=== PATIENT | male | born 1955 | race African-American/Black ===

== ENCOUNTER 2019-12-10 13:55 | Outpatient (REF) | payer OTHER, SELFPAY ==
[2019-12-10 15:33] LABS: Prostate Specific Antigen 0.05 ng/mL (<0.05-4.0)
== END 2019-12-10 13:56 | disposition home or self-care (01) ==
LOC: HO.LAB 13:55
PROVIDERS: PCP Internal Medicine; Visit Provider Urology
DX: C61 Malignant neoplasm of prostate (principal)
CPT/HCPCS: 84153

== ENCOUNTER 2020-01-28 09:55 | Outpatient (REF) | payer OTHER, SELFPAY ==
[2020-01-28 11:29] LABS: Prostate Specific Antigen 0.06 ng/mL (<0.05-4.0)
== END 2020-01-28 09:56 | disposition home or self-care (01) ==
LOC: HO.LAB 09:55
PROVIDERS: PCP Internal Medicine; Visit Provider Urology
DX: C61 Malignant neoplasm of prostate (principal)
CPT/HCPCS: 84153

== ENCOUNTER → 2020-03-04 14:15 | Outpatient (BNVA) | payer BC, SELFPAY | PROVIDERS: Visit Provider Urology | DX: C61 Malignant neoplasm of prostate (principal) | CPT/HCPCS: 96402; J9217 ==

== ENCOUNTER → 2020-04-09 14:01 | Outpatient (REF) | payer BC, SELFPAY ==
--- NOTE | 2020-04-09 14:00 | CA_ITS ---
Transthoracic Echocardiogram Patient (Last, First, Middle): Chico Gustafson H Gender: Male Date of : 1955 Age: 64 Procedure Date: 04/09/2020 Procedure Type: Transthoracic Echocardiogram Location: OP Height: 190.5 cm Weight: 72.58 kg BSA: 2.00 m2 Heart Rate: bpm BP: 120 / 80 mmHg Leather Colorer: NIKOLAS Referring MD: Duncan Noonan MD Symptoms: I34.0 NON RHEUMATIC MITRAL REGURG I34.1 MITRAL VALVE PROLAPS Study Quality: Good ECG Rhythm: Sinus Conclusions: - The left ventricular systolic function is hyperdynamic. The visually estimated ejection fraction is >70%. - The left atrium is severely dilated. - There is moderate posterior mitral leaflet prolapse. There is moderate to severe mitral valve regurgitation. Findings Left Ventricle Normal left ventricular cavity size. There is normal left ventricular wall thickness. The left ventricular systolic function is hyperdynamic. The visually estimated ejection fraction is >70%. There is no evidence of regional wall motion abnormalities. Diastolic function is normal for age. Right Ventricle Normal right ventricular cavity size and systolic function. Atria The left atrium is severely dilated. The right atrium is normal in size. Aortic Valve There is a normal trileaflet aortic valve. There is no aortic valve stenosis. There is trace (trivial) aortic valve regurgitation. Mitral Valve The mitral valve appears myxomatous. There is moderate posterior mitral leaflet prolapse. There is moderate to severe mitral valve regurgitation. There is no mitral valve stenosis. Pulmonic Valve The pulmonic valve is likely normal. There is mild pulmonic valve regurgitation. Tricuspid Valve Normal tricuspid valve structure. There is mild to moderate tricuspid valve regurgitation. The right ventricular systolic pressure is 35 mmHg. Top normal RVSP. Great Vessels The aortic annulus, sinuses of valsalva, and asc aorta are normal in size. Venous The inferior vena cava is normal in size and collapses greater than 50% with inspiration. Pericardium/Pleural There is no evidence of pericardial effusion. Prior Study Comparison No significant change compared to prior study dated: 10/22/2019. Measurements 2D Linear Measurements IVSd: 1.01 0.6-0.9/0.6-1.0 cm LVIDd: 4.96 3.9-5.3/4.2-5.9 cm LVIDd Index: 2.48 2.4-3.2/2.2-3.1 cm/m2 LVIDs: 2.73 2.0-3.6 cm LVPWd: 1.01 0.7-1.1 cm Ao Root: 3.70 2.1-3.5 cm LA Diam: 3.80 2.7-3.8/3.0-4.0 cm LAIDs Index: 1.90 1.5-2.3 cm/m2 LV Mass: 226.77 67-162/88-224 g LV Mass Index: 113.38 43-95/49-115 g/m2 LVOT Diam: 2.10 3.0+(-)1.3 cm 2D Systolic Function EF 4C: 73.90 >55% EF 2C: 72.70 >55% EF BiP: 73.30 >55% Mitral Valve MV Pk E: 1.03 MV PK A: 0.50 MV Decel Time: 190.00 E/A: 2.10 E'Lateral: 16.40 E'Medial: 8.61 E/E' Med: 12.00 E/E' Lat: 6.30 PHT: 56.00 MVA PHT: 3.93 Decel [place]: 5.43 Aortic Valve AoV Pk Alexis: 1.57 AoV Mn Alexis: 1.09 AoV VTI: 0.30 AoV Pk Grad: 10.00 Aov Mn Grad: 5.00 LUIS Cont.VTI: 2.60 LVOT LVOT Pk Alexis: 1.30 LVOT Mn Alexis: 0.76 LVOT VTI: 0.23 LVOT Pk Grad: 7.00 LVOT Mn Grad: 3.00 LVOT Diam: 2.10 LVOT Area: 3.46 Diastolic Function MV Pk E: 1.03 MV Pk A: 0.50 E/A: 2.10 E'Medial: 8.61 E/E' Med: 12.00 E' Laterial: 16.40 E/E' Lat: 6.30 Tricuspid Valve TR Pk Alexis: 2.84 TR Pk Grad: 32.00 RA Press: 3.00 RVSP: 35.00 Great Vessels Aorta Ao Root-2D: 3.70 2.0-3.7 cm Ao Asc: 3.30 2.1-3.4 cm Ao Arch: 3.50 Updated in Other Vendor System with Status of Final Duncan Noonan MD electronically signed on 04/12/2020 12:44:50 PM with status of Final
== END ==
LOC: HO.CARD 14:01
PROVIDERS: Visit Provider Internal Medicine
DX: I34.0 Nonrheumatic mitral (valve) insufficiency (principal); I34.1 Nonrheumatic mitral (valve) prolapse
CPT/HCPCS: 93306

== ENCOUNTER → 2020-04-30 14:14 | Outpatient (BNVA) | payer BC, SELFPAY | PROVIDERS: PCP Internal Medicine; Visit Provider Internal Medicine ==

== ENCOUNTER 2020-06-13 08:36 | Day surgery (SDC) | payer BC, SELFPAY ==
[2020-06-06 14:40] VITALS: BMI 19.3
--- NOTE | 2020-06-11 12:40 | P.CONAN_ITS ---
Documented by User: Coco Valdez 06/11/20 12:40 HPI - Anesthesia Eval Consult details Narrative: 64yo M for Transesophageal Echocardiogram [facility] Active Problems Active Problems: All Active Problems (Updated 06/06/20 @ 14:45 by Roro Middleton) Essential hypertension (Acute) Non-rheumatic mitral regurgitation (Acute) Past Medical History Medical History BPH (benign prostatic hyperplasia) Elevated PSA Essential hypertension Non-rheumatic mitral regurgitation Prostate cancer UTI (urinary tract infection) Family History Family History Other AA (alcohol abuse) HTN (hypertension) Surgical History Surgical History H/O colonoscopy History of esophagogastroduodenoscopy (EGD) Social History Social History Advance Directives Information Provided: No Meds Allergies Allergy/AdvReac Type Severity Reaction Status Date / Time No Known Allergies Allergy Verified 06/06/20 14:12 [No Known Allergies*] Home Medications Medication Instructions Recorded Confirmed Last Taken Type amlodipine 5 mg tablet 5 mg PO DAILY 01/25/20 06/06/20 06/13/20 History tamsulosin 0.4 mg capsule 0.4 mg PO DAILY 01/25/20 06/06/20 Unknown History Exam Exam Date and Time: June 11, 2020 1240 Height,Weight and Vital Signs: Height 6 ft 3 in Weight 70.4 kg Narrative Narrative: ECHO 04/2020 Conclusions: - The left ventricular systolic function is hyperdynamic. The visually estimated ejection fraction is >70%. - The left atrium is severely dilated. - There is moderate posterior mitral leaflet prolapse. There is moderate to severe mitral valve regurgitation. Assessment and Plan Assessment Anesthesia Assessment: Chart Reviewed Documented by User: Pao Luo 06/13/20 11:07 [facility] Past Medical History Medical History BPH (benign prostatic hyperplasia) Elevated PSA Essential hypertension Non-rheumatic mitral regurgitation Prostate cancer UTI (urinary tract infection) Family History Family History Other AA (alcohol abuse) HTN (hypertension) Family history of problems with anesthesia: No Surgical History Surgical History H/O colonoscopy History of esophagogastroduodenoscopy (EGD) History of Problems with Anesthesia: No Social History Social History Advance Directives Information Provided: No Meds Allergies Allergy/AdvReac Type Severity Reaction Status Date / Time No Known Allergies Allergy Verified 06/06/20 14:12 [No Known Allergies*] Home Medications Medication Instructions Recorded Confirmed Last Taken Type amlodipine 5 mg tablet 5 mg PO DAILY 01/25/20 06/06/20 06/13/20 History tamsulosin 0.4 mg capsule 0.4 mg PO DAILY 01/25/20 06/06/20 Unknown History Exam Height,Weight and Vital Signs: Vital Signs Temp Pulse Resp BP Pulse Ox 96.5 F L 67 18 152/93 H 99 06/13/20 09:01 06/13/20 09:01 06/13/20 09:01 06/13/20 09:01 06/13/20 09:01 Pertinent Lab Results Pertinent Lab Results: EK06/13/2020- [id number].?LAE. RBBB. LAFB. Bifascicular block. LVH Airway Mallampati Class: II TM Dist: >3cm Neck ROM: Full Heart: RRR + murmur Lungs: CTAB Assessment and Plan Assessment Anesthesia Assessment: Anesthesia Plan Discussed and Chart Reviewed Final Anesthetic Review NPO: Yes ASA Class: II Final Preanesthetic Review: No Changes in Pt Med Stat, Meds/Allgs Chart Reviewed, Consent Obtained/Reviewed and Anes Risks/Benef Reviewed Patient Risk: Intermediate Procedure Risk: Low Assessment/Block/Sedation in SS: Assess/Block/Sedation-SS Anesthetic Plan Anesthetic Plan: MAC: Disposition: Standard PACU
--- NOTE | 2020-06-13 | ECG_ITS ---
Test Reason : CARDIAC TEST Blood Pressure : / mmHG Vent. Rate : 061 BPM Atrial Rate : 061 BPM P-R Int : 172 ms QRS Dur : 140 ms QT Int : 458 ms P-R-T Axes : 070 -63 009 degrees QTc Int : 461 ms Normal sinus rhythm Possible Left atrial enlargement Right bundle branch block Left anterior fascicular block Bifascicular block Abnormal ECG When compared with ECG of 21-FEB-2017 14:40, Vent. rate has decreased BY 32 BPM Referred By: Pao Luo Electronically Signed By:ELSIE DAY
--- NOTE | 2020-06-13 06:53 | CA_ITS ---
Transesophageal Echocardiogram Patient (Last, First, Middle): Ch[place] Gustafson H Gender: Male Date of : 1955 Age: 64 Procedure Date: 06/13/2020 Procedure Type: Transesophageal Echocardiogram Location: [facility] Height: 190.5 cm Weight: kg BP: 135 / 70 mmHg Striker Off: MARYSE Cordero MD: Duncan Noonan MD Robotic Maintenance Technician: Dnucan Noonan MD Symptoms: I34.0 - Nonrheumatic mitral (valve) insufficiency Conclusion: ??? The left ventricular systolic function is normal. The visually estimated ejection fraction is between 60-65%. ??? The mitral valve appears myxomatous. There is severe posterior mitral leaflet prolapse. There is severe mitral valve regurgitation. ??? P2 leaflet seems most involved and part of P3. ??? Effective regurgitant orifice area calculated to be 0.39sqcm; 0.32sqcm; 0.3sqcm; 0.45sqcm in different views (average 0.36sqcm); regurgitant volumes 80ml, 65ml; 64ml; 96ml in different views (average 76ml). ??? Myxomatous tricuspid valve is noted. There is mild to moderate tricuspid valve regurgitation. Findings Procedure Information The quality of the study was good. Consent was obtained prior to the procedure. Pre ROSITA oral cavity was checked and revealed no overcrowding. The adult 3D probe was passed with no difficulty. This was a technically good study. Normal sinus rhythm noted at rest. Left Ventricle Normal left ventricular cavity size. The left ventricular systolic function is normal. The visually estimated ejection fraction is between 60-65%. There is no evidence of regional wall motion abnormalities. Right Ventricle Normal right ventricular cavity size and systolic function. Atria There is no evidence of a thrombus in the left atrial appendage. There is no evidence of interatrial shunt. Aortic Valve There is a normal trileaflet aortic valve. There is no aortic valve stenosis. There is trace (trivial) aortic valve regurgitation. Mitral Valve The mitral valve appears myxomatous. There is severe posterior mitral leaflet prolapse. There is severe mitral valve regurgitation. The mitral regurgitation jet is directed centrally. There is no mitral valve stenosis. P2 leaflet seems most involved and part of P3. Effective regurgitant orifice area calculated to be 0.39sqcm; 0.32sqcm; 0.3sqcm;.45sqcm in different views (average 0.36sqcm); regurgitant volumes 80ml, 65ml; 64ml; 96ml in different views (average 76ml). Pulmonic Valve The pulmonic valve was not well visualized. There is trace pulmonic valve regurgitation. Tricuspid Valve Myxomatous tricuspid valve is noted. There is mild to moderate tricuspid valve regurgitation. Great Vessels All visible segments of the aorta are normal in size. Pericardium/Pleural There is no evidence of pericardial effusion. Prior Study Comparison No significant change compared to prior study dated: 04/09/2020. Measurements Mitral Valve MR Vol - PW Dopp: 79.42 MR VTI: 2.09 MR ERO: 38.00 MR Alias Alexis: 0.39 MR RAD: 1.00 Updated by Duncan Noonan on 04:53 PM with Status of Final Duncan Noonan MD electronically signed on 06/13/2020 4:53:56 PM with status of Final
[2020-06-13 09:01] VITALS: BP 152/93; PULSE 67; RESP 18; TEMP 35.8; O2SAT 99
[2020-06-13] MEDS: Lactated Ringers 1,000 ML 100 ML IVCONT (09:22)
--- NOTE | 2020-06-13 10:07 | MHC.SHP ---
Pre-Procedural Eval Section B Chief Complaint: Mitral Valve Insufficiency Allergies: Allergies Allergy/AdvReac Type Severity Reaction Status Date / Time No Known Allergies Allergy Verified 06/06/20 14:12 [No Known Allergies*] Plan I have reviewed the history and physical and performed a pertinent physical examination on my patient. No changes have occurred unless specified.
[2020-06-13 10:55] VITALS: BP 116/72; PULSE 66; RESP 16; TEMP 36.9; O2SAT 97
[2020-06-13 11:10] VITALS: BP 115/72; PULSE 64; RESP 18; O2SAT 100
[2020-06-13 11:22] VITALS: BP 150/88; PULSE 66; RESP 18; TEMP 36.6; O2SAT 100
== END 2020-06-13 11:52 | disposition home or self-care (01) ==
PROVIDERS: PCP Internal Medicine; Visit Provider Internal Medicine
PROC: (CPT 93312; principal; 2020-06-13 10:30)
DX: I07.1 Rheumatic tricuspid insufficiency (principal); I34.0 Nonrheumatic mitral (valve) insufficiency
CPT/HCPCS: 93005; 93312; J2250

== ENCOUNTER 2020-06-16 13:48 | Outpatient (REF) | payer BC, SELFPAY ==
[2020-06-16 15:36] LABS: Prostate Specific Antigen < 0.05 ng/mL (<0.05-4.0)
== END 2020-06-16 13:49 | disposition home or self-care (01) ==
LOC: HO.LAB 13:48
PROVIDERS: PCP Internal Medicine; Visit Provider Urology
DX: Z12.5 Encounter for screening for malignant neoplasm of prostate (principal); C61 Malignant neoplasm of prostate
CPT/HCPCS: 36415; 84153

== ENCOUNTER → 2020-06-17 13:56 | Outpatient (BNVA) | payer BC, SELFPAY | PROVIDERS: PCP Internal Medicine; Visit Provider Urology ==

== ENCOUNTER 2020-06-30 13:49 | Outpatient (REF) | payer BC, SELFPAY ==
[2020-06-30 18:06] LABS: Hematocrit 38.5 % (42-52); Hemoglobin 12.5 g/dl (14.0-18.0); Mean Corpuscular HGB Conc 32.5 g/dl (31.0-36.0); Mean Corpuscular Hemoglobin 28.1 pg (27.0-33.0); Mean Corpuscular Volume 86.5 fL (80-98); Mean Platelet Volume 10.5 fL (9.4-12.4); Platelet Count 252 X10*3/uL (160-400); Red Blood Count 4.45 X10*6/uL (4.60-5.80); Red Cell Distribution Width 15.2 % (11.0-16.0); White Blood Count 4.2 X10*3/uL (4.8-10.8)
[2020-06-30 18:13] LABS: Prothrombin Time 12.3 SEC (10.8-13.0)
[2020-06-30 18:26] LABS: Anion Gap 15 (12-20); Blood Urea Nitrogen 18 mg/dL (9-16); Carbon Dioxide 26 mmol/L (22-29); Chloride 105 mmol/L (96-108); Estimated Glomerular Filt Rate > 60; Glucose Random 126 mg/dL (60-115); Potassium 4.1 mmol/L (3.3-5.1); Sodium 142 mmol/L (135-145)
== END 2020-06-30 13:50 | disposition home or self-care (01) ==
LOC: HO.LAB 13:49
PROVIDERS: PCP Internal Medicine; Referring Provider Internal Medicine; Visit Provider Internal Medicine
DX: I34.0 Nonrheumatic mitral (valve) insufficiency (principal); I10 Essential (primary) hypertension; R06.02 Shortness of breath; R53.83 Other fatigue; N40.0 Benign prostatic hyperplasia without lower urinary tract symptoms; R97.20 Elevated prostate specific antigen [PSA]; Z79.899 Other long term (current) drug therapy
CPT/HCPCS: 36415; 80048; 85027; 85610

== ENCOUNTER → 2020-07-31 14:25 | Outpatient (BNVA) | payer BC, SELFPAY | PROVIDERS: PCP Internal Medicine; Referring Provider Internal Medicine; Visit Provider Internal Medicine ==

== ENCOUNTER 2020-09-01 09:48 | Outpatient (REF) | payer BC, SELFPAY ==
[2020-09-01 11:19] LABS: Prostate Specific Antigen 0.05 ng/mL (<0.05-4.0)
[2020-09-05 12:31] LABS: Testosterone, Total 13 ng/dL (250-1100)
== END 2020-09-01 09:49 | disposition home or self-care (01) ==
LOC: HO.LAB 09:48
PROVIDERS: PCP Internal Medicine; Visit Provider Urology
DX: Z12.5 Encounter for screening for malignant neoplasm of prostate (principal); C61 Malignant neoplasm of prostate
CPT/HCPCS: 36415; 84153; 84403

== ENCOUNTER → 2020-09-19 14:33 | Outpatient (BNVA) | payer BC, SELFPAY | PROVIDERS: PCP Internal Medicine; Visit Provider Urology ==

== ENCOUNTER → 2020-10-20 12:14 | Outpatient (BNVA) | payer BC, SELFPAY | PROVIDERS: PCP Internal Medicine; Referring Provider Internal Medicine; Visit Provider Internal Medicine ==

== ENCOUNTER 2020-10-28 11:25 | Outpatient (REF) | payer BC, SELFPAY ==
[2020-10-28 12:24] LABS: Appearance Urine CLEAR; Color Urine YELLOW; Glucose Urine UA NEG (NEG); Leukocyte Esterase Urine NEG (NEG); Nitrite Urine NEG (NEG); Urine Blood TRACE (NEG); Urine Ketones NEG (NEG); Urine Protein NEG (NEG-TRACE)
[2020-10-28 12:58] LABS: Mucus Urine 1+ /LPF; Squamous Epithelial Cell Urine TRACE /LPF
== END 2020-10-28 11:26 | disposition home or self-care (01) ==
LOC: HO.LAB 11:25
PROVIDERS: PCP Internal Medicine; Visit Provider Urology
DX: N40.1 Benign prostatic hyperplasia with lower urinary tract symptoms (principal)
CPT/HCPCS: 81001; 87086

== ENCOUNTER → 2020-11-24 14:41 | Outpatient (REF) | payer BC, SELFPAY ==
--- NOTE | 2020-11-24 15:14 | CA_ITS ---
Transthoracic Echocardiogram Patient (Last, First, Middle): Chico Gustafson H Gender: Male Date of : 1955 Age: 65 Procedure Date: 11/24/2020 Procedure Type: Transthoracic Echocardiogram Location: OP Height: 190.5 cm Weight: 74.84 kg BSA: 2.02 m2 Heart Rate: bpm BP: 118 / 80 mmHg Gis Consultant: VH/CP Referring MD: Duncan Noonan MD Symptoms: Z98.890 - Other specified postprocedural states Study Quality: Fair ECG Rhythm: Sinus Conclusions: - LVEF difficult to calculate due to paradoxical septal motion but likely > 50%. - There is moderately decreased right ventricular systolic function. - Myxomatous mitral valve, status post repair with no significant stenosis or regurgitation. Findings Left Ventricle Normal left ventricular cavity size. There is normal left ventricular wall thickness. There is paradoxical septal motion consistent with post-operative status. Diastolic function is normal for age. LVEF difficult to calculate due to paradoxical septal motion but likely > 50%. Right Ventricle Normal right ventricular cavity size. There is moderately decreased right ventricular systolic function. There is a pacemaker wire seen in the right ventricle. TAPSE 0.96cm. Atria Both atria are normal in size. Aortic Valve There is a normal trileaflet aortic valve. There is no aortic valve stenosis. There is trace (trivial) aortic valve regurgitation. Mitral Valve The mitral valve appears myxomatous. There is trace mitral valve regurgitation. There is no mitral valve stenosis. s/p repair. Mean gradient across the mitral valve 2 mm Hg at 66/Min. Pulmonic Valve The pulmonic valve was not well visualized. There is mild pulmonic valve regurgitation. Tricuspid Valve There is trace tricuspid valve regurgitation. The pulmonary artery systolic pressure is normal. Great Vessels The aortic annulus, sinuses of valsalva, and asc aorta are normal in size. Venous The inferior vena cava is normal in size and collapses greater than 50% with inspiration. Pericardium/Pleural There is no evidence of pericardial effusion. Prior Study Comparison Changes noted compared to prior study dated: 06/13/2020. s/p mitral valve repair. Measurements 2D Linear Measurements IVSd: 1.23 0.6-0.9/0.6-1.0 cm LVIDd: 4.20 3.9-5.3/4.2-5.9 cm LVIDd Index: 2.08 2.4-3.2/2.2-3.1 cm/m2 LVIDs: 2.89 2.0-3.6 cm LVPWd: 1.17 0.7-1.1 cm Ao Root: 3.60 2.1-3.5 cm LA Diam: 3.30 2.7-3.8/3.0-4.0 cm LAIDs Index: 1.63 1.5-2.3 cm/m2 LV Mass: 221.94 67-162/88-224 g LV Mass Index: 109.87 43-95/49-115 g/m2 LVOT Diam: 2.10 3.0+(-)1.3 cm 2D Systolic Function EF 4C: 35.10 >55% EF 2C: 24.70 >55% Mitral Valve MV VTI: 0.33 MV Pk Alexis: 1.03 MV Mn Alexis: 0.69 MV Pk Grad: 4.00 MV Mn Grad: 2.00 MV Pk E: 0.87 MV PK A: 0.86 MV Decel Time: 296.00 E/A: 1.00 E'Lateral: 10.80 E'Medial: 4.46 E/E' Med: 19.60 E/E' Lat: 8.10 PHT: 87.00 MVA PHT: 2.53 MVA Continuity: 2.10 Decel [place]: 2.96 Aortic Valve AoV Pk Alexis: 1.18 AoV Mn Alexis: 0.92 AoV VTI: 0.26 AoV Pk Grad: 6.00 Aov Mn Grad: 4.00 LUIS Cont.VTI: 2.60 LVOT LVOT Pk Alexis: 0.97 LVOT Mn Alexis: 0.71 LVOT VTI: 0.20 LVOT Pk Grad: 4.00 LVOT Mn Grad: 2.00 LVOT Diam: 2.10 LVOT Area: 3.46 Diastolic Function MV Pk E: 0.87 MV Pk A: 0.86 E/A: 1.00 E'Medial: 4.46 E/E' Med: 19.60 E' Laterial: 10.80 E/E' Lat: 8.10 Right Ventricle TAPSE (mm): 1.10 TVS' Alexis: 7.50 Tricuspid Valve TV Pk Alexis: 0.86 TV Mn Alexis: 0.51 TV Pk Grad: 3.00 TV Mn Grad: 1.00 TR Pk Alexis: 1.31 TR Pk Grad: 7.00 Great Vessels Aorta Ao Root-2D: 3.60 2.0-3.7 cm Ao Asc: 3.40 2.1-3.4 cm Ao Arch: 3.20 Updated in Other Vendor System with Status of Final Duncan Noonan MD electronically signed on 11/25/2020 4:50:39 PM with status of Final
== END ==
LOC: HO.CARD 14:41
PROVIDERS: PCP Internal Medicine; Visit Provider Internal Medicine
DX: Z98.890 Other specified postprocedural states (principal)
CPT/HCPCS: 93306

== ENCOUNTER 2020-12-16 09:28 | Outpatient (REF) | payer BC, SELFPAY ==
[2020-12-16 09:55] LABS: MANUAL DIFF FLAG NO
[2020-12-16 10:14] LABS: Basophils Absolute Auto 0.1 X10*3/uL (0.0-0.2); Basophils Percent Auto 0.8 % (0-2); Eosinophils Absolute Auto 0.6 X10*3/uL (0.0-0.4); Eosinophils Percent Auto 9.9 % (0-4); Hemoglobin 12.2 g/dl (14.0-18.0); Imm Gran Abs Auto 0.01 X10*3/uL (0.00-0.03); Imm Gran Pct Auto 0.2 % (0.0-0.4); Lymphocytes Absolute Auto 1.2 X10*3/uL (1.2-4.9); Mean Corpuscular HGB Conc 31.3 g/dl (31.0-36.0); Mean Corpuscular Hemoglobin 25.3 pg (27.0-33.0); Mean Corpuscular Volume 80.7 fL (80.0-98.0); Mean Platelet Volume 9.4 fL (9.4-12.4); Monocytes Absolute Auto 0.5 X10*3/uL (0.1-1.2); Monocytes Percent Auto 7.6 % (2-11); Neutrophils Absolute Auto 3.8 x10*3/uL (2.0-8.3); Neutrophils Percent Auto 61.5 % (45-73); Platelet Count 286 X10*3/uL (160-400); Red Blood Count 4.83 X10*6/uL (4.60-5.80); White Blood Count 6.2 X10*3/uL (4.8-10.8)
[2020-12-16 10:30] LABS: Appearance Urine CLOUDY; Color Urine YELLOW; Glucose Urine UA NEG (NEG); Leukocyte Esterase Urine 3+ (NEG); Nitrite Urine POS (NEG); Specific Gravity - Urine 1.025 (1.005-1.025); Urine Blood 3+ (NEG); Urine Ketones 5 MG/DL (NEG); Urine Protein 3+ MG/DL (NEG-TRACE)
[2020-12-16 10:39] LABS: Bacteria Urine TRACE /LPF; RBC Urine 50-75 /HPF (0); WBC Urine TNTC /HPF (0-4)
[2020-12-16 10:46] LABS: Alanine Aminotransferase 14 U/L (0-40); Albumin Level 4.2 g/dL (3.5-5.0); Alkaline Phosphatase 94 U/L (39-117); Anion Gap 13 (12-20); Aspartate Amino Transferase 17 U/L (5-37); Bilirubin Total 0.3 mg/dL (0.0-1.0); Blood Urea Nitrogen 19 mg/dL (9-16); Calcium 9.7 mg/dL (8.4-10.2); Carbon Dioxide 25 mmol/L (22-29); Chloride 107 mmol/L (96-108); Cholesterol 161 mg/dL; Estimated Glomerular Filt Rate > 60; Glucose Fasting 109 mg/dL (60-99); HDL Cholesterol 64 mg/dL; LDL Cholesterol Calculated 86 mg/dl; Potassium 4.1 mmol/L (3.3-5.1); Sodium 141 mmol/L (135-145); Total Protein 7.3 g/dL (6.5-8.0); Triglycerides 57 mg/dL
[2020-12-16 11:05] LABS: Prostate Specific Antigen < 0.05 ng/mL (<0.05-4.0)
[2020-12-20 10:08] LABS: Testosterone, Total 35 ng/dL (250-1100)
== END 2020-12-16 09:29 | disposition home or self-care (01) ==
LOC: HO.LAB 09:28
PROVIDERS: Absent Provider Urology; PCP Internal Medicine; Visit Provider Internal Medicine
DX: Z12.5 Encounter for screening for malignant neoplasm of prostate (principal); I10 Essential (primary) hypertension; Z98.890 Other specified postprocedural states
CPT/HCPCS: 36415; 80053; 80061; 81001; 84153; 84403; 85025

== ENCOUNTER → 2021-01-20 12:53 | Outpatient (BNVA) | payer BC, SELFPAY | PROVIDERS: PCP Internal Medicine; Visit Provider Urology | DX: N40.1 Benign prostatic hyperplasia with lower urinary tract symptoms (principal); C61 Malignant neoplasm of prostate | CPT/HCPCS: 52000 ==

== ENCOUNTER → 2021-01-27 14:11 | Outpatient (BNVA) | payer BC, SELFPAY | PROVIDERS: PCP Internal Medicine; Referring Provider Internal Medicine; Visit Provider Internal Medicine ==

== ENCOUNTER 2021-04-20 14:07 | Outpatient (REF) | payer BC, SELFPAY ==
[2021-04-20 15:40] LABS: Prostate Specific Antigen 0.09 ng/mL (<0.05-4.0)
[2021-04-24 11:11] LABS: Testosterone, Total 73 ng/dL (250-1100)
== END 2021-04-20 14:08 | disposition home or self-care (01) ==
LOC: HO.LAB 14:07
PROVIDERS: PCP Internal Medicine; Visit Provider Urology
DX: Z12.5 Encounter for screening for malignant neoplasm of prostate (principal); C61 Malignant neoplasm of prostate
CPT/HCPCS: 36415; 84153; 84403

== ENCOUNTER → 2021-05-18 13:00 | Outpatient (BNVA) | payer BC, SELFPAY | PROVIDERS: PCP Internal Medicine; Referring Provider Internal Medicine; Visit Provider Internal Medicine | DX: Z45.018 Encounter for adjustment and management of other part of cardiac pacemaker (principal); I44.2 Atrioventricular block, complete; I10 Essential (primary) hypertension; Z98.890 Other specified postprocedural states | CPT/HCPCS: 93005 ==

== ENCOUNTER → 2021-05-19 11:34 | Outpatient (BNVA) | payer BC, SELFPAY | PROVIDERS: PCP Internal Medicine; Visit Provider Urology | DX: Z13.89 Encounter for screening for other disorder (principal) ==

== ENCOUNTER 2021-08-25 11:19 | Outpatient (REF) | payer BC, SELFPAY ==
[2021-08-25 13:26] LABS: Prostate Specific Antigen 0.08 ng/mL (<0.05-4.0)
[2021-09-02 11:07] LABS: Testosterone, Total 72 ng/dL (250-1100)
== END 2021-08-25 11:20 | disposition home or self-care (01) ==
LOC: HO.LAB 11:19
PROVIDERS: PCP Internal Medicine; Visit Provider Urology
DX: Z12.5 Encounter for screening for malignant neoplasm of prostate (principal); C61 Malignant neoplasm of prostate
CPT/HCPCS: 36415; 84153; 84403

== ENCOUNTER 2021-09-21 14:12 | Outpatient (REF) | payer BC, SELFPAY ==
[2021-09-21 14:27] LABS: MANUAL DIFF FLAG NO
[2021-09-21 15:19] LABS: Basophils Absolute Auto 0.1 X10*3/uL (0.0-0.2); Basophils Percent Auto 1.2 % (0-2); Eosinophils Absolute Auto 0.4 X10*3/uL (0.0-0.4); Eosinophils Percent Auto 9.1 % (0-4); Hematocrit 39.3 % (42.0-52.0); Hemoglobin 12.7 g/dl (14.0-18.0); Imm Gran Abs Auto 0.01 X10*3/uL (0.00-0.03); Imm Gran Pct Auto 0.2 % (0.0-0.4); Lymphocytes Absolute Auto 1.4 X10*3/uL (1.2-4.9); Lymphocytes Percent Auto 32.5 % (20-40); Mean Corpuscular HGB Conc 32.3 g/dl (31.0-36.0); Mean Corpuscular Hemoglobin 28.3 pg (27.0-33.0); Mean Corpuscular Volume 87.7 fL (80.0-98.0); Monocytes Absolute Auto 0.6 X10*3/uL (0.1-1.2); Monocytes Percent Auto 14.1 % (2-11); Neutrophils Absolute Auto 1.8 x10*3/uL (2.0-8.3); Neutrophils Percent Auto 42.9 % (45-73); Platelet Count 254 X10*3/uL (160-400); Red Blood Count 4.48 X10*6/uL (4.60-5.80); Red Cell Distribution Width 15.4 % (11.0-16.0); White Blood Count 4.2 X10*3/uL (4.8-10.8)
[2021-09-21 15:41] LABS: Alanine Aminotransferase 21 U/L (0-40); Albumin Level 4.1 g/dL (3.5-5.0); Alkaline Phosphatase 67 U/L (39-117); Anion Gap 12 (12-20); Aspartate Amino Transferase 27 U/L (5-37); Bilirubin Total 0.2 mg/dL (0.0-1.0); Blood Urea Nitrogen 17 mg/dL (9-16); Calcium 9.4 mg/dL (8.4-10.2); Carbon Dioxide 28 mmol/L (22-29); Chloride 106 mmol/L (96-108); Estimated Glomerular Filt Rate 57; Glucose Random 84 mg/dL (60-115); Potassium 4.3 mmol/L (3.3-5.1); Sodium 142 mmol/L (135-145); Total Protein 6.8 g/dL (6.5-8.0)
== END 2021-09-21 14:13 | disposition home or self-care (01) ==
LOC: HO.LAB 14:12
PROVIDERS: PCP Internal Medicine; Visit Provider Internal Medicine
DX: D64.9 Anemia, unspecified (principal); I10 Essential (primary) hypertension; R73.03 Prediabetes
CPT/HCPCS: 36415; 80053; 85025

== ENCOUNTER → 2021-10-01 14:33 | Outpatient (BNVA) | payer BC, SELFPAY | PROVIDERS: PCP Internal Medicine; Visit Provider Urology | DX: N40.0 Benign prostatic hyperplasia without lower urinary tract symptoms (principal); C61 Malignant neoplasm of prostate; E29.1 Testicular hypofunction | CPT/HCPCS: 51798 ==

== ENCOUNTER → 2021-11-09 14:00 | Outpatient (REF) | payer BC, SELFPAY ==
--- NOTE | 2021-11-09 14:02 | CA_ITS ---
Transthoracic Echocardiogram Patient (Last, First, Middle): Ch[place] Gustafson H Gender: Male Date of : 1955 Age: 66 Procedure Date: 11/09/2021 Procedure Type: Transthoracic Echocardiogram Location: OP Height: 190.5 cm Weight: 72.58 kg BSA: 2.00 m2 Heart Rate: bpm BP: 114 / 76 mmHg Stranner: DONATO Referring MD: Duncan Noonan MD Television Script Writer: Martir Wright MD Symptoms: Z98.890 - Other specified postprocedural states Study Quality: Adequate ECG Rhythm: Ventriculary paced rhythm Conclusions: - 1. Normal LV systolic function with pseudonormal filling pattern 2. Mitral valve repair appears intact 3. Normal RV systolic pressure 4. No gross pericardial effusion Findings Left Ventricle Normal left ventricular size, thickness, and systolic function. The visually estimated ejection fraction is between 60-65%. There is paradoxical septal motion consistent with a right ventricular pacemaker. Spectral Doppler is indicative of a pseudonormal filling pattern. E/E prime ratio is between 8 and 15 consistent with indeterminate filling pressures. Right Ventricle Mildly increased right ventricular cavity size. There is borderline right ventricular systolic function. There is a pacemaker wire seen in the right ventricle. Atria The left atrium is normal in size. Interatrial shunt cannot be excluded. The right atrium is likely dilated. A pacemaker wire is identified in the right atrium. Aortic Valve Normal aortic valve structure and function. There is no aortic valve stenosis. There is no aortic valve regurgitation. Mitral Valve There is mild anterior and moderate posterior mitral leaflet thickening. There is no mitral valve regurgitation. There is no mitral valve stenosis. Mitral annuloplasty ring in place Pulmonic Valve The pulmonic valve is likely normal. There is mild pulmonic valve regurgitation. Tricuspid Valve Normal tricuspid valve structure. There is trace tricuspid valve regurgitation. The right ventricular systolic pressure is normal. The right ventricular systolic pressure is 15 mmHg. Normal right atrial pressure. There is no evidence of pulmonary hypertension. Great Vessels All visible segments of the aorta are normal in size. The pulmonary artery was not well visualized. Venous The inferior vena cava is normal in size and collapses greater than 50% with inspiration. Pericardium/Pleural There is no evidence of pericardial effusion. Prior Study Comparison Changes noted compared to prior study dated: 11/24/2020. RV systolic function does not appear as depressed. LV systolic function is normal Measurements 2D Linear Measurements IVSd: 0.85 0.6-0.9/0.6-1.0 cm LVIDd: 4.12 3.9-5.3/4.2-5.9 cm LVIDd Index: 2.06 2.4-3.2/2.2-3.1 cm/m2 LVIDs: 2.46 2.0-3.6 cm LVPWd: 1.11 0.7-1.1 cm LA Diam: 3.30 2.7-3.8/3.0-4.0 cm LAIDs Index: 1.65 1.5-2.3 cm/m2 LV Mass: 160.44 67-162/88-224 g LV Mass Index: 80.22 43-95/49-115 g/m2 LVOT Diam: 2.10 3.0+(-)1.3 cm 2D Systolic Function EF 4C: 56.40 >55% EF 2C: 63.90 >55% EF BiP: 60.20 >55% Mitral Valve MV VTI: 0.45 MV Pk Alexis: 1.32 MV Mn Alexis: 0.79 MV Pk Grad: 7.00 MV Mn Grad: 3.00 MV Pk E: 0.83 MV PK A: 0.89 MV Decel Time: 254.00 E/A: 0.90 E'Lateral: 7.72 E'Medial: 4.90 E/E' Med: 17.00 E/E' Lat: 10.80 PHT: 74.00 MVA PHT: 2.97 MVA Continuity: 1.89 Decel [place]: 3.28 Aortic Valve AoV Pk Alexis: 1.30 AoV Mn Alexis: 0.98 AoV VTI: 0.30 AoV Pk Grad: 7.00 Aov Mn Grad: 4.00 LUIS Cont.VTI: 2.81 LVOT LVOT Pk Alexis: 1.17 LVOT Mn Alexis: 0.80 LVOT VTI: 0.24 LVOT Pk Grad: 5.00 LVOT Mn Grad: 3.00 LVOT Diam: 2.10 LVOT Area: 3.46 Diastolic Function MV Pk E: 0.83 MV Pk A: 0.89 E/A: 0.90 E'Medial: 4.90 E/E' Med: 17.00 E' Laterial: 7.72 E/E' Lat: 10.80 Right Ventricle TAPSE (mm): 12.20 TVS' Alexis: 9.79 Tricuspid Valve TR Pk Alexis: 1.74 TR Pk Grad: 12.00 RA Press: 3.00 RVSP: 15.00 Great Vessels Aorta Sinus of Valsalva: 3.90 2.0-3.[address] [place]: 2.97 1.7-3.4 cm Ao Asc: 3.20 2.1-3.4 cm Updated in Other Vendor System with Status of Final Martir Wright MD electronically signed on 11/09/2021 6:57:35 PM with status of Final
[2021-11-11 05:52] LABS: Follicle Stimulating Hormone 37.5 mIU/mL (1.6-8.0); Lutenizing Hormone 15.4 mIU/mL (1.6-15.2)
[2021-11-14 13:21] LABS: Testosterone, Total 83 ng/dL (250-1100)
== END ==
LOC: HO.CARD 14:00
PROVIDERS: Urology; PCP Internal Medicine; Visit Provider Internal Medicine
DX: Z98.890 Other specified postprocedural states (principal); E29.1 Testicular hypofunction
CPT/HCPCS: 36415; 83001; 83002; 84403; 93306

== ENCOUNTER 2021-11-13 13:27 | Outpatient (REF) | payer BC, SELFPAY ==
[2021-11-13 15:59] LABS: Appearance Urine Cloudy; Color Urine Yellow; Glucose Urine UA Negative (Negative); Leukocyte Esterase Urine Large (3+) (Negative); Nitrite Urine Negative (Negative); PH 5.5 (5.0-9.0); Specific Gravity - Urine 1.015 (1.005-1.025); UMIC TRIGGER UA YES; Urine Blood Large (3+) (Negative); Urine Ketones 15 mg/dL (Negative); Urine Protein 100 (2+) mg/dL (Neg-Trace)
[2021-11-13 16:04] LABS: Bacteria Urine 1+ (None Seen); Hyaline Casts Urine 0-2 /LPF (0-2); RBC Urine >20 /HPF (0-2); Squamous Epithelial Cell Urine 0-2 /HPF (0-2); WBC Urine >50 /HPF (0-5)
== END 2021-11-13 13:28 | disposition home or self-care (01) ==
LOC: HO.LAB 13:27
PROVIDERS: PCP Internal Medicine; Visit Provider Urology
DX: N40.1 Benign prostatic hyperplasia with lower urinary tract symptoms (principal)
CPT/HCPCS: 81001; 87086; 87088; 87186

== ENCOUNTER 2022-01-16 10:36 | Outpatient (REF) | payer BC, SELFPAY ==
[2022-01-16 10:48] LABS: MANUAL DIFF FLAG NO
[2022-01-16 11:05] LABS: Basophils Absolute Auto 0.1 X10*3/uL (0.0-0.2); Basophils Percent Auto 1.5 % (0-2); Eosinophils Absolute Auto 0.2 X10*3/uL (0.0-0.4); Eosinophils Percent Auto 5.8 % (0-4); Hematocrit 39.6 % (42.0-52.0); Hemoglobin 13.1 g/dl (14.0-18.0); Lymphocytes Absolute Auto 1.6 X10*3/uL (1.2-4.9); Lymphocytes Percent Auto 37.6 % (20-40); Mean Corpuscular HGB Conc 33.1 g/dl (31.0-36.0); Mean Corpuscular Hemoglobin 28.5 pg (27.0-33.0); Mean Corpuscular Volume 86.1 fL (80.0-98.0); Mean Platelet Volume 9.5 fL (9.4-12.4); Monocytes Absolute Auto 0.5 X10*3/uL (0.1-1.2); Monocytes Percent Auto 11.4 % (2-11); Neutrophils Absolute Auto 1.8 x10*3/uL (2.0-8.3); Neutrophils Percent Auto 43.7 % (45-73); Platelet Count 234 X10*3/uL (160-400); Red Cell Distribution Width 17.5 % (11.0-16.0); White Blood Count 4.1 X10*3/uL (4.8-10.8)
[2022-01-16 11:54] LABS: Alanine Aminotransferase 20 U/L (0-40); Albumin Level 4.2 g/dL (3.5-5.0); Alkaline Phosphatase 60 U/L (39-117); Anion Gap 13 (12-20); Aspartate Amino Transferase 25 U/L (5-37); Bilirubin Total 0.5 mg/dL (0.0-1.0); Blood Urea Nitrogen 18 mg/dL (9-16); Calcium 9.3 mg/dL (8.4-10.2); Carbon Dioxide 28 mmol/L (22-29); Chloride 108 mmol/L (96-108); Cholesterol 166 mg/dL; Estimated Glomerular Filt Rate 58; Glucose Fasting 78 mg/dL (60-99); HDL Cholesterol 83 mg/dL; LDL Cholesterol Calculated 70 mg/dl; Potassium 4.2 mmol/L (3.3-5.1); Sodium 145 mmol/L (135-145); Total Protein 6.7 g/dL (6.5-8.0); Triglycerides 67 mg/dL
== END 2022-01-16 10:37 | disposition home or self-care (01) ==
LOC: HO.LAB 10:36
PROVIDERS: PCP Internal Medicine; Visit Provider Internal Medicine
DX: Z00.00 Encounter for general adult medical examination without abnormal findings (principal)
CPT/HCPCS: 36415; 80053; 80061; 85025

== ENCOUNTER 2022-01-25 13:47 | Outpatient (REF) | payer BC, SELFPAY ==
[2022-01-25 15:22] LABS: PSA,Total (Free>4and<10) 0.24 ng/mL (0.00-4.00)
[2022-02-02 19:39] LABS: Testosterone, Free 144.4 pg/mL (35.0-155.0); Testosterone, Total 897 ng/dL (250-1100)
== END 2022-01-25 13:48 | disposition home or self-care (01) ==
LOC: HO.LAB 13:47
PROVIDERS: PCP Internal Medicine; Visit Provider Urology
DX: Z12.5 Encounter for screening for malignant neoplasm of prostate (principal); E29.1 Testicular hypofunction
CPT/HCPCS: 36415; 84153; 84402; 84403

== ENCOUNTER → 2022-02-17 12:56 | Outpatient (BNVA) | payer BC, SELFPAY | PROVIDERS: PCP Internal Medicine; Visit Provider Urology | DX: Z13.89 Encounter for screening for other disorder (principal) ==

== ENCOUNTER → 2022-04-16 11:37 | Outpatient (BNVA) | payer BC, SELFPAY | PROVIDERS: PCP Internal Medicine; Visit Provider Urology | DX: Z13.89 Encounter for screening for other disorder (principal) ==

== ENCOUNTER 2022-07-06 09:21 | Outpatient (REF) | payer BC, SELFPAY ==
[2022-07-06 09:34] LABS: MANUAL DIFF FLAG NO
[2022-07-06 10:01] LABS: Basophils Absolute Auto 0.1 X10*3/uL (0.0-0.2); Basophils Percent Auto 1.5 % (0-2); Eosinophils Absolute Auto 0.3 X10*3/uL (0.0-0.4); Eosinophils Percent Auto 6.6 % (0-4); Hematocrit 40.3 % (42.0-52.0); Hemoglobin 12.6 g/dl (14.0-18.0); Imm Gran Abs Auto 0.01 X10*3/uL (0.00-0.03); Imm Gran Pct Auto 0.2 % (0.0-0.4); Lymphocytes Absolute Auto 1.5 X10*3/uL (1.2-4.9); Lymphocytes Percent Auto 31.4 % (20-40); Mean Corpuscular HGB Conc 31.3 g/dl (31.0-36.0); Mean Corpuscular Hemoglobin 26.3 pg (27.0-33.0); Mean Corpuscular Volume 84.1 fL (80.0-98.0); Mean Platelet Volume 9.8 fL (9.4-12.4); Monocytes Absolute Auto 0.4 X10*3/uL (0.1-1.2); Monocytes Percent Auto 9.2 % (2-11); Neutrophils Absolute Auto 2.4 x10*3/uL (2.0-8.3); Neutrophils Percent Auto 51.1 % (45-73); Platelet Count 283 X10*3/uL (160-400); Red Blood Count 4.79 X10*6/uL (4.60-5.80); Red Cell Distribution Width 17.3 % (11.0-16.0); White Blood Count 4.7 X10*3/uL (4.8-10.8)
[2022-07-06 10:30] LABS: Anion Gap 12 (12-20); Blood Urea Nitrogen 10 mg/dL (9-16); Calcium 9.5 mg/dL (8.4-10.2); Carbon Dioxide 28 mmol/L (22-29); Chloride 107 mmol/L (96-108); Estimated Glomerular Filt Rate > 60; Glucose Random 95 mg/dL (60-115); Iron 49 mcg/dL (45-160); Percent Iron Saturation 14 % (15-50); Potassium 3.7 mmol/L (3.3-5.1); Sodium 143 mmol/L (135-145); Total Iron Binding Capacity 344 mcg/dL (228-428); Unsaturated Iron Binding 295 ug/dL
== END 2022-07-06 09:22 | disposition home or self-care (01) ==
LOC: HO.LAB 09:21
PROVIDERS: PCP Internal Medicine; Visit Provider Internal Medicine
DX: I12.9 Hypertensive chronic kidney disease with stage 1 through stage 4 chronic kidney disease, or unspecified chronic kidney disease (principal); N18.9 Chronic kidney disease, unspecified; D63.8 Anemia in other chronic diseases classified elsewhere
CPT/HCPCS: 36415; 80048; 83540; 85025

== ENCOUNTER 2022-08-06 09:01 | Outpatient (REF) | payer BC, SELFPAY ==
[2022-08-06 11:17] LABS: Prostate Specific Antigen 0.19 ng/mL (<0.05-4.0)
[2022-08-11 11:33] LABS: Testosterone, Total 837 ng/dL (250-1100)
== END 2022-08-06 09:02 | disposition home or self-care (01) ==
LOC: HO.LAB 09:01
PROVIDERS: PCP Internal Medicine; Visit Provider Urology
DX: Z12.5 Encounter for screening for malignant neoplasm of prostate (principal); E29.1 Testicular hypofunction
CPT/HCPCS: 36415; 84153; 84403

== ENCOUNTER 2022-08-12 08:41 | Outpatient (REF) | payer BC, SELFPAY ==
[2022-08-17 12:12] LABS: Testosterone, Total 191 ng/dL (250-1100)
== END 2022-08-12 08:42 | disposition home or self-care (01) ==
LOC: HO.LAB 08:41
PROVIDERS: Visit Provider Urology
DX: N40.1 Benign prostatic hyperplasia with lower urinary tract symptoms (principal); E29.1 Testicular hypofunction; Z12.5 Encounter for screening for malignant neoplasm of prostate
CPT/HCPCS: 36415; 81001; 84153; 84403; 87086; 87088; 87186

== ENCOUNTER 2022-08-17 11:17 | Outpatient (AMB) | payer BC, SELFPAY ==
--- NOTE | 2022-08-17 11:22 | A.OFFVIS_ITS ---
Intake Intake Visit Reasons: 4M PSA/Testo(set) Intake Note: Patient is present for Follow Up Labs Urology Med: Testosterone, Tamsulosin, Tadalafil Antibiotic Allergy: None Blood Thinner: Aspirin PVR: 0ml Patient states he recently has UTI was prescribed antibiotics (Macrobid) states that it is not fully gone Allergies No Known Allergies [No Known Allergies*] Allergy (Verified 08/17/22 11:23) Medication List - Last Reconciled 08/17/22 by Aden Pickett MD acyclovir 400 mg PO BID amlodipine 5 mg PO QAM aspirin 81 mg PO DAILY metoprolol tartrate 25 mg PO BID nitrofurantoin monohyd/m-cryst 100 mg (Macrobid) 100 mg PO BID 5 days tadalafil 5 mg PO DAILY 90 days tamsulosin 0.4 mg PO DAILY testosterone 2 pumps topical DAILY 28 days HPI HPI Comments History of Present Illness Details [place] is a very pleasant male. He is a patient of Dr. Fay. He is seen for the following urologic conditions - prostate cancer - hot flashes Testosterone remains elevated Reduced to 2 pumps PSA slight rise Check in 6 months Responds well to tadalafil Cardiac valve surgery for severe mitral regurg TKR Mar 2022 Erectile Dysfunction Tadalafil 5 mg Hypogonadism following EXBRT Had trial of clomiphene to restart testes - LH at 15 with minimal change in testosterone Labs - 01/28 T 897 P 0.24, 07/30 837 P 0.3 Therapeutic history - good response to 4 pump topical testosterone 897, reduce to 3 pumps Therapy - topical therapy Prostate cancer high-grade external beam radiation 2019 2 years of hormones Prostate cancer was diagnosed by Dr. Barksdale Initial pathology [place] 8 and 6 Initial therapy external beam radiation at [facility] 2019 with 2 years GnRH - Last GnRH 02/27 PSA - 02/27 0.05, 05/28 <0.05, 08/27 0.1 T 13 - 12/28 T 35 P <0.1, 04/28 <0.1 75, 08/28 <0.1 72, 11/28 T 83 LH 15 Therapeutic plan [facility] Medical History BPH (benign prostatic hyperplasia) Elevated PSA Essential hypertension Non-rheumatic mitral regurgitation Prostate cancer UTI (urinary tract infection) Surgical History H/O colonoscopy History of cardiac catheterization (~07/2020) History of esophagogastroduodenoscopy (EGD) Status post mitral valve repair Status post tricuspid valve repair Family History Other AA (alcohol abuse) HTN (hypertension) Social History Patient Tobacco Use Status: Never used Tobacco Review of Systems Const Denies chills and Denies fever(s) Card Reports no additional complaints and Denies syncope Resp Denies cough GI Denies abdominal pain and Denies heartburn Reports as per HPI and Denies change in libido Neuro Denies syncope Psych Denies change in libido Endo Denies change in libido Physical Exam Const General: cooperative, healthy appearing, comfortable and no acute distress Orientation/consciousness: patient oriented x3 HEENT Face and sinus: Yes normal facial exam Mouth: moist mucous membranes Neck Neck: Yes normal visual inspection, Yes full ROM and Yes trachea midline Chest Chest palpation & inspection: normal inspection of the chest Resp Effort & Inspection: normal respiratory effort, able to speak in complete sentences and no respiratory distress GI Inspection: Yes normal to inspection Back/Spine/Pelvis Cervical Spine: normal cervical lordosis Thoracic/Lumbar Spine: thoracic and lumbar spine normal to inspection Skin General skin exam: no rashes or lesions noted Neuro General: patient oriented x3, gait normal, tone normal and moves all extremities Extrem General: Yes normal to inspection and Yes capillary refill normal Office Procedures Post Void Residual Post Residual Void Post Void Residual (PVR): 0 [id number] Void Residual by ultrasound Assessment & Plan Assessment & Plan (1) Hypogonadism in male: Code(s): E29.1 - Testicular hypofunction (2) Prostate cancer: Comment: w/gold seed insertion 2018 - EXBRT + hormones Code(s): C61 - Malignant neoplasm of prostate (3) Erectile dysfunction after prostate brachytherapy: Code(s): N52.35 - Erectile dysfunction following radiation therapy Plan Six month follow-up Orders: Orders Prostate Specific Antigen 6 Months E29.1 - Testicular hypofunction Testosterone, Total 6 Months E29.1 - Testicular hypofunction Complete Blood Count no Diff 6 Months E29.1 - Testicular hypofunction AMB Urinalysis Automated Today Z13.9 - Encounter for screening, unspecified AMB Post Void Residual by ultrasound Today N40.0 - Benign prostatic hyperplasia without lower urinary tract symptoms Patient Instructions: Imaging studies, laboratory and physical exam results were discussed and reviewed in detail. No major barriers to patient understanding were identified. An opportunity to ask questions regarding the treatment plan was provided. All questions were answered. The patient expressed understanding and agreement with the above treatment plan. The patient is aware they should contact our office by phone for worsening of their current condition or the appearance of new urologic symptoms. Compliance is encouraged with any medications and followup testing that is ordered. It is a privilege to participate in the urologic care of your patient. If you have any questions or concerns regarding treatment for the above conditions, or other urologic issues, please do not hesitate to contact me. The office telephone contact is [phone]. This note is constructed using voice recognition software. While every effort has been made to ensure accuracy hall monitor errors may have been included. Yours sincerely, Dr Aden Pickett MD, [facility] - Urology Providers of Expert, Compassionate Care for the Genitourinary System Coding Level of Care Code Est Pt Level 4 (22969) Diagnoses Hypogonadism in male E29.1 Prostate cancer C61 Erectile dysfunction after prostate brachytherapy N52.35 CPT Codes Post Residual Void - PVR CPT Code: 63624-[id number] Void Residual by ultrasound ([id number])
== END 2022-08-17 11:42 | disposition home or self-care (01) ==
PROVIDERS: Visit Provider Urology
DX: E29.1 Testicular hypofunction (principal); C61 Malignant neoplasm of prostate; N52.35 Erectile dysfunction following radiation therapy
CPT/HCPCS: 99214

== ENCOUNTER → 2022-08-17 11:17 | Outpatient (BNVA) | payer BC, SELFPAY | PROVIDERS: Visit Provider Urology | DX: C61 Malignant neoplasm of prostate (principal); E29.1 Testicular hypofunction; N52.35 Erectile dysfunction following radiation therapy | CPT/HCPCS: 51798 ==

== ENCOUNTER → 2022-10-26 23:59 | Outpatient (BNV) | payer BC, SELFPAY ==
--- NOTE | 2022-10-28 13:16 | MHC.OFFVIS ---
Intake Intake Visit Reasons: Remote Device Check- Medtronic Allergies No Known Allergies [No Known Allergies*] Allergy (Verified 08/17/22 11:23) PFSH Medical History BPH (benign prostatic hyperplasia) Elevated PSA Essential hypertension Non-rheumatic mitral regurgitation Prostate cancer UTI (urinary tract infection) Surgical History H/O colonoscopy History of cardiac catheterization (~07/2020) History of esophagogastroduodenoscopy (EGD) Status post mitral valve repair Status post tricuspid valve repair Family History Other AA (alcohol abuse) HTN (hypertension) Social History Patient Tobacco Use Status: Never used Tobacco Office Procedures Cardiac Device Check Cardiac Device Check Details: Date of service- 10/26/2022 ; Battery life >10 years; normal lead parameters; AP 26%; 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 Overall normal device function. [id number] Cardiac Device Interrogation, pacemaker Procedure code (CPT) selection complete Assessment & Plan Assessment & Plan (1) Status post tricuspid valve repair: Code(s): Z98.890 - Other specified postprocedural states (2) Complete heart block: Code(s): I44.2 - Atrioventricular block, complete Coding Level of Care Code Procedure Only Diagnoses Status post tricuspid valve repair Z98.890 Complete heart block I44.2 CPT Codes Cardiac Device Check - Cardiac Device 12: [id number] Cardiac Device Interrogation, pacemaker ([id number])
== END ==
PROVIDERS: PCP Internal Medicine; Visit Provider Internal Medicine
DX: I44.2 Atrioventricular block, complete (principal); Z95.0 Presence of cardiac pacemaker
CPT/HCPCS: 93294

== ENCOUNTER 2022-11-02 08:27 | Outpatient (REF) | payer BC, SELFPAY ==
[2022-11-02 08:49] LABS: MANUAL DIFF FLAG NO
[2022-11-02 09:02] LABS: Basophils Absolute Auto 0.1 X10*3/uL (0.0-0.2); Basophils Percent Auto 1.2 % (0-2); Eosinophils Absolute Auto 0.3 X10*3/uL (0.0-0.4); Eosinophils Percent Auto 8.1 % (0-4); Hematocrit 41.5 % (42.0-52.0); Hemoglobin 13.2 g/dl (14.0-18.0); Imm Gran Abs Auto 0.01 X10*3/uL (0.00-0.03); Imm Gran Pct Auto 0.2 % (0.0-0.4); Lymphocytes Absolute Auto 1.4 X10*3/uL (1.2-4.9); Lymphocytes Percent Auto 32.5 % (20-40); Mean Corpuscular HGB Conc 31.8 g/dl (31.0-36.0); Mean Corpuscular Hemoglobin 28.4 pg (27.0-33.0); Mean Corpuscular Volume 89.2 fL (80.0-98.0); Mean Platelet Volume 9.8 fL (9.4-12.4); Monocytes Absolute Auto 0.4 X10*3/uL (0.1-1.2); Monocytes Percent Auto 10.2 % (2-11); Neutrophils Percent Auto 47.8 % (45-73); Platelet Count 242 X10*3/uL (160-400); Red Blood Count 4.65 X10*6/uL (4.60-5.80); Red Cell Distribution Width 16.3 % (11.0-16.0); White Blood Count 4.2 X10*3/uL (4.8-10.8)
[2022-11-02 09:40] LABS: Alanine Aminotransferase 13 U/L (0-40); Albumin Level 4.1 g/dL (3.5-5.0); Alkaline Phosphatase 76 U/L (39-117); Anion Gap 15 (12-20); Aspartate Amino Transferase 20 U/L (5-37); Bilirubin Total 0.3 mg/dL (0.0-1.0); Blood Urea Nitrogen 13 mg/dL (9-16); Calcium 9.4 mg/dL (8.4-10.2); Carbon Dioxide 27 mmol/L (22-29); Chloride 105 mmol/L (96-108); Estimated Glomerular Filt Rate > 60; Glucose Random 102 mg/dL (60-115); Potassium 4.7 mmol/L (3.3-5.1); Sodium 142 mmol/L (135-145); Total Protein 6.9 g/dL (6.5-8.0)
== END 2022-11-02 08:28 | disposition home or self-care (01) ==
LOC: HO.LAB 08:27
PROVIDERS: PCP Internal Medicine; Visit Provider Internal Medicine
DX: D64.9 Anemia, unspecified (principal); I10 Essential (primary) hypertension
CPT/HCPCS: 36415; 80053; 85025

== ENCOUNTER 2022-11-16 13:54 | Outpatient (AMB) | payer BC, SELFPAY ==
[2022-11-16 14:13] VITALS: BP 108/70; PULSE 60; BMI 18.5
--- NOTE | 2022-11-16 14:13 | MHC.OFFVIS ---
Intake Vital Signs 11/16/22 14:13 Height 6 ft 3 in Weight 148 lb 2.41 oz BMI 18.5 BP 108/70 Blood Pressure Location Lt brachial Position Sitting Pulse 60 Intake Visit Reasons: 1 year follow up w/ Medtr[employer] device check Intake Note: 1 year follow up w/ device check Machine Biller Required: No Accompanied by: Self / Same As Patient Allergies No Known Allergies [No Known Allergies*] Allergy (Verified 11/16/22 14:14) Medication List - Last Reconciled 11/16/22 by Duncan Noonan MD acyclovir 400 mg PO BID amlodipine 5 mg (1/2 x 10 mg) PO QAM 90 days aspirin 81 mg PO DAILY metoprolol tartrate 25 mg PO BID nitrofurantoin monohyd/m-cryst 100 mg (Macrobid) 100 mg PO BID 5 days tadalafil 5 mg PO DAILY 90 days tamsulosin 0.4 mg PO DAILY testosterone 2 pumps topical DAILY 28 days HPI HPI Comments History of Present Illness Details [place] returns for follow-up regarding mitral and tricuspid valve repair. Due to severe mitral regurgitation, he underwent surgical intervention for the same. Due to complete heart block perioperatively, he also underwent a permanent pacemaker implantation. Since last seen, generally doing good. With severe exertion, he may get short of breath and feel like heart is pounding but otherwise generally doing fine. Continues to work without issues. [facility] Medical History Essential hypertension Non-rheumatic mitral regurgitation UTI (urinary tract infection) Prostate cancer Elevated PSA BPH (benign prostatic hyperplasia) Surgical History (Updated 11/16/22 @ 14:16 by Nichole White) History of total right knee replacement Status post tricuspid valve repair Status post mitral valve repair History of cardiac catheterization (~07/2020) History of esophagogastroduodenoscopy (EGD) H/O colonoscopy Family History Other AA (alcohol abuse) HTN (hypertension) Social History Patient Tobacco Use Status: Never used Tobacco Review of Systems Const Denies weakness ENT Denies dizziness Card Denies chest pain, Denies chest pain with activity, Denies syncope, Denies rapid heart rate, Denies pedal edema, Denies edema, Denies leg edema, Denies lightheadedness, Denies palpitations, Denies dyspnea, Denies dyspnea on exertion and Denies orthopnea Resp Denies cough, Denies dyspnea and Denies dyspnea on exertion GI Denies hematochezia and Denies change in stool character Musc Denies abnormal gait, Denies muscle cramps, Denies muscle weakness, Denies numbness, Denies radiating pain into limb and Denies tingling Neuro Denies abnormal gait, Denies dizziness, Denies syncope, Denies numbness, Denies tingling and Denies weakness Endo Denies palpitations Physical Exam Vital Signs: Last Vital Signs Pulse 60 11/16/22 14:13 BP 108/70 11/16/22 14:13 BMI result Body Mass Index 18.5 Const General: comfortable and no acute distress Orientation/consciousness: patient oriented x3 HEENT Other: Unremarkable Head: Yes normal to inspection Neck Neck: Yes normal visual inspection Chest Chest palpation & inspection: normal inspection of the chest Resp Auscultation: clear to auscultation bilaterally Cardio Palpation: normal PMI Heart sounds: S1 normal heart sound present, S2 normal heart sound present, no gallops, no murmurs and no rubs GI Palpation (GI): Soft to palpation Back/Spine/Pelvis Other: unremarkable Skin General skin exam: no rashes or lesions noted Neuro General: patient oriented x3 Extrem General: Yes normal to inspection Psych Mental Status: mental status grossly normal Office Procedures Cardiac Device Check Cardiac Device Check Details: Pacemaker interrogated today. Dual-chamber device, programmed DDD mode. Battery status more than 10 years. Normal lead parameters. Atrial pacing 20%. Ventricular pacing 99%. Very brief atrial tachycardia episodes. Otherwise, no significant arrhythmias. Overall, normal device function. [id number] Cardiac Device Check, pacemaker dual lead Procedure code (CPT) selection complete EKG Details: EKG with dual-chamber, AV paced rhythm at 60/Min. 48880-[id number], Complete Assessment & Plan Assessment & Plan (1) Status post mitral valve repair: Code(s): Z98.890 - Other specified postprocedural states Plan: On the echocardiogram, mitral valve repair with normal valvular function. Preoperative catheterization shows normal coronaries. Infective endocarditis prophylaxis per protocol. (2) Status post tricuspid valve repair: Code(s): Z98.890 - Other specified postprocedural states Plan: On the echocardiogram, only trace regurgitation. Normal valve function. (3) Complete heart block: Code(s): I44.2 - Atrioventricular block, complete Plan: Status post pacemaker placement with normal function. (4) Essential hypertension: Code(s): I10 - Essential (primary) hypertension Plan: Stable. On amlodipine. Low-dose beta-blockers. Orders: Orders CA echo transthoracic complete 51 Weeks Z98.890 - Other specified postprocedural states Coding Level of Care Code Est Pt Level 4 (77444) Diagnoses Status post mitral valve repair Z98.890 Status post tricuspid valve repair Z98.890 Complete heart block I44.2 Essential hypertension I10 CPT Codes Cardiac Device Check - Cardiac Device 2: [id number] Cardiac Device Check, pacemaker dual lead ([id number]) EKG - CPT: 83707-Bbaiwokpesanikyff, Complete ([id number])
== END 2022-11-16 14:57 | disposition home or self-care (01) ==
PROVIDERS: PCP Internal Medicine; Visit Provider Internal Medicine
DX: I44.2 Atrioventricular block, complete (principal); I10 Essential (primary) hypertension; Z98.890 Other specified postprocedural states; Z95.0 Presence of cardiac pacemaker
CPT/HCPCS: 93280; 99214

== ENCOUNTER → 2022-11-16 13:54 | Outpatient (BNVA) | payer BC, SELFPAY | PROVIDERS: PCP Internal Medicine; Visit Provider Internal Medicine | DX: Z45.018 Encounter for adjustment and management of other part of cardiac pacemaker (principal); I10 Essential (primary) hypertension; I44.2 Atrioventricular block, complete | CPT/HCPCS: 93005; 93280 ==

== ENCOUNTER 2022-12-06 13:32 | Outpatient (REF) | payer BC, SELFPAY ==
[2022-12-06 16:52] LABS: Appearance Urine Cloudy; Color Urine Yellow; Glucose Urine UA Negative (Negative); Leukocyte Esterase Urine Moderate (2+) (Negative); Nitrite Urine Negative (Negative); PH 5.5 (5.0-9.0); Specific Gravity - Urine 1.025 (1.005-1.025); UMIC TRIGGER UA YES; Urine Blood Large (3+) (Negative); Urine Ketones Negative (Negative); Urine Protein 100 (2+) mg/dL (Neg-Trace)
[2022-12-06 17:06] LABS: Bacteria Urine None Seen (None Seen); Calcium Oxalate Crystals Urine Present; Hyaline Casts Urine 0-2 /LPF (0-2); RBC Urine >20 /HPF (0-2)
[2022-12-06 17:07] LABS: WBC Urine 21-50 /HPF (0-5)
== END 2022-12-06 13:33 | disposition home or self-care (01) ==
LOC: HO.LAB 13:32
PROVIDERS: PCP Internal Medicine; Visit Provider Urology
DX: N40.1 Benign prostatic hyperplasia with lower urinary tract symptoms (principal)
CPT/HCPCS: 81001; 87086; 87088; 87186

== ENCOUNTER → 2023-01-26 23:59 | Outpatient (BNV) | payer BC, SELFPAY ==
--- NOTE | 2023-01-27 12:54 | A.OFFVIS_ITS ---
Intake Intake Visit Reasons: Remote Device Check- [employer]tr[employer] Allergies No Known Allergies [No Known Allergies*] Allergy (Verified 11/16/22 14:14) [facility] Medical History Essential hypertension Non-rheumatic mitral regurgitation UTI (urinary tract infection) Prostate cancer Elevated PSA BPH (benign prostatic hyperplasia) Surgical History (Updated 11/16/22 @ 14:16 by Nichole White) History of total right knee replacement Status post tricuspid valve repair Status post mitral valve repair History of cardiac catheterization (~07/2020) History of esophagogastroduodenoscopy (EGD) H/O colonoscopy Family History Other AA (alcohol abuse) HTN (hypertension) Social History Patient Tobacco Use Status: Never used Tobacco Office Procedures Cardiac Device Check Cardiac Device Check Details: Date of service- 01/26/2023 ; Battery life >10 years; normal lead parameters; AP 25%; 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 Overall normal device function. [id number] Cardiac Device Interrogation, pacemaker Procedure code (CPT) selection complete Assessment & Plan Assessment & Plan (1) Complete heart block: Code(s): I44.2 - Atrioventricular block, complete Plan x Coding Level of Care Code Procedure Only Diagnoses Complete heart block I44.2 CPT Codes Cardiac Device Check - Cardiac Device 12: [id number] Cardiac Device Interrogation, pacemaker ([id number])
== END ==
PROVIDERS: PCP Internal Medicine; Visit Provider Internal Medicine
DX: I44.2 Atrioventricular block, complete (principal); Z95.0 Presence of cardiac pacemaker
CPT/HCPCS: 93294

== ENCOUNTER 2023-02-01 08:57 | Outpatient (REF) | payer BC, SELFPAY ==
[2023-02-01 09:07] LABS: MANUAL DIFF FLAG NO
[2023-02-01 09:29] LABS: Basophils Absolute Auto 0.1 X10*3/uL (0.0-0.2); Basophils Percent Auto 1.4 % (0-2); Eosinophils Absolute Auto 0.3 X10*3/uL (0.0-0.4); Eosinophils Percent Auto 6.7 % (0-4); Hematocrit 42.5 % (42.0-52.0); Imm Gran Abs Auto 0.01 X10*3/uL (0.00-0.03); Imm Gran Pct Auto 0.2 % (0.0-0.4); Lymphocytes Absolute Auto 1.5 X10*3/uL (1.2-4.9); Lymphocytes Percent Auto 36.1 % (20-40); Mean Corpuscular HGB Conc 32.9 g/dl (31.0-36.0); Mean Corpuscular Hemoglobin 28.3 pg (27.0-33.0); Mean Platelet Volume 9.6 fL (9.4-12.4); Monocytes Absolute Auto 0.5 X10*3/uL (0.1-1.2); Monocytes Percent Auto 12.3 % (2-11); Neutrophils Absolute Auto 1.8 x10*3/uL (2.0-8.3); Neutrophils Percent Auto 43.3 % (45-73); Platelet Count 272 X10*3/uL (160-400); Red Blood Count 4.94 X10*6/uL (4.60-5.80); Red Cell Distribution Width 15.4 % (11.0-16.0); White Blood Count 4.2 X10*3/uL (4.8-10.8)
[2023-02-01 09:30] LABS: Appearance Urine Clear; Color Urine Yellow; Glucose Urine UA Negative (Negative); Leukocyte Esterase Urine Negative (Negative); Nitrite Urine Negative (Negative); PH 6.5 (5.0-9.0); Urine Blood Negative (Negative); Urine Ketones Negative (Negative); Urine Protein Trace mg/dL (Neg-Trace)
[2023-02-01 09:50] LABS: Alanine Aminotransferase 12 U/L (0-40); Albumin Level 4.2 g/dL (3.5-5.0); Alkaline Phosphatase 70 U/L (39-117); Anion Gap 11 (12-20); Aspartate Amino Transferase 19 U/L (5-37); Bilirubin Total 0.3 mg/dL (0.0-1.0); Blood Urea Nitrogen 19 mg/dL (9-16); Calcium 9.7 mg/dL (8.4-10.2); Carbon Dioxide 31 mmol/L (22-29); Chloride 106 mmol/L (96-108); Cholesterol 181 mg/dL (<200); Estimated Glomerular Filt Rate > 60; Glucose Random 94 mg/dL (60-115); HDL Cholesterol 86 mg/dL (>40); LDL Cholesterol Calculated 85 mg/dL (<100); Potassium 4.3 mmol/L (3.3-5.1); Sodium 144 mmol/L (135-145); Total Protein 7.2 g/dL (6.5-8.0); Triglycerides 52 mg/dL (<150)
== END 2023-02-01 08:58 | disposition home or self-care (01) ==
LOC: HO.LAB 08:57
PROVIDERS: PCP Internal Medicine; Visit Provider Internal Medicine
DX: N40.0 Benign prostatic hyperplasia without lower urinary tract symptoms (principal); I12.9 Hypertensive chronic kidney disease with stage 1 through stage 4 chronic kidney disease, or unspecified chronic kidney disease; N18.9 Chronic kidney disease, unspecified; Z95.2 Presence of prosthetic heart valve
CPT/HCPCS: 36415; 80053; 80061; 81003; 85025

== ENCOUNTER 2023-02-09 13:19 | Outpatient (REF) | payer BC, SELFPAY ==
[2023-02-09 14:03] LABS: Hematocrit 41.6 % (42.0-52.0); Hemoglobin 13.5 g/dl (14.0-18.0); Mean Corpuscular HGB Conc 32.5 g/dl (31.0-36.0); Mean Corpuscular Hemoglobin 28.1 pg (27.0-33.0); Mean Corpuscular Volume 86.5 fL (80.0-98.0); Mean Platelet Volume 10.2 fL (9.4-12.4); Platelet Count 229 X10*3/uL (160-400); Red Blood Count 4.81 X10*6/uL (4.60-5.80); Red Cell Distribution Width 15.5 % (11.0-16.0); White Blood Count 4.8 X10*3/uL (4.8-10.8)
== END 2023-02-09 13:20 | disposition home or self-care (01) ==
LOC: HO.LAB 13:19
PROVIDERS: PCP Internal Medicine; Visit Provider Urology
DX: Z12.5 Encounter for screening for malignant neoplasm of prostate (principal); E29.1 Testicular hypofunction
CPT/HCPCS: 36415; 84153; 84403; 85027

== ENCOUNTER 2023-02-18 14:38 | Outpatient (AMB) | payer BC, SELFPAY ==
--- NOTE | 2023-02-18 14:47 | A.OFFVIS_ITS ---
Intake Intake Visit Reasons: cbc/psa/Testo(set) Intake Note: Patient is Present for Follow Up Urology Medication:Tamsulosin, Tadalafi, Testosterone Antibiotic Allergies: none Blood Thinners: aspirin Allergies No Known Allergies [No Known Allergies*] Allergy (Verified 02/18/23 14:49) Medication List - Last Reconciled 02/18/23 by Aden Pickett MD acyclovir 400 mg PO BID amlodipine 5 mg (1/2 x 10 mg) PO QAM 90 days aspirin 81 mg PO DAILY metoprolol tartrate 25 mg PO BID tadalafil 5 mg PO DAILY 90 days tamsulosin 0.4 mg PO DAILY testosterone 2 pumps topical DAILY 28 days HPI HPI Comments History of Present Illness Details [place] is a very pleasant male. He is a patient of Dr. Fay. He is seen for the following urologic conditions - prostate cancer - hot flashes Six-month follow-up hypogonadism Stability Continue current dosing Responds well to tadalafil Cardiac valve surgery for severe mitral regurg TKR Mar 2022 Erectile Dysfunction Tadalafil 5 mg Hypogonadism following EXBRT Had trial of clomiphene to restart testes - LH at 15 with minimal change in testosterone Labs - 01/28 T 897 P 0.24, 07/30 837 P 0.3, 323 P 0.15 42 Therapeutic history - good response to 4 pump topical testosterone 897, reduce to 3 pumps Therapy - topical therapy Prostate cancer high-grade external beam radiation 2019 2 years of hormones Prostate cancer was diagnosed by Dr. Barksdale Initial pathology [place] 8 and 6 Initial therapy external beam radiation at [facility] 2019 with 2 years GnRH - Last GnRH 02/27 PSA - 02/27 0.05, 05/28 <0.05, 08/27 0.1 T 13 - 12/28 T 35 P <0.1, 04/28 <0.1 75, 08/28 <0.1 72, 11/28 T 83 LH 15 Therapeutic plan [facility] Medical History Essential hypertension Non-rheumatic mitral regurgitation UTI (urinary tract infection) Prostate cancer Elevated PSA BPH (benign prostatic hyperplasia) Surgical History History of total right knee replacement Status post tricuspid valve repair Status post mitral valve repair History of cardiac catheterization (~07/2020) History of esophagogastroduodenoscopy (EGD) H/O colonoscopy Family History Other AA (alcohol abuse) HTN (hypertension) Social History Patient Tobacco Use Status: Never used Tobacco Review of Systems Const Denies chills and Denies fever(s) Card Reports no additional complaints and Denies syncope Resp Denies cough GI Denies abdominal pain and Denies heartburn Reports as per HPI and Denies change in libido Neuro Denies syncope Psych Denies change in libido Endo Denies change in libido Physical Exam Const General: cooperative, healthy appearing, comfortable and no acute distress Orientation/consciousness: patient oriented x3 HEENT Face and sinus: Yes normal facial exam Mouth: moist mucous membranes Neck Neck: Yes normal visual inspection, Yes full ROM and Yes trachea midline Chest Chest palpation & inspection: normal inspection of the chest Resp Effort & Inspection: normal respiratory effort, able to speak in complete sentences and no respiratory distress GI Inspection: Yes normal to inspection Back/Spine/Pelvis Cervical Spine: normal cervical lordosis Thoracic/Lumbar Spine: thoracic and lumbar spine normal to inspection Skin General skin exam: no rashes or lesions noted Neuro General: patient oriented x3, gait normal, tone normal and moves all extremities Extrem General: Yes normal to inspection and Yes capillary refill normal Assessment & Plan Assessment & Plan (1) Erectile dysfunction after prostate brachytherapy: Code(s): N52.35 - Erectile dysfunction following radiation therapy (2) Hypogonadism in male: Code(s): E29.1 - Testicular hypofunction Plan Six-month follow-up lab work Orders: Orders Testosterone, Total 6 Months E29.1 - Testicular hypofunction Complete Blood Count no Diff 6 Months E29.1 - Testicular hypofunction Prostate Specific Antigen 6 Months E29.1 - Testicular hypofunction Patient Instructions: Imaging studies, laboratory and physical exam results were discussed and reviewed in detail. No major barriers to patient understanding were identified. An opportunity to ask questions regarding the treatment plan was provided. All questions were answered. The patient expressed understanding and agreement with the above treatment plan. The patient is aware they should contact our office by phone for worsening of their current condition or the appearance of new urologic symptoms. Compliance is encouraged with any medications and followup testing that is ordered. It is a privilege to participate in the urologic care of your patient. If you have any questions or concerns regarding treatment for the above conditions, or other urologic issues, please do not hesitate to contact me. The office telephone contact is [phone]. This note is constructed using voice recognition software. While every effort has been made to ensure accuracy conventions assistant errors may have been included. Yours sincerely, Dr Aden Pickett MD, [facility] - Urology Providers of Expert, Compassionate Care for the Genitourinary System Coding Level of Care Code Est Pt Level 4 (89385) Diagnoses Erectile dysfunction after prostate brachytherapy N52.35 Hypogonadism in male E29.1
== END 2023-02-18 15:12 | disposition home or self-care (01) ==
PROVIDERS: PCP Internal Medicine; Visit Provider Urology
DX: N52.35 Erectile dysfunction following radiation therapy (principal); E29.1 Testicular hypofunction
CPT/HCPCS: 99213

== ENCOUNTER → 2023-02-18 14:38 | Outpatient (BNVA) | payer BC, SELFPAY | PROVIDERS: PCP Internal Medicine; Visit Provider Urology ==

== ENCOUNTER → 2023-04-27 23:59 | Outpatient (BNV) | payer BC, SELFPAY ==
--- NOTE | 2023-05-01 18:38 | A.OFFVIS_ITS ---
Intake Intake Visit Reasons: Remote Device Check- [employer]tr[employer] Allergies No Known Allergies [No Known Allergies*] Allergy (Verified 02/18/23 14:49) [facility] Medical History Essential hypertension Non-rheumatic mitral regurgitation UTI (urinary tract infection) Prostate cancer Elevated PSA BPH (benign prostatic hyperplasia) Surgical History History of total right knee replacement Status post tricuspid valve repair Status post mitral valve repair History of cardiac catheterization (~07/2020) History of esophagogastroduodenoscopy (EGD) H/O colonoscopy Family History Other AA (alcohol abuse) HTN (hypertension) Social History Patient Tobacco Use Status: Never used Tobacco Office Procedures Cardiac Device Check Cardiac Device Check Details: Date of service- 04/27/2023 ; Battery life >9 years; normal lead parameters; AP 23%; 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 1 sec episode of NSVT. Overall normal device function. [id number] Cardiac Device Interrogation, pacemaker Procedure code (CPT) selection complete Assessment & Plan Assessment & Plan (1) Complete heart block: Code(s): I44.2 - Atrioventricular block, complete Plan x Coding Level of Care Code Procedure Only Diagnoses Complete heart block I44.2 CPT Codes Cardiac Device Check - Cardiac Device 12: [id number] Cardiac Device Interrogation, pacemaker ([id number])
== END ==
PROVIDERS: PCP Internal Medicine; Visit Provider Internal Medicine
DX: I44.2 Atrioventricular block, complete (principal)
CPT/HCPCS: 93294

== ENCOUNTER 2023-07-14 14:11 | Outpatient (REF) | payer BC, SELFPAY ==
--- NOTE | ~2023-07-14 | XR_ITS ---
EXAMINATION: XR LUMBOSACRAL SPINE CLINICAL INFORMATION: Low back pain COMPARISON: CT scan abdomen and pelvis 02/19/2017 TECHNIQUE: Three views of the lumbosacral spine. FINDINGS: There 5 nonrib-bearing lumbar-type vertebral bodies. The height of vertebral bodies is well-maintained. There appears to be a developmental lack of fusion of the right L1 transverse process. There is severe disc space narrowing with subchondral sclerosis of the adjacent endplates, marginal osteophyte formation at L2-L3. There is also marked disc space narrowing at L3-L4. There is multilevel degenerative facet joint disease, marked at L5-S1. There is grade 1 anterolisthesis of L5 with respect to S1. XR/XR lumbar spine 2-3V IMPRESSION: 1. Degenerative disc disease at L2-L3 and L3-L4. 2. Multilevel degenerative facet joint disease. 3. Grade 1 anterolisthesis of L5 with respect to S1.
== END 2023-07-14 14:12 | disposition home or self-care (01) ==
LOC: HO.XRAY 14:11
PROVIDERS: PCP Internal Medicine; Visit Provider Internal Medicine
DX: M54.50 Low back pain, unspecified (principal)
CPT/HCPCS: 72100

== ENCOUNTER → 2023-07-27 23:59 | Outpatient (BNV) | payer BC, SELFPAY ==
--- NOTE | 2023-08-03 12:46 | MHC.OFFVIS ---
Intake Visit Reasons: Remote Device Check- [employer]tr[employer] Allergies No Known Allergies [No Known Allergies*] Allergy (Verified 02/18/23 14:49) [facility] Medical History Essential hypertension Non-rheumatic mitral regurgitation UTI (urinary tract infection) Prostate cancer Elevated PSA BPH (benign prostatic hyperplasia) Surgical History History of total right knee replacement Status post tricuspid valve repair Status post mitral valve repair History of cardiac catheterization (~07/2020) History of esophagogastroduodenoscopy (EGD) H/O colonoscopy Family History Other AA (alcohol abuse) HTN (hypertension) Social History Patient Tobacco Use Status: Never used Tobacco Office Procedures Cardiac Device Check Cardiac Device Check Details: Date of service- 07/27/2023 ; Battery life >9 years; normal lead parameters; AP 28%; 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 Overall normal device function. [id number] Cardiac Device Interrogation, pacemaker Procedure code (CPT) selection complete Assessment & Plan Assessment & Plan (1) Complete heart block: Code(s): I44.2 - Atrioventricular block, complete Category: Medical Plan x Coding Level of Care Code Procedure Only Diagnoses Complete heart block I44.2 CPT Codes Cardiac Device Check - Cardiac Device 12: [id number] Cardiac Device Interrogation, pacemaker ([id number])
== END ==
PROVIDERS: PCP Internal Medicine; Visit Provider Internal Medicine
DX: I44.2 Atrioventricular block, complete (principal); Z95.0 Presence of cardiac pacemaker
CPT/HCPCS: 93294

== ENCOUNTER 2023-08-19 07:21 | Day surgery (SDC) | payer BC, SELFPAY ==
--- NOTE | 2023-08-18 09:45 | HO.ANESPROP2 ---
Documented by User: Coco Valdez NP 08/18/23 09:52 HPI - Anesthesia Eval Consult details Narrative: 68yo M for Colonoscopy Follows [facility] cardiology s/p mitral and tricuspid valve repair 09/2020 Per cardiology note Due to severe mitral regurgitation, he underwent surgical intervention for the same. Due to complete heart block perioperatively, he also underwent a permanent pacemaker implantation. Last office visit 11/2022 - stable for 1 year routine f/u. [facility] Active Problems Active Problems: All Active Problems Erectile dysfunction after prostate brachytherapy (Acute) Hypogonadism in male (Acute) BPH loc w urin obs/LUTS (Acute) Complete heart block (Acute) Status post tricuspid valve repair (Acute) Status post mitral valve repair (Acute) Hot flash due to medication (Acute) Prostate cancer (Acute) BPH (benign prostatic hyperplasia) (Acute) Essential hypertension (Acute) Non-rheumatic mitral regurgitation (Acute) Past Medical History Medical History Essential hypertension Non-rheumatic mitral regurgitation UTI (urinary tract infection) Prostate cancer Elevated PSA BPH (benign prostatic hyperplasia) Family History Family History Other AA (alcohol abuse) HTN (hypertension) Family history of problems with anesthesia: No Surgical History Surgical History History of total right knee replacement Status post tricuspid valve repair (~2020) Status post mitral valve repair (~2020) History of cardiac catheterization (~07/2020) History of esophagogastroduodenoscopy (EGD) H/O colonoscopy History of Problems with Anesthesia: No Social History Social History Patient Tobacco Use Status: Never used Tobacco Meds Allergies Allergy/AdvReac Type Severity Reaction Status Date / Time No Known Allergies Allergy Verified 08/19/23 07:36 [No Known Allergies*] Home Medications ?Medication ?Instructions ?Recorded ?Confirmed ?Last Taken ?Type aspirin 81 mg tablet,delayed 81 mg PO DAILY 10/20/20 08/19/23 Unknown History release acyclovir 400 mg tablet 400 mg PO BID 01/20/21 08/19/23 Unknown History Exam Pertinent Lab Results Pertinent Lab Results: Laboratory Tests 02/01/23 02/09/23 09:06 13:35 WBC 4.8 Hgb 13.5 L Hct 41.6 L Plt Count 229 Sodium 144 Potassium 4.3 Chloride 106 Carbon Dioxide 31 H BUN 19 H Creatinine 0.86 Narrative Narrative: Cardiac Device Check (Remote) Details: Date of service- 07/27/2023 ; Battery life >9 years; normal lead parameters; AP 28%; INFORMATION SECURITY DIRECTOR 99%; no significant arrhythmias. Overall normal device function. Cardiac Device Check 11/2022 (In Office) Details: Pacemaker interrogated today. Dual-chamber device, programmed DDD mode. Battery status more than 10 years. Normal lead parameters. Atrial pacing 20%. Ventricular pacing 99%. Very brief atrial tachycardia episodes. Otherwise, no significant arrhythmias. Overall, normal device function. 70904-[id number] Cardiac Device Check, pacemaker dual lead Procedure code (CPT) selection complete EKG 11/2022 Details: EKG with dual-chamber, AV paced rhythm at 60/Min. ECHO 2021 Conclusions: - 1. Normal LV systolic function with pseudonormal filling pattern 2. Mitral valve repair appears intact 3. Normal RV systolic pressure 4. No gross pericardial effusion Assessment and Plan Assessment Anesthesia Assessment: Chart Reviewed Final Anesthetic Review Family History of Problems with Anesthesia: No History of Problems with Anesthesia: No Documented by User: Pao Luo MD 08/19/23 08:13 [facility] Past Medical History Medical History Essential hypertension Non-rheumatic mitral regurgitation UTI (urinary tract infection) Prostate cancer Elevated PSA BPH (benign prostatic hyperplasia) Family History Family History Other AA (alcohol abuse) HTN (hypertension) Family history of problems with anesthesia: No Surgical History Surgical History History of total right knee replacement Status post tricuspid valve repair (~2020) Status post mitral valve repair (~2020) History of cardiac catheterization (~07/2020) History of esophagogastroduodenoscopy (EGD) H/O colonoscopy History of Problems with Anesthesia: No Social History Social History Patient Tobacco Use Status: Never used Tobacco Meds Allergies Allergy/AdvReac Type Severity Reaction Status Date / Time No Known Allergies Allergy Verified 08/19/23 07:36 [No Known Allergies*] Home Medications ?Medication ?Instructions ?Recorded ?Confirmed ?Last Taken ?Type aspirin 81 mg tablet,delayed 81 mg PO DAILY 10/20/20 08/19/23 Unknown History release acyclovir 400 mg tablet 400 mg PO BID 01/20/21 08/19/23 Unknown History Exam Height,Weight and Vital Signs: Height 6 ft 3 in Weight 63.957 kg Vital Signs Temp Pulse Resp BP Pulse Ox O2 Del Method 08/19/23 07:43 97.0 F 60 18 125/71 96 Room Air Airway Mallampati Class: II TM Dist: >3cm Neck ROM: Full Loose/Missing/Broken Teeth: Yes (Molar extractions. Denies broken or loose teeth) Heart: RRR+ ?murmur Lungs: CTAB Assessment and Plan Assessment Anesthesia Assessment: Anesthesia Plan Discussed and Chart Reviewed Final Anesthetic Review Family History of Problems with Anesthesia: No History of Problems with Anesthesia: No NPO: Yes ASA Class: III Final Preanesthetic Review: No Changes in Pt Med Stat, Meds/Allgs Chart Reviewed, Consent Obtained/Reviewed and Anes Risks/Benef Reviewed Patient Risk: Intermediate Procedure Risk: Low Assessment/Block/Sedation in SS: Assess/Block/Sedation-SS Anesthetic Plan Anesthetic Plan: TIVA Disposition: Standard PACU
[2023-08-19 07:40] VITALS: BMI 17.6
[2023-08-19 07:43] VITALS: BP 125/71; PULSE 60; RESP 18; TEMP 36.1; O2SAT 96
[2023-08-19] MEDS: Lactated Ringers 1,000 ML 100 ML IVCONT (07:53)
--- NOTE | 2023-08-19 09:02 | PC.NURSE ---
24hr update documented on paper.
--- NOTE | 2023-08-19 09:23 | P.BOP_ITS ---
Brief Operative Note Date of Service: 08/19/23 Pre-op diagnosis: Screening Post-op diagnosis: other (Colon polyp) Procedure: Colonoscopy to the cecum with cold snare polypectomy Surgeon: Kenney Nelson MD Anesthesia: MAC Was an Stringed Instrument Repairer used for this Procedure?: No Estimated blood loss (mL): 2.0 Pathology: other (A. Polyp at 30cm) Condition: stable Disposition: PACU
[2023-08-19 09:24] VITALS: BP 98/49; PULSE 60; RESP 14; TEMP 36.2; O2SAT 100
[2023-08-19 09:29] VITALS: BP 105/65; PULSE 60; RESP 16; O2SAT 100
[2023-08-19 09:34] VITALS: BP 118/80; PULSE 60; RESP 16; O2SAT 96
[2023-08-19 09:42] VITALS: BP 117/75; PULSE 60; RESP 16; TEMP 36.1; O2SAT 98
--- NOTE | 2023-08-19 09:55 | OP_ITS ---
DATE OF SERVICE: 08/19/2023 SURGEON: Kenney Nelson MD INDICATIONS: The patient presents for evaluation of colorectal cancer screening and personal history of colon polyps. Full consent has been obtained from him for this, including risks of bleeding and perforation. PREOPERATIVE DIAGNOSIS: POSTOPERATIVE DIAGNOSIS: PROCEDURE PERFORMED: Colonoscopy to the cecum with cold snare polypectomy. ESTIMATED BLOOD LOSS: COMPLICATIONS: ANESTHESIA: Monitored anesthesia care. ASSISTANTS: SPECIMENS: PREOPERATIVE DIAGNOSES: Colorectal cancer screening and history of colon polyps. POSTOPERATIVE DIAGNOSES: Colorectal cancer screening, history of colon polyps, colon polyp, diverticulosis, internal hemorrhoids, and radiation changes of rectum with telangiectasias. DESCRIPTION OF PROCEDURE: The patient was placed in the left lateral decubitus position. The digital rectal exam revealed no abnormalities. The Olympus video pediatric colonoscope was then entered into the rectum and advanced easily to the cecum. Once in the cecum, I did identify normal-appearing cecal pouch with appendiceal orifice and a normal-appearing ileocecal valve. The entire cecum and ileocecal valve appeared normal. There was transillumination of light deep in the right lower quadrant. The scope was slowly withdrawn assessing all mucosal surfaces carefully. The preparation was excellent. At 30 cm, was an approximately 5 or 6 mm polyp, which was removed by cold snare polypectomy and recovered by suction. There was no sign of any residual polyp nor any significant bleeding. I did not visualize any sign of other polyps, colitis, nor angiodysplasias. There was a mild amount of sigmoid diverticulosis. In the rectum, scope was retroflexed, visualizing internal hemorrhoids as well as some telangiectasias and edema in relation to his previous radiation treatment. There was some friability of the mucosa. The scope was straightened and withdrawn from the patient. He tolerated the procedure well and was returned to the recovery area in stable condition. IMPRESSION: 1. Colon polyp. 2. Diverticulosis. 3. Internal hemorrhoids. 4. Radiation changes of rectum with associated telangiectasias and some friability. PLAN: The results of the pathology will be checked. I would recommend a repeat colonoscopy in 5 years. He was advised to resume his aspirin in 48 hours. MD CAYLA Wan/JOSH / [id number]
== END 2023-08-19 10:12 | disposition home or self-care (01) ==
PROVIDERS: PCP Internal Medicine; Visit Provider Internal Medicine
PROC: 0DJD8ZZ Inspection of Lower Intestinal Tract, Via Natural or Artificial Opening Endoscopic (ICD-10-PCS; CPT 45378; principal; 2023-08-19 08:30)
DX: Z12.11 Encounter for screening for malignant neoplasm of colon (principal); D12.5 Benign neoplasm of sigmoid colon; K57.30 Diverticulosis of large intestine without perforation or abscess without bleeding; K64.8 Other hemorrhoids; K62.7 Radiation proctitis; Z86.010 Personal history of colon polyps; I10 Essential (primary) hypertension; N52.35 Erectile dysfunction following radiation therapy; C61 Malignant neoplasm of prostate; Z95.2 Presence of prosthetic heart valve; Z87.440 Personal history of urinary (tract) infections; Z79.82 Long term (current) use of aspirin; Z79.899 Other long term (current) drug therapy
CPT/HCPCS: 45385; 88305; J2704

== ENCOUNTER 2023-09-19 09:48 | Outpatient (REF) | payer BC, SELFPAY ==
[2023-09-19 11:08] LABS: Hemoglobin 14.5 g/dl (14.0-18.0); Mean Corpuscular Hemoglobin 28.9 pg (27.0-33.0); Mean Corpuscular Volume 87.6 fL (80.0-98.0); Platelet Count 261 X10*3/uL (160-400); Red Blood Count 5.02 X10*6/uL (4.60-5.80); White Blood Count 3.7 X10*3/uL (4.8-10.8)
[2023-09-19 11:49] LABS: Alanine Aminotransferase 16 U/L (0-40); Albumin Level 4.3 g/dL (3.5-5.0); Alkaline Phosphatase 64 U/L (39-117); Anion Gap 13 (12-20); Aspartate Amino Transferase 20 U/L (5-37); Bilirubin Total 0.4 mg/dL (0.0-1.0); Blood Urea Nitrogen 21 mg/dL (9-16); Calcium 10.1 mg/dL (8.4-10.2); Carbon Dioxide 30 mmol/L (22-29); Chloride 108 mmol/L (96-108); Estimated Glomerular Filt Rate > 60; Glucose Random 82 mg/dL (60-115); Potassium 4.6 mmol/L (3.3-5.1); Sodium 146 mmol/L (135-145); Total Protein 7.3 g/dL (6.5-8.0)
[2023-09-19 12:10] LABS: Prostate Specific Antigen 0.17 ng/mL (<0.05-4.0)
[2023-09-24 14:08] LABS: Testosterone, Total 377 ng/dL (250-1100)
== END 2023-09-19 09:49 | disposition home or self-care (01) ==
LOC: HO.LAB 09:48
PROVIDERS: Absent Provider Internal Medicine; PCP Internal Medicine; Visit Provider Urology
DX: M19.90 Unspecified osteoarthritis, unspecified site (principal); Z12.5 Encounter for screening for malignant neoplasm of prostate; N40.0 Benign prostatic hyperplasia without lower urinary tract symptoms; R79.82 Elevated C-reactive protein (CRP)
CPT/HCPCS: 36415; 80053; 84153; 84403; 85027

== ENCOUNTER 2023-09-27 13:16 | Outpatient (REF) | payer BC, SELFPAY ==
[2023-09-27 14:13] LABS: Bacteria Urine None Seen (None Seen); Hyaline Casts Urine 0-2 /LPF (0-2); RBC Urine >20 /HPF (0-2); Squamous Epithelial Cell Urine 0-2 /HPF (0-2); WBC Urine >50 /HPF (0-5)
[2023-09-27 14:17] LABS: Appearance Urine Turbid; Glucose Urine UA Negative (Negative); Leukocyte Esterase Urine Moderate (2+) (Negative); Nitrite Urine Negative (Negative); Specific Gravity - Urine 1.025 (1.005-1.025); UMIC TRIGGER UA YES; Urine Blood Large (3+) (Negative); Urine Ketones Negative (Negative); Urine Protein 100 (2+) mg/dL (Neg-Trace)
[2023-09-27 14:19] LABS: Color Urine Yellow
== END 2023-09-27 13:17 | disposition home or self-care (01) ==
LOC: HO.LAB 13:16
PROVIDERS: PCP Internal Medicine; Visit Provider Urology
DX: N40.1 Benign prostatic hyperplasia with lower urinary tract symptoms (principal)
CPT/HCPCS: 81001; 87086; 87088; 87186

== ENCOUNTER 2023-09-27 14:57 | Outpatient (AMB) | payer BC, SELFPAY ==
--- NOTE | 2023-09-27 14:53 | MHC.OFFVIS ---
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 He is a patient of Dr. Fay. He is seen for the following urologic conditions - prostate cancer - hot flashes Telemedicine Evaluation 15 min Consultation [employer] Six-month follow-up hypogonadism Stability Continue current dosing Responds well to tadalafil Cardiac valve surgery for severe mitral regurg TKR Mar 2022 Erectile Dysfunction Tadalafil 5 mg Hypogonadism following EXBRT Testosterone stable Labs - 01/28 T 897 P 0.24, 07/30 837 P 0.3, 03/02 323 P 0.15 42, 09/30 T 377 PSA 0.17 Therapeutic history - good response to 4 pump topical testosterone 897, reduce to 2 pumps Therapy - topical therapy Prostate cancer high-grade external beam radiation 2019 2 years of hormones Prostate cancer was diagnosed by Dr. Barksdale Initial pathology [place] 8 and 6 Initial therapy external beam radiation at [facility] 2019 with 2 years GnRH - Last GnRH 02/27 PSA - 02/27 0.05, 05/28 <0.05, 08/27 0.1 T 13 - 12/28 T 35 P <0.1, 04/28 <0.1 75, 08/28 <0.1 72, 11/28 T 83 LH 15 Therapeutic plan [facility] Medical History Essential hypertension Non-rheumatic mitral regurgitation UTI (urinary tract infection) Prostate cancer Elevated PSA BPH (benign prostatic hyperplasia) Surgical History History of total right knee replacement Status post tricuspid valve repair (~2020) Status post mitral valve repair (~2020) History of cardiac catheterization (~07/2020) History of esophagogastroduodenoscopy (EGD) H/O colonoscopy Family History Other AA (alcohol abuse) HTN (hypertension) Social History Alcohol intake: current Alcohol intake frequency: holidays/special occasions only Patient Tobacco Use Status: Never used Tobacco Review of Systems Const All systems reviewed & are unremarkable except as noted in HPI and below Reports no additional complaints Resp Reports no additional complaints GI Reports no additional complaints Reports as per HPI Musc Reports no additional complaints Physical Exam Telemedicine evaluation Appropriate responses Regular breathing rate and rhythm HEENT Head: Yes normal to inspection Ears: hearing grossly normal bilaterally Eyes General: appearance normal, both eyes and all related structures Neck Neck: Yes normal visual inspection Chest Chest palpation & inspection: normal inspection of the chest Resp Effort & Inspection: normal respiratory effort and able to speak in complete sentences Telehealth Telehealth Location of provider rendering services: practice address Location of patient: address on file Patient Identification confirmed using: Name, : Yes Telehealth method: voice only Patient verbally consented to treatment: Yes Patient verbally consented to billing insurance company: Yes Patient informed of any privacy concerns related to visit: Yes Assessment & Plan Assessment & Plan (1) Prostate cancer: Comment: w/gold seed insertion 2019 - EXBRT + hormones Code(s): C61 - Malignant neoplasm of prostate Category: Medical (2) BPH loc w urin obs/LUTS: Code(s): N40.1 - Benign prostatic hyperplasia with lower urinary tract symptoms Category: Medical Plan Six-month follow-up Orders: Orders Testosterone, Total 6 Months E29.1 - Testicular hypofunction Complete Blood Count no Diff 6 Months E29.1 - Testicular hypofunction Prostate Specific Antigen 6 Months E29.1 - Testicular hypofunction Medications: New doxycycline hyclate 100 mg PO BID 28 tabs 0RF 14 days N40.1 - Benign prostatic hyperplasia with lower urinary tract symptoms, N45.1 - Epididymitis Changed From testosterone apply 2 pumps total and massage till dry 2 pumps topical DAILY 28 days 75 grams 5RF E29.1 - Testicular hypofunction To testosterone apply 2 pumps total and massage till dry 2 pumps topical DAILY 75 grams 5RF 28 days E29.1 - Testicular hypofunction Refilled tadalafil 5 mg PO DAILY 90 tabs 1RF sexual activity 90 days N52.35 - Erectile dysfunction following radiation therapy Patient Instructions: Imaging studies, laboratory and physical exam results were discussed and reviewed in detail. No major barriers to patient understanding were identified. An opportunity to ask questions regarding the treatment plan was provided. All questions were answered. The patient expressed understanding and agreement with the above treatment plan. The patient is aware they should contact our office by phone for worsening of their current condition or the appearance of new urologic symptoms. Compliance is encouraged with any medications and followup testing that is ordered. It is a privilege to participate in the urologic care of your patient. If you have any questions or concerns regarding treatment for the above conditions, or other urologic issues, please do not hesitate to contact me. The office telephone contact is [phone]. This note is constructed using voice recognition software. While every effort has been made to ensure accuracy fruit and vegetable parer errors may have been included. Yours sincerely, Dr Aden Pickett MD, [facility] - Urology Providers of Expert, Compassionate Care for the Genitourinary System Coding Level of Care Code Tele Est Pt Level 3 (00713) Diagnoses Prostate cancer C61 BPH loc w urin obs/LUTS N40.1
== END 2023-09-27 15:48 | disposition home or self-care (01) ==
LOC: HO.HUSH 14:57
PROVIDERS: PCP Internal Medicine; Visit Provider Urology
DX: C61 Malignant neoplasm of prostate (principal); N40.1 Benign prostatic hyperplasia with lower urinary tract symptoms
CPT/HCPCS: 99442

== ENCOUNTER 2023-10-18 14:05 | Outpatient (REF) | payer BC, SELFPAY ==
[2023-10-18 15:15] LABS: Appearance Urine Clear; Color Urine Yellow; Glucose Urine UA Negative (Negative); Leukocyte Esterase Urine Negative (Negative); Nitrite Urine Negative (Negative); PH 7.5 (5.0-9.0); Urine Blood Negative (Negative); Urine Ketones Negative (Negative); Urine Protein Negative (Neg-Trace)
[2023-10-18 15:21] LABS: Bacteria Urine None Seen (None Seen); Hyaline Casts Urine 0-2 /LPF (0-2); RBC Urine 0-2 /HPF (0-2); Squamous Epithelial Cell Urine 0-2 /HPF (0-2); WBC Urine 0-5 /HPF (0-5)
== END 2023-10-18 14:06 | disposition home or self-care (01) ==
LOC: HO.LAB 14:05
PROVIDERS: PCP Internal Medicine; Visit Provider Urology
DX: N40.1 Benign prostatic hyperplasia with lower urinary tract symptoms (principal); C61 Malignant neoplasm of prostate
CPT/HCPCS: 81001; 87086; 87088; 87186

== ENCOUNTER → 2023-10-27 23:59 | Outpatient (BNV) | payer BC, SELFPAY ==
--- NOTE | 2023-11-06 14:14 | MHC.OFFVIS ---
Intake Visit Reasons: Remote device check- Medtronic Allergies No Known Allergies [No Known Allergies*] Allergy (Verified 09/27/23 14:54) PFSH Medical History Essential hypertension Non-rheumatic mitral regurgitation UTI (urinary tract infection) Prostate cancer Elevated PSA BPH (benign prostatic hyperplasia) Surgical History History of total right knee replacement Status post tricuspid valve repair (~2020) Status post mitral valve repair (~2020) History of cardiac catheterization (~07/2020) History of esophagogastroduodenoscopy (EGD) H/O colonoscopy Family History Other AA (alcohol abuse) HTN (hypertension) Social History Patient Tobacco Use Status: Never used Tobacco Office Procedures Cardiac Device Check Cardiac Device Check Details: Date of service- 10/27/2023 ; Battery life >9 years; normal lead parameters; AP 30%; 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 Overall normal device function. [id number] Cardiac Device Interrogation, pacemaker Procedure code (CPT) selection complete Assessment & Plan Assessment & Plan (1) Pacemaker: Code(s): Z95.0 - Presence of cardiac pacemaker Category: Medical (2) Complete heart block: Code(s): I44.2 - Atrioventricular block, complete Category: Medical Plan x Coding Level of Care Code Procedure Only Diagnoses Pacemaker Z95.0 Complete heart block I44.2 CPT Codes Cardiac Device Check - Cardiac Device 12: [id number] Cardiac Device Interrogation, pacemaker ([id number])
== END ==
PROVIDERS: PCP Internal Medicine; Visit Provider Internal Medicine
DX: I44.2 Atrioventricular block, complete (principal); Z95.0 Presence of cardiac pacemaker
CPT/HCPCS: 93294

== ENCOUNTER → 2023-11-08 14:57 | Outpatient (REF) | payer BC, SELFPAY ==
--- NOTE | 2023-11-08 15:00 | CA_ITS ---
Transthoracic Echocardiogram Patient (Last, First, Middle): Chico Gustafson H Gender: Male Date of : 1955 Age: 68 Procedure Date: 11/08/2023 Procedure Type: Transthoracic Echocardiogram Location: OP Height: 187.96 cm Weight: 68.04 kg BSA: 1.92 m2 Heart Rate: bpm BP: 130 / 78 mmHg Vp [employer]: TO Referring MD: Duncan Noonan MD Symptoms: Z98.890 - Other specified postprocedural states Study Quality: Adequate ECG Rhythm: Sinus Conclusions: - The left ventricular systolic function is normal. The calculated ejection fraction is 61% by biplane method. - s/p mitral valve repair. Normal valvular function. Findings Left Ventricle Normal left ventricular cavity size. The left ventricular systolic function is normal. The calculated ejection fraction is 61% by biplane method. There is no evidence of regional wall motion abnormalities. Evidence suggests grade I (mild) diastolic dysfunction. There is mild septal asymmetric hypertrophy. Right Ventricle Moderately increased right ventricular cavity size. There is normal right ventricular systolic function. There is a pacemaker wire seen in the right ventricle. Atria The left atrium is mildly dilated. The right atrium is normal in size. Aortic Valve There is a normal trileaflet aortic valve. There is no aortic valve stenosis. There is no aortic valve regurgitation. Mitral Valve There is trace mitral valve regurgitation. There is no mitral valve stenosis. s/p mitral valve repair. Pulmonic Valve There is trace pulmonic valve regurgitation. Tricuspid Valve There is trace tricuspid valve regurgitation. There is no evidence of pulmonary hypertension. Great Vessels The asc aorta is normal in size. Venous The inferior vena cava is normal in size and collapses greater than 50% with inspiration. Pericardium/Pleural There is no evidence of pericardial effusion. Prior Study Comparison No significant change compared to prior study dated: 11/09/2021. Measurements 2D Linear Measurements IVSd: 1.05 0.6-0.9/0.6-1.0 cm LVIDd: 5.05 3.9-5.3/4.2-5.9 cm LVIDd Index: 2.63 2.4-3.2/2.2-3.1 cm/m2 LVIDs: 3.59 2.0-3.6 cm LVPWd: 0.71 0.7-1.1 cm LA Diam: 3.60 2.7-3.8/3.0-4.0 cm LAIDs Index: 1.88 1.5-2.3 cm/m2 LV Mass: 194.95 67-162/88-224 g LV Mass Index: 101.54 43-95/49-115 g/m2 LVOT Diam: 2.30 3.0+(-)1.3 cm 2D Systolic Function EF 4C: 60.50 >55% EF 2C: 56.50 >55% EF BiP: 60.70 >55% Mitral Valve MV VTI: 0.51 MV Pk Alexis: 1.49 MV Mn Alexis: 0.74 MV Pk Grad: 9.00 MV Mn Grad: 3.00 MV Pk E: 1.15 MV PK A: 1.24 MV Decel Time: 309.00 E/A: 0.90 E'Lateral: 7.40 E'Medial: 5.00 E/E' Med: 23.00 E/E' Lat: 15.50 PHT: 91.00 MVA PHT: 2.42 MVA Continuity: 1.82 Decel Starr: 3.73 Aortic Valve AoV Pk Alexis: 1.42 AoV Mn Aelxis: 0.93 AoV VTI: 0.32 AoV Pk Grad: 8.00 Aov Mn Grad: 4.00 LUIS Cont.VTI: 2.91 LVOT LVOT Pk Alexis: 1.14 LVOT Mn Alexis: 0.71 LVOT VTI: 0.22 LVOT Pk Grad: 5.00 LVOT Mn Grad: 2.00 LVOT Diam: 2.30 LVOT Area: 4.15 Diastolic Function MV Pk E: 1.15 MV Pk A: 1.24 E/A: 0.90 E'Medial: 5.00 E/E' Med: 23.00 E' Laterial: 7.40 E/E' Lat: 15.50 Right Ventricle TAPSE (mm): 16.30 TVS' Alexis: 12.10 Tricuspid Valve TV Pk Alexis: 1.11 TV Mn Alexis: 0.68 TV Pk Grad: 5.00 TV Mn Grad: 2.00 RA Press: 3.00 Great Vessels Aorta Sinus of Valsalva: 3.70 2.0-3.5 cm Ao Asc: 3.30 2.1-3.4 cm Updated in Other Vendor System with Status of Final Duncan Noonan MD electronically signed on 11/09/2023 12:24:46 PM with status of Final
== END ==
LOC: HO.CARD 14:57
PROVIDERS: PCP Internal Medicine; Visit Provider Internal Medicine
DX: Z98.890 Other specified postprocedural states (principal)
CPT/HCPCS: 93306

== ENCOUNTER → 2023-11-08 15:00 | Outpatient (BNV) | payer BC, SELFPAY | PROVIDERS: PCP Internal Medicine; Visit Provider Internal Medicine | DX: I42.2 Other hypertrophic cardiomyopathy (principal); Z98.890 Other specified postprocedural states | CPT/HCPCS: 93306 ==

== ENCOUNTER 2023-11-22 13:58 | Outpatient (AMB) | payer BC, SELFPAY ==
[2023-11-22 14:12] VITALS: BP 116/74; PULSE 60; BMI 18.1
--- NOTE | 2023-11-22 14:12 | MHC.OFFVIS ---
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 Due to severe mitral regurgitation, he underwent surgical intervention for the same. Due to complete heart block perioperatively, he also underwent a permanent pacemaker implantation. Overall, he states he feels fine. Continues to work. With severe exertion, he can get short of breath but has been like this for a long time. However, during daily activities no issues. No other concerns. [facility] Medical History Essential hypertension Non-rheumatic mitral regurgitation UTI (urinary tract infection) Prostate cancer Elevated PSA BPH (benign prostatic hyperplasia) Surgical History History of total right knee replacement Status post tricuspid valve repair (~2020) Status post mitral valve repair (~2020) History of cardiac catheterization (~07/2020) History of esophagogastroduodenoscopy (EGD) H/O colonoscopy Family History Other AA (alcohol abuse) HTN (hypertension) Social History Alcohol intake: current Alcohol intake frequency: holidays/special occasions only Patient Tobacco Use Status: Never used Tobacco Review of Systems Const Denies chills, Denies fatigue, Denies fever(s), Denies weight gain and Denies weight loss ENT Denies dizziness Card Denies chest pain, Denies leg edema, Denies lightheadedness, Denies palpitations, Reports dyspnea on exertion, Denies orthopnea and Denies other Resp Denies cough and Reports dyspnea on exertion GI Denies hematochezia and Denies change in stool character Musc Denies abnormal gait, Denies muscle weakness, Denies numbness, Denies radiating pain into limb and Denies tingling Neuro Denies abnormal gait, Denies dizziness, Denies numbness and Denies tingling Endo Denies fatigue and Denies palpitations Physical Exam Vital Signs: Last Vital Signs Pulse 60 11/22/23 14:12 BP 116/74 11/22/23 14:12 BMI result Body Mass Index 18.1 Const General: comfortable and no acute distress Orientation/consciousness: patient oriented x3 HEENT Other: Unremarkable Head: Yes normal to inspection Neck Neck: Yes normal visual inspection Chest Chest palpation & inspection: normal inspection of the chest Resp Auscultation: clear to auscultation bilaterally Cardio Palpation: normal PMI Heart sounds: S1 normal heart sound present, S2 normal heart sound present, no gallops, no murmurs and no rubs GI Palpation (GI): Soft to palpation Back/Spine/Pelvis Other: unremarkable Skin General skin exam: no rashes or lesions noted Neuro General: patient oriented x3 Extrem General: Yes normal to inspection Psych Mental Status: mental status grossly normal Office Procedures Cardiac Device Check Cardiac Device Check Details: Pacemaker interrogated today. Dual-chamber device, programmed DDD. Battery status 9.3 years. Normal lead parameters. Brief sinus/atrial tachycardia. Nothing persistent. Atrial pacing 26%. Ventricular pacing 99%. Overall, normal device function. [id number] Cardiac Device Check, pacemaker dual lead Procedure code (CPT) selection complete EKG Details: EKG with atrial sensed, ventricular paced rhythm at 60/Min. [id number], Complete Assessment & Plan Assessment & Plan (1) Status post mitral valve repair: Onset Date: ~2020 Code(s): Z98.890 - Other specified postprocedural states Category: Surgical Plan: On the echocardiogram, mitral valve repair with normal valvular function. Preoperative catheterization shows normal coronaries. Infective endocarditis prophylaxis per protocol. (2) Status post tricuspid valve repair: Onset Date: ~2020 Code(s): Z98.890 - Other specified postprocedural states Category: Surgical Plan: On the echocardiogram, normal valve function. (3) Complete heart block: Code(s): I44.2 - Atrioventricular block, complete Category: Medical Plan: Status post pacemaker placement with normal function. (4) Essential hypertension: Code(s): I10 - Essential (primary) hypertension Category: Medical Plan: Stable. On amlodipine. Low-dose beta-blockers. Coding Level of Care Code Est Pt Level 4 (67794) Diagnoses Status post mitral valve repair Z98.890 Status post tricuspid valve repair Z98.890 Complete heart block I44.2 Essential hypertension I10 CPT Codes Cardiac Device Check - Cardiac Device 2: [id number] Cardiac Device Check, pacemaker dual lead ([id number]) EKG - CPT: 57882-Izyaurtkyumseqnzw, Complete ([id number])
== END 2023-11-22 14:44 | disposition home or self-care (01) ==
PROVIDERS: PCP Internal Medicine; Visit Provider Internal Medicine
DX: I44.2 Atrioventricular block, complete (principal); I10 Essential (primary) hypertension; Z98.890 Other specified postprocedural states
CPT/HCPCS: 93010; 93280; 99214

== ENCOUNTER → 2023-11-22 13:58 | Outpatient (BNVA) | payer BC, SELFPAY | PROVIDERS: PCP Internal Medicine; Visit Provider Internal Medicine | DX: Z86.79 Personal history of other diseases of the circulatory system (principal); I10 Essential (primary) hypertension; Z79.899 Other long term (current) drug therapy; Z45.018 Encounter for adjustment and management of other part of cardiac pacemaker; Z98.890 Other specified postprocedural states | CPT/HCPCS: 93005; 93280 ==

== ENCOUNTER 2023-11-29 13:31 | Outpatient (REF) | payer BC, SELFPAY ==
[2023-11-29 14:50] LABS: Appearance Urine Cloudy; Color Urine Yellow; Glucose Urine UA Negative (Negative); Leukocyte Esterase Urine Large (3+) (Negative); Nitrite Urine Negative (Negative); PH 5.5 (5.0-9.0); Specific Gravity - Urine 1.025 (1.005-1.025); UMIC TRIGGER UA YES; Urine Blood Moderate (2+) (Negative); Urine Ketones Negative (Negative); Urine Protein 100 (2+) mg/dL (Neg-Trace)
[2023-11-29 14:56] LABS: Bacteria Urine 1+ (None Seen); Hyaline Casts Urine 0-2 /LPF (0-2); RBC Urine >20 /HPF (0-2); Squamous Epithelial Cell Urine 0-2 /HPF (0-2); WBC Urine >50 /HPF (0-5)
== END 2023-11-29 13:32 | disposition home or self-care (01) ==
LOC: HO.LAB 13:31
PROVIDERS: PCP Internal Medicine; Visit Provider Urology
DX: R39.9 Unspecified symptoms and signs involving the genitourinary system (principal); N40.1 Benign prostatic hyperplasia with lower urinary tract symptoms; R82.79 Other abnormal findings on microbiological examination of urine
CPT/HCPCS: 81001; 87086; 87088; 87186

== ENCOUNTER → 2024-01-26 23:59 | Outpatient (BNV) | payer BC, SELFPAY ==
--- NOTE | 2024-01-30 09:39 | A.OFFVIS_ITS ---
Intake Visit Reasons: Remote Device Check- [employer]tr[employer] Allergies No Known Allergies [No Known Allergies*] Allergy (Verified 09/27/23 14:54) PFS Medical History Essential hypertension Non-rheumatic mitral regurgitation UTI (urinary tract infection) Prostate cancer Elevated PSA BPH (benign prostatic hyperplasia) Surgical History History of total right knee replacement Status post tricuspid valve repair (~2020) Status post mitral valve repair (~2020) History of cardiac catheterization (~07/2020) History of esophagogastroduodenoscopy (EGD) H/O colonoscopy Family History Other AA (alcohol abuse) HTN (hypertension) Social History Alcohol intake: current Alcohol intake frequency: holidays/special occasions only Patient Tobacco Use Status: Never used Tobacco Office Procedures Cardiac Device Check Cardiac Device Check Details: Date of service- 01/26/2024 ; Battery life >9 years; normal lead parameters; AP 24%; 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 Overall normal device function. [id number] Cardiac Device Interrogation, pacemaker Procedure code (CPT) selection complete Assessment & Plan Assessment & Plan (1) Pacemaker: Code(s): Z95.0 - Presence of cardiac pacemaker Category: Medical (2) Complete heart block: Code(s): I44.2 - Atrioventricular block, complete Category: Medical Plan x Coding Level of Care Code Procedure Only Diagnoses Pacemaker Z95.0 Complete heart block I44.2 CPT Codes Cardiac Device Check - Cardiac Device 12: [id number] Cardiac Device Interrogation, pacemaker ([id number])
== END ==
PROVIDERS: PCP Internal Medicine; Visit Provider Internal Medicine
DX: I44.2 Atrioventricular block, complete (principal); Z95.0 Presence of cardiac pacemaker
CPT/HCPCS: 93294

== ENCOUNTER 2024-03-30 14:26 | Outpatient (REF) | payer BC, SELFPAY ==
[2024-03-30 16:05] LABS: Hematocrit 39.5 % (42.0-52.0); Hemoglobin 13.1 g/dl (14.0-18.0); Mean Corpuscular HGB Conc 33.2 g/dl (31.0-36.0); Mean Corpuscular Hemoglobin 28.7 pg (27.0-33.0); Mean Corpuscular Volume 86.4 fL (80.0-98.0); Mean Platelet Volume 10.1 fL (9.4-12.4); Platelet Count 228 X10*3/uL (160-400); Red Blood Count 4.57 X10*6/uL (4.60-5.80); Red Cell Distribution Width 15.9 % (11.0-16.0); White Blood Count 5.4 X10*3/uL (4.8-10.8)
[2024-03-30 17:02] LABS: Prostate Specific Antigen 0.22 ng/mL (<0.05-4.0)
[2024-04-05 12:54] LABS: Testosterone, Total 143 ng/dL (250-1100)
== END 2024-03-30 14:27 | disposition home or self-care (01) ==
LOC: HO.LAB 14:26
PROVIDERS: PCP Internal Medicine; Visit Provider Urology
DX: E29.1 Testicular hypofunction (principal); Z12.5 Encounter for screening for malignant neoplasm of prostate
CPT/HCPCS: 36415; 84153; 84403; 85027

== ENCOUNTER → 2024-04-26 23:59 | Outpatient (BNV) | payer BC, SELFPAY ==
--- NOTE | 2024-05-09 21:32 | MHC.OFFVIS ---
Intake Visit Reasons: Remote device check- [employer]tr[employer] Allergies No Known Allergies [No Known Allergies*] Allergy (Verified 03/30/24 14:48) PFSH Medical History Essential hypertension Non-rheumatic mitral regurgitation UTI (urinary tract infection) Prostate cancer Elevated PSA BPH (benign prostatic hyperplasia) Surgical History History of total right knee replacement Status post tricuspid valve repair (~2020) Status post mitral valve repair (~2020) History of cardiac catheterization (~07/2020) History of esophagogastroduodenoscopy (EGD) H/O colonoscopy Family History Other AA (alcohol abuse) HTN (hypertension) Social History Alcohol intake: current Alcohol intake frequency: holidays/special occasions only Patient Tobacco Use Status: Never used Tobacco Office Procedures Cardiac Device Check Cardiac Device Check Details: Date of service- 04/26/2024 ; Battery life >8 years; normal lead parameters; AP 40%; 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 Overall normal device function. [id number] Cardiac Device Interrogation, pacemaker Procedure code (CPT) selection complete Assessment & Plan Assessment & Plan (1) Pacemaker: Code(s): Z95.0 - Presence of cardiac pacemaker Category: Medical (2) Complete heart block: Code(s): I44.2 - Atrioventricular block, complete Category: Medical Plan x Coding Level of Care Code Procedure Only Diagnoses Pacemaker Z95.0 Complete heart block I44.2 CPT Codes Cardiac Device Check - Cardiac Device 12: [id number] Cardiac Device Interrogation, pacemaker ([id number])
== END ==
PROVIDERS: PCP Internal Medicine; Visit Provider Internal Medicine
DX: I44.2 Atrioventricular block, complete (principal); Z95.0 Presence of cardiac pacemaker
CPT/HCPCS: 93294

== ENCOUNTER 2024-05-11 14:39 | Outpatient (AMB) | payer BC, SELFPAY ==
--- NOTE | 2024-05-11 15:00 | A.OFFVIS_ITS ---
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 He is a patient of Dr. Fay. He is seen for the following urologic conditions - prostate cancer - hot flashes Six-month follow-up hypogonadism Stability Continue current dosing Responds well to tadalafil Cardiac valve surgery for severe mitral regurg TKR Mar 2022 Erectile Dysfunction Tadalafil 5 mg Hypogonadism following EXBRT Testosterone stable Labs - 01/28 T 897 P 0.24, 07/30 837 P 0.3, 03/02 323 P 0.15 42, 09/30 T 377 PSA 0.17, 04/03 0.22 143 Therapeutic history - good response to 4 pump topical testosterone 897, reduce to 2 pumps Therapy - topical therapy Prostate cancer high-grade external beam radiation 2019 2 years of hormones Prostate cancer was diagnosed by Dr. Barksdale Initial pathology [place] 8 and 6 Initial therapy external beam radiation at [facility] 2019 with 2 years GnRH - Last GnRH 02/27 PSA - 02/27 0.05, 05/28 <0.05, 08/27 0.1 T 13 - 12/28 T 35 P <0.1, 04/28 <0.1 75, 08/28 <0.1 72, 11/28 T 83 LH 15 Therapeutic plan PFSH Medical History Essential hypertension Non-rheumatic mitral regurgitation UTI (urinary tract infection) Prostate cancer Elevated PSA BPH (benign prostatic hyperplasia) Surgical History History of total right knee replacement Status post tricuspid valve repair (~2020) Status post mitral valve repair (~2020) History of cardiac catheterization (~07/2020) History of esophagogastroduodenoscopy (EGD) H/O colonoscopy Family History Other AA (alcohol abuse) HTN (hypertension) Social History Alcohol intake: current Alcohol intake frequency: holidays/special occasions only Patient Tobacco Use Status: Never used Tobacco Office Procedures Post Void Residual Post Residual Void Post Void Residual (PVR): 14 [id number] Void Residual by ultrasound Results AMB Urinalysis, Automated UA Leukoctes 125 Joan/uL Last Edit by MARIA G Kaiser on 05/11/24 16:33 UA Nitrite Negative Last Edit by MARIA G Kaiser on 05/11/24 16:33 UA Urobilinogen 0.2 mg/dL Last Edit by MARIA G Kaiser on 05/11/24 16:3 3 UA Protein 15 mg/dL Last Edit by MARIA G Kaiser on 05/11/24 16:33 UA pH 6.0 Last Edit by MARIA G Kaiser on 05/11/24 16:33 UA Blood 10 Paolo/uL Last Edit by MARIA G Kaiser on 05/11/24 16:33 UA Specific [place] 1.015 Last Edit by MARIA G Kaiser on 05/11/24 16: 33 UA Ketone Positive Last Edit by MARIA G Kaiser on 05/11/24 16:33 UA Bilirubin 0 mg/dL Last Edit by MARIA G Kaiser on 05/11/24 16:33 UA Glucose 0 mg/dL Last Edit by MARIA G Kaiser on 05/11/24 16:33 Results Reviewed Results Reviewed: Laboratory Last Values Urine pH (Auto) 6.0 05/11/24 16:33 Specific [place] (Auto) 1.015 05/11/24 16:33 Urine Protein (Auto) 15 mg/dL 05/11/24 16:33 Glucose (UA)(Auto) 0 mg/dL 05/11/24 16:33 Urine Ketones (Auto) Positive 05/11/24 16:33 Urine Blood (Auto) 10 Paolo/uL 05/11/24 16:33 Urine Nitrite (Auto) Negative 05/11/24 16:33 Urine Bilirubin (Auto) 0 mg/dL 05/11/24 16:33 Urine Urobilinogen (Auto) 0.2 mg/dL 05/11/24 16:33 Leukocyte Esterase (Auto) 125 Joan/uL 05/11/24 16:33 Assessment & Plan Assessment & Plan Orders: Orders Complete Blood Count no Diff 6 Months C61 - Malignant neoplasm of prostate Prostate Specific Antigen 6 Months C61 - Malignant neoplasm of prostate Testosterone, Total 6 Months C61 - Malignant neoplasm of prostate Coding CPT Codes Post Residual Void - PVR CPT Code: 57513-Lbcs Void Residual by ultrasound ([id number])
--- OUTSIDE RECORDS SUMMARY | 2024-05-11 16:12 | XMS_ITS ---
Author Organization [facility] Address [address] [place] [address] Care Team Providers Care Tin Roofer Name Role Phone Mathew Fay MD Primary Care Provider Huey alonso Nelson Kenney Unavailable [phone] Allergies No Known Allergies REASON FOR VISIT Patient presents today for a COLON SCREENING Medications Medication SIG (Take, Route, Frequency, Duration) Notes Start Date End Date Status Diclofenac Sodium 1 % External for 30 Active amLODIPine Besylate 5 MG Oral for 90 Active Aspirin 81 81 MG 1 tablet Orally Once a day for 30 day(s) Active Testosterone 1.62 % Transdermal for 30 Active Gabapentin 300 MG Oral for 90 Active Tamsulosin HCl 0.4 MG TAKE 1 CAPSULE BY MOUTH DAILY. Oral for 90 Active Tadalafil 5 MG TAKE ONE TABLET BY M OUTH EVERY DAY FOR SEXUAL ACTIVITY Oral for 90 Active Metoprolol Tartrate 25 MG TAKE ONE TABLE T BY MOUTH TWICE A DAY. PLEASE KEEP YOUR APPOINTMENT ON 11/16/[address] DAY AT [facility] Oral for 90 Active Social History Tobacco Use: Social History Observation Description Date Details (start date - stop date) Never Smoker NA - NA Tobacco Use/Smoking Question Answer Notes Patient is a nonsmoker Alcohol Screen Question Answer Notes Did you have a drink contain ing alcohol in the past year? Yes How often did you have a dri nk containing alcohol in the past year? 2 to 4 times a month (2 points) How many drinks did you have on a typical day when you were drinking in the past year? 3 or 4 drinks (1 point) How often did you have 6 or more drinks on one occasion in the past year? Never (0 point) Points 3 Interpretation Negative Section Notes: Nonsmoker; no sig. alcohol Problems Problem Type SNOMED Code ICD Code Onset Dates Problem Status W/U Status Risk Notes Problem Colon cancer screening (667413645) Colon cancer screening (Z12.11) Active confirmed Problem Pre-procedure evaluation check (102289175) Encounter for other preprocedural examination (Z01.818) Active confirmed Problem History of polyp of colon (096423585) History of colon polyps (Z86.010) Active confirmed Vital Signs Temperature 98.7 degrees Fahrenheit 04/29/19 24 Blood pressure systolic 000 mm Hg 04/29/19 24 Blood pressure diastolic 00 mm Hg 024 Height 6 ft 3 in in 04/29/2023 Weight 144 lb 4 oz lbs 04/29/2023 BMI 18.03 kg/m2 04/29/2023 Encounters Encounter Location Date Provider Diagnosis [facility] [address] [place] [address] 04/29/2023 Kenney Nelson Colon cancer screeni ng Z12.11 ; Encounter for other preprocedural examination Z01.818 and History of colon polyps Z86.010 Assessments Encounter Date Diagnosis (ICD Code) Assessment Notes Treatment Notes Treatment Clinical Notes Section Notes 04/29/2023 Colon cancer screening (ICD-10 - Z12.11) Do not use aspirin on the day of the colonoscopy Do not use the Diclofenac gel for 1 week before the colonoscopy Overall, Salty appears well. Given his history of a colon polyp removed 5 years ago and his good clinical appearance, I did recommend a followup colonoscopy for further screening and surveillance purposes. We did review the rationale for that in regard to colon cancer prevention. Full consent is obtained for this, including risks of bleeding and perforation. The procedure will be done with monitored anesthesia care. He was advised not to use any aspirin on the morning of the procedure and to avoid any NSAIDs for one week before the exam. Salty was comfortable with this plan. Thank you again for allowing me to participate in Salty's care. I shall continue to keep you advised of his progress. 04/29/2023 Encounter for other preprocedural examination (ICD-10 - Z01.818) Overall, Salty appears well. Given his history of a colon polyp removed 5 years ago and his good clinical appearance, I did recommend a followup colonoscopy for further screening and surveillance purposes. We did review the rationale for that in regard to colon cancer prevention. Full consent is obtained for this, including risks of bleeding and perforation. The procedure will be done with monitored anesthesia care. He was advised not to use any aspirin on the morning of the procedure and to avoid any NSAIDs for one week before the exam. Salty was comfortable with this plan. Thank you again for allowing me to participate in Salty's care. I shall continue to keep you advised of his progress. 04/29/2023 History of colon polyps (ICD-10 - Z86.010) Overall, Salty appears well. Given his history of a colon polyp removed 5 years ago and his good clinical appearance, I did recommend a followup colonoscopy for further screening and surveillance purposes. We did review the rationale for that in regard to colon cancer prevention. Full consent is obtained for this, including risks of bleeding and perforation. The procedure will be done with monitored anesthesia care. He was advised not to use any aspirin on the morning of the procedure and to avoid any NSAIDs for one week before the exam. Salty was comfortable with this plan. Thank you again for allowing me to participate in Salty's care. I shall continue to keep you advised of his progress. Plan Of Treatment Treatment Notes Assessment Notes Colon cancer screening Do not use aspirin on the day of the colonoscopy Do not use the Diclofenac gel for 1 week before the colonoscopy Future Test Test Name Order Date COLONOSCOPY 04/29/2023 Next Appt Details Follow Up: prn, Reason: Progress Notes * SALTY CASTANEDA HDOB:[birth year] (67 yo M)Acc No.[id number]:04/29/2023 Progress Notes Patient:?SALTY CASTANEDA Provider:?Kenney Nelson MD :1955???Age:67 Y???Sex:Male Danny e:04/29/2023 Address:[address] [place], [place] [id number] Pcp:Mathew Fay MD Subjective: * Chief Complaints: * ???Patient presents today fo r a COLON SCREENING * HPI: ???incontinence:? I saw Salty in the office today for evaluation of his reported history of a colon polyp and discussion of colorectal cancer screening. ?As you know, Salty is a 67-year-old male who presently feels well. He enjoys a good appetite, without any significant heartburn or dysphagia. His bowel movements are regular without any signs of bleeding. He denies any abdominal pain, jaundice, nor unintentional weight loss. He denies any known family history of colon cancer. ?He did have a colonoscopy at approximately age 62 with removal of a polyp by Dr. Colon. He was told to have a repeat exam in 5 years. I had met him back in 2018 when he was hospitalized for some abdominal pain. An upper endoscopy at that time revealed some mild gastritis and biopsies negative for H. pylori. * ROS:?General/Constitutional:?Change in appetite?denies.?Chills?denies.?Fatigue?denies.?Ophthalmologic:?Comments?all negative.?ENT:?Comments?all negative.?Respiratory:?hemoptysis?denies.?Cough?denies.?Cardiovascular:?Chest pain?denies.?Orthopnea?denies.?Gastrointestinal:?Comments?See HPI for details.?Genitourinary:?Hematuria?denies.?Dysuria?denies.?Musculoskeletal:?Painful joints?denies.?Weakness?denies.?Skin:?Itching?denies.?Rash?denies.?Neurologic:?Headache?denies.?Seizures?denies.?Psychiatric:?Comments?all negative.? * Medical History:? * Surgical History:?Knee repla cement on the right acemaker[facility] 2020Mitral and (?)aortic valve repair-[facility] 2020 * Hospitalization/Major Diagno stic Procedure:?No Hospitalization History. * Family History:?Father: dece ased.?Mother: alive.? No family history of colon cancer or liver cancer. * Social History:?Tobacco Use:?Tobacco Use/Smoking?Patient is a?nonsmoker.?Drugs/Alcohol:?Alcohol Screen?Did you have a drink containing alcohol in the past year??Yes,?How often did you have a drink containing alcohol in the past year??2 to 4 times a month (2 points),?How many drinks did you have on a typical day when you were drinking in the past year??3 or 4 drinks (1 point),?How often did you have 6 or more drinks on one occasion in the past year??Never (0 point),?Points?3,?Interpretation?Negative.?Miscellaneous:?Marital status: . 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 ???Nonsmoker; no sig. alcohol. * Medications:?TakingAspirin 8 1 81 MG Tablet Delayed Release 1 tablet Orally Once a dayamLODIPine Besylate 5 MG Tablet Oral Diclofenac Sodium 1 % Gel External Tamsulosin HCl 0.4 MG Capsule TAKE 1 CAPSULE BY MOUTH DAILY. Oral Metoprolol Tartrate 25 MG Tablet TAKE ONE TABLET BY MOUTH TWICE A DAY. PLEASE KEEP YOUR APPOINTMENT ON 11/16/[address] DAY AT [facility] Oral Tadalafil 5 MG Tablet TAKE ONE TABLET BY MOUTH EVERY DAY FOR SEXUAL ACTIVITY Oral Testosterone 1.62 % Gel Transdermal Gabapentin 300 MG Capsule Oral Medication List reviewed and reconciled with the patientTaking Aspirin 81 81 MG Tablet Delayed Release 1 tablet Orally Once a dayTaking amLODIPine Besylate 5 MG Tablet Oral Taking Diclofenac Sodium 1 % Gel External Taking Tamsulosin HCl 0.4 MG Capsule TAKE 1 CAPSULE BY MOUTH DAILY. Oral Taking Metoprolol Tartrate 25 MG Tablet TAKE ONE TABLET BY MOUTH TWICE A DAY. PLEASE KEEP YOUR APPOINTMENT ON 11/16/[address] DAY AT [facility] Oral Taking Tadalafil 5 MG Tablet TAKE ONE TABLET BY MOUTH EVERY DAY FOR SEXUAL ACTIVITY Oral Taking Testosterone 1.62 % Gel Transdermal Taking Gabapentin 300 MG Capsule Oral Medication List reviewed and reconciled with the patient * Allergies:?N.K.D.A.yes[Aller gies Verified] Objective: * Vitals:?Wt: 144 lb 4 oz, Ht: 6 ft 3 in, BMI:18.03 Index, BP: 000/00 mm Hg, Temp: 98.7. * Examination: ???General Examination: ?GENERAL APPEARANCE:?pleasant, well nourished, well developed, in no acute distress.?EYES:?sclera non-icteric.?ORAL CAVITY:?mucosa moist.?NECK/THYROID:?no cervical lymphadenopathy, neck supple.?SKIN:?nonjaundiced, no spider angiomata.?HEART:?S1, S2 normal.?LUNGS:?clear to auscultation bilaterally.?ABDOMEN:?normal bowel sounds, no guarding or rigidity, no guarding or rigidity, no masses palpable, soft, nontender, nondistended.?EXTREMITIES:?no edema.?NEUROLOGIC:?alert and oriented.? Assessment: * Assessment: 1.?Encounter for other prepr ocedural examination - Z01.818 (Primary)?2.?Colon cancer screening - Z12.11?3.?History of colon polyps - Z86.010? Overall, Salty appears well. Given his history of a colon polyp removed 5 years ago and his good clinical appearance, I did recommend a followup colonoscopy for further screening and surveillance purposes. We did review the rationale for that in regard to colon cancer prevention. Full consent is obtained for this, including risks of bleeding and perforation. The procedure will be done with monitored anesthesia care. He was advised not to use any aspirin on the morning of the procedure and to avoid any NSAIDs for one week before the exam. Salty was comfortable with this plan. Thank you again for allowing me to participate in Salty's care. I shall continue to keep you advised of his progress. Plan: * Treatment: Notes: Do not use aspirin on the day of the colonoscopy Do not use the Diclofenac gel for 1 week before the colonoscopy??2.?History of colon polyps?Procedure: COLONOSCOPY (Ordered for 04/29/2023)* with MAC sched for 08/19/23 a t 8:40 am miralax * Procedure Codes:?3017F COLOR ECTAL CA SCREEN DOC [id number] TOBACCO NON-BTUMJ1954 BP SCR NOT PRFRM REC REASON NOS * Preventive Medicine:? ??Counseling:?Care goal follow-up plan:?Above Normal BMI Follow-up?Giving encouragement to exercise,?BMI management provided?Yes.? * Follow Up:?prn * * Sign off status: Completed true * Provider:?Kenney Nelson MD Date:? 024 Generated for Cornelli orlando/Rocio/eTransmitting on:?05/11/2024 04:12 PM EDT History and Physical Notes * HPI (History of Present Illness) Category Sub-Category Detail Notes Category Not es incontinence I saw Salty in the office today for evaluation of his reported history of a colon polyp and discussion of colorectal cancer screening. As you know, Salty is a 67-year-old male who presently feels well. He enjoys a good appetite, without any significant heartburn or dysphagia. His bowel movements are regular without any signs of bleeding. He denies any abdominal pain, jaundice, nor unintentional weight loss. He denies any known family history of colon cancer. He did have a colonoscopy at approximately age 62 with removal of a polyp by Dr. Colon. He was told to have a repeat exam in 5 years. I had met him back in 2018 when he was hospitalized for some abdominal pain. An upper endoscopy at that time revealed some mild gastritis and biopsies negative for H. pylori. Examination Category Sub-Category Detail Notes Category Not es General Examination GENERAL APPEARANCE: pleasant , well nourished, well developed, in no acute distress HEAD: EYES: sclera non-icteric EARS: NOSE: THROAT: NECK/THYROID: no cervical lymphade nopathy, neck supple HEART: S1, S2 normal CHEST: LUNGS: clear to auscultatio n bilaterally ABDOMEN: normal bowel sounds, no guarding or rigidity, no guarding or rigidity, no masses palpable, soft, nontender, nondistended NEUROLOGIC: alert and oriented SKIN: nonjaundiced, no spi isaac angiomata EXTREMITIES: no edema PERIPHERAL PULSES: BACK: BREASTS: MUSCULOSKELETAL: MALE GENITOURINARY: LYMPH NODES: RECTAL EXAM: FEMALE GENITOURINARY: ORAL CAVITY: mucosa moist
--- OUTSIDE RECORDS SUMMARY | 2024-05-11 16:13 | XMS_ITS | Patient Health Record ---
Author Organization [facility] Address [address] [place] [address] Care Team Providers Care Scheduling Analyst Name Role Phone Nya OROURKE, Mathew Primary Care Provider Kenney De La Cruz Unavailable [phone] Allergies No Known Allergies Results Component Value Reference Range Notes Pathology (Not yet reviewed by provider) Interpretation: Performing Lab:[facility], [address] [place] [phone] Notes/Report: Name: Salty Gustafson Age/Sex: 68/M : 1955 Unit#: [id number] Attend Dr: Kenney Nelson MD Re08/19/23 Status : [facility] Location: [facility] Disch: SPEC : [id number] RECD : 08/19/23 STATUS: MARYANNE JARRETT NUM: [id number] LINDA: 08/19/[address] [facility] DR: Kenney Nelson MD ENTERED: 08/19/23 SP TYPE: Surgical OTHR DR: Mathew Fay MD ORDERED: HE Stain/3, Gross Micro L4 Diagnosis Colon, at 30 cm, laura yp: Tubular adenoma; negative for high-grade dysplasia and carcinoma. Clinical History Pre-Op Dx: Screening Post-Op Dx: Colon po lyp, diverticulosis, hemorrhoids, radiation proctitis Microscopic Description Microscopic sections reviewed. Material Received Polyp @ 30 cm Gross Description Received in formalin is 1 regalado 4 mm soft tissue fragment, totally submitted in cassette A1. (EBER) Copies To: Mathew Fay MD [facility] [address] [place] [address] Drive [address] [place], [place] [phone] Kenney Nelson MD [facility] [address] [place] [address] Signed (si gnature on file) Thelma Cottrell 08/22/23 1525 END OF REPORT Reason For Referral No Information Medications Medication SIG (Take, Route, Frequency, Duration) Notes Start Date End Date Status Tamsulosin HCl 0.4 MG TAKE 1 CAPSULE BY MOUTH DAILY. Oral for 90 Active Diclofenac Sodium 1 % External for 30 Active amLODIPine Besylate 5 MG Oral for 90 Active Aspirin 81 81 MG 1 tablet Orally Once a day for 30 day(s) Active Testosterone 1.62 % Transdermal for 30 Active Tadalafil 5 MG TAKE ONE TABLET BY M OUTH EVERY DAY FOR SEXUAL ACTIVITY Oral for 90 Active Metoprolol Tartrate 25 MG TAKE ONE TABLE T BY MOUTH TWICE A DAY. PLEASE KEEP YOUR APPOINTMENT ON 11/16/[address] DAY AT [facility] Oral for 90 Active Gabapentin 300 MG Oral for 90 Active Immunizations Vaccine Route Administration Date Status Comme nts Influenza Unknown 12/28/2022 Administered Social History Tobacco Use: Social History Observation [...] Status Risk Notes Problem Colon cancer screening (869025286) Colon cancer screening (Z12.11) Active confirmed Problem Pre-procedure evaluation check (308651866) Encounter for other preprocedural examination (Z01.818) Active confirmed Problem Diverticular disease of colon (676648970) Diverticulosis of large intestine without perforation or abscess without bleeding (K57.30) Active confirmed Problem History of polyp of colon (394059592) History of colon polyps (Z86.010) Active confirmed Encounters Encounter Location Date Provider Diagnosis [facility] [place] [address] [place] [phone] 08/19/2023 Kenney Nelson Encounter for scre ening [...] hemorrhoids (ICD-10 - K64.8) Plan Of Treatment Pending Test Test Name Order Date Pathology 08/19/2023 Future Test Test Name Order Date COLONOSCOPY 04/29/2023 Insurance Providers Payer Name Payer Address Payer Phone Subscriber Number Group Number Insured Name Patient Relationship to Insured Coverage Start Date Coverage End Date [facility] [employer] PROFESSIONAL CLAIMS [address] [place] [address] [phone] [id number] SALTY GUSTAFSON Self - patient is the insured Medical (General) History Medical History History ICD Code HTN Pacemaker Prostate cancer-XRT--2018 Denies [place],DM,CVA,Lung disease,renal dise ase BPH Colonoscopy in approx [address] George is with removal of polyp Arthritis EGD [place] [address] Stiles d revealed some mild gastritis with biopsies negative for H. pylori Urosepsis in 2018 Surgical History Surgery Date(Month/Year) Knee replacement on the right 2021 Pacemaker-[facility] 2020 Mitral and (?)aortic valve repair-[facility] 2020
--- OUTSIDE RECORDS SUMMARY | 2024-05-11 16:13 | XMS_ITS ---
Author Organization [facility] Address [address] [place] [address] Care Team Providers Care Golf Course Ranger Name Role Phone Mathew Fay MD Primary Care Provider Kenney De La Cruz Unavailable [phone] REASON FOR VISIT screening Problems Problem Type SNOMED Code ICD Code Onset Dates Problem Status W/U Status Risk Notes Problem Diverticular disease of colon (416911782) Diverticulosis of large intestine without perforation or abscess without bleeding (K57.30) Active confirmed Encounters Encounter Location Date Provider Diagnosis [facility] Out[place] [address] [place] [phone] 08/19/2023 Kenney Nelson Encounter for scre ening [...] Progress Notes * SALTY CASTANEDA HDOB:[birth year] (68 yo M)Acc No.[id number]:08/19/2023 COLON WITH MAC Patient:?SALTY CASTANEDA Provider:?Kenney Nelson MD :1955???Age:68 Y???Sex:Male Danny e:08/19/2023 Address:[address] [place], [place] [phone] Pcp:Mathew Fay MD Subjective: * Chief Complaints: * ???1. Screening. * Medical History:? Objective: * Vitals:? 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 Other hemorrhoids - K64.8??? Plan: * Treatment: * Procedure Codes:?06246 LESIO N REMOVAL COLONOSCOPY, Modifiers: PT * * The named appointment provid er may or may not be the originator of this progress note, and it is not deemed complete until electronically signed by the appointment provider. Sign off status: Pending * Provider:?Kenney Nelson MD Date:? 024 Generated for Adrianna perry/Rocio/Janeensmitting on:?05/11/2024 04:12 PM EDT
== END 2024-05-11 15:49 | disposition home or self-care (01) ==
LOC: HO.HUSH 14:39
PROVIDERS: PCP Internal Medicine; Visit Provider Urology
DX: Z13.9 Encounter for screening, unspecified (principal)

== ENCOUNTER → 2024-05-11 14:39 | Outpatient (BNVA) | payer BC, SELFPAY | PROVIDERS: PCP Internal Medicine; Visit Provider Urology | DX: N40.1 Benign prostatic hyperplasia with lower urinary tract symptoms (principal); N52.35 Erectile dysfunction following radiation therapy; C61 Malignant neoplasm of prostate | CPT/HCPCS: 51798; 81003 ==

== ENCOUNTER 2024-05-22 10:01 | Outpatient (REF) | payer BC, SELFPAY ==
--- NOTE | ~2024-05-22 | XR_ITS ---
CLINICAL HISTORY: M79.641 - Pain in right hand 3 view right hand Comparison: None Findings: Up to 3 mm lateral subluxation (more likely chronic than acute; correlate clinically) with associated ulnar angulation and htnuekbp-qx-zqzvns osteoarthritis at level of the 5th DIP joint. Associated prominent 5 mm dorsal 5th DIP osteophyte. No acute fracture. No radiopaque foreign body. 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 Associated prominent 5 mm dorsal 5th DIP osteophyte. This document has been electronically signed by: Lily Potter MD on 05/24/2024 13:11:20
--- OUTSIDE RECORDS SUMMARY | 2024-05-22 11:39 | XMS_ITS | Patient Health Record ---
Author Organization [facility] Address [address] [place] [address] Care Team Providers Care Rail Car Operator Name Role Phone Nya OROURKE, Mathew Primary Care Provider Kenney De La Cruz Unavailable [phone] Allergies No Known Allergies Results Component Value Reference Range Notes Pathology (Not yet reviewed by provider) Interpretation: Performing Lab:[facility], [address] [place] [phone] Notes/Report: Name: Salty Gustafson Age/Sex: 68/M : 1955 Unit#: [id number] Attend Dr: Kenney Nelson MD Re08/19/23 Status : [facility] Location: [facility] Disch: SPEC : [id number] RECD : 08/19/23 STATUS: MARYANNE JARRETT NUM: [id number] LINDA: 08/19/[address] [facility] [address]: Kenney Nelson MD ENTERED: 08/19/23 SP [...] To: Mathew Fay MD [facility] [address] [place] [address] Drive [address] [place], [place] [phone] Kenney Nelson MD [facility] [address] [place] [address] Signed (si gnature on file) Thelma Cottrell [...] APPOINTMENT ON 11/16/[address] DAY AT [facility] Oral for 90 Active Gabapentin 300 [...] Status Risk Notes Problem Colon cancer screening (203173773) Colon cancer screening (Z12.11) Active confirmed Problem Pre-procedure evaluation check (903879707) Encounter for other preprocedural examination (Z01.818) Active confirmed Problem Diverticular disease of colon (305766424) Diverticulosis of large intestine without perforation or abscess without bleeding (K57.30) Active confirmed Problem History of polyp of colon (798792167) History of colon polyps (Z86.010) Active confirmed Encounters Encounter Location Date Provider Diagnosis [facility] Outpatient [address] [place] [phone] 08/19/2023 Kenney Nelson Encounter for scre ening [...] Insured Coverage Start Date Coverage End Date [facility] [employer] PROFESSIONAL CLAIMS [address] [place] [address] [phone] [id number] SALTY GUSTAFSON Self - patient is the insured Medical (General) History Medical History History ICD Code HTN Pacemaker Prostate cancer-XRT--2018 Denies [place],DM,CVA,Lung disease,renal dise ase BPH Colonoscopy in approx [address] George is with removal of polyp Arthritis EGD in [address] Stiles d revealed some mild gastritis with biopsies negative for H. pylori Urosepsis in 2018 Surgical History Surgery Date(Month/Year) Knee replacement on the right 2021 Pacemaker-[facility] 2020 Mitral and (?)aortic valve repair-[facility] 2020
--- OUTSIDE RECORDS SUMMARY | 2024-05-22 11:39 | XMS_ITS ---
Author Organization [facility] Address [address] [place] [address] Care Team Providers Care Human Service Specialist Name Role Phone Mathew Fay MD Primary Care Provider Huey alonso Nelson Kenney Unavailable [phone] Allergies No Known Allergies REASON FOR VISIT [...] APPOINTMENT ON 11/16/[address] DAY AT [facility] Oral for 90 Active Social History Tobacco [...] Status Risk Notes Problem Colon cancer screening (075426518) Colon cancer screening (Z12.11) Active confirmed Problem Pre-procedure evaluation check (596432828) Encounter for other preprocedural examination (Z01.818) Active confirmed Problem History of polyp of colon (810018938) History of colon polyps (Z86.010) Active confirmed Vital Signs Temperature 98.7 degrees Fahrenheit 04/29/19 24 Blood pressure systolic 000 mm Hg 04/29/19 24 Blood pressure diastolic 00 mm Hg 024 Height 6 ft 3 in in 04/29/2023 Weight 144 lb 4 oz lbs 04/29/2023 BMI 18.03 kg/m2 04/29/2023 Encounters Encounter Location Date Provider Diagnosis [facility] [address] [place] [address] 04/29/2023 Kenney Nelson Colon cancer screeni ng [...] SALTY CASTANEDA HDOB:[birth year] (67 yo M)Acc No.[id number]:04/29/2023 Progress Notes Patient:?SALTY CASTANEDA Provider:?Kenney Nelson MD :1955???Age:67 Y???Sex:Male Danny e:04/29/2023 Address:[address] [place], [place] [id number] Pcp:Mathew Fay MD Subjective: * Chief Complaints: [...] Surgical History:?Knee repla cement on the right acemaker-[facility] 2020Mitral and ([facility] [place] [place] * Hospitalization/Major Diagno stic Procedure:?No Hospitalization [...] past year??Never (0 point),?Points?3,?Interpretation?Negative.?Miscellaneous:?Marital status: . 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 ???Nonsmoker; no sig. alcohol. * Medications:?TakingAspirin 8 [...] APPOINTMENT ON 11/16/[address] DAY AT [facility] Oral Tadalafil 5 MG Tablet TAKE ONE [...] APPOINTMENT ON 11/16/[address] DAY AT [facility] Oral Taking Tadalafil 5 MG Tablet TAKE [...] Procedure Codes:?3017F COLOR ECTAL CA SCREEN DOC [id number] TOBACCO NON-MSFGP0303 BP SCR NOT PRFRM REC REASON NOS * Preventive Medicine:? ??Counseling:?Care goal follow-up plan:?Above Normal BMI Follow-up?Giving encouragement to exercise,?BMI management provided?Yes.? * Follow Up:?prn * * Sign off status: Completed true * Provider:?Kenney Nelson MD Date:? 024 Generated for Cornelli orlando/Rocio/eTransmitting on:?05/22/2024 11:39 AM EDT History and Physical Notes * HPI [...]
--- OUTSIDE RECORDS SUMMARY | 2024-05-22 11:39 | XMS_ITS ---
Author Organization [facility] Address [address] [place] [address] Care Team Providers Care Professor Of Spanish Name Role Phone Mathew Fay MD Primary Care Provider Kenney De La Cruz Unavailable [phone] REASON FOR VISIT screening Problems Problem Type SNOMED Code ICD Code Onset Dates Problem Status W/U Status Risk Notes Problem Diverticular disease of colon (544074786) Diverticulosis of large intestine without perforation or abscess without bleeding (K57.30) Active confirmed Encounters Encounter Location Date Provider Diagnosis [facility] Outpatient [address] [place] [phone] 08/19/2023 Kenney Nelson Encounter for scre ening [...] SALTY CASTANEDA HDOB:[birth year] (68 yo M)Acc No.[id number]:08/19/2023 COLON WITH MAC Patient:?SALTY CASTANEDA Provider:?Kenney Nelson MD :1955???Age:68 Y???Sex:Male Danny e:08/19/2023 Address:[address] [place], [place] [phone] Pcp:Mathew Fay MD Subjective: * Chief Complaints: * ???1. Screening. * Medical History:? Objective: * Vitals:? 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 Other hemorrhoids - K64.8??? Plan: * Treatment: * Procedure Codes:?10037 LESIO N REMOVAL COLONOSCOPY, Modifiers: PT * * The named appointment provid er may or may not be the originator of this progress note, and it is not deemed complete until electronically signed by the appointment provider. Sign off status: Pending * Provider:?Kenney Nelson MD Date:? 024 Generated for Adrianna perry/Rocio/Janeensmitting on:?05/22/2024 11:39 AM EDT
== END 2024-05-22 10:02 | disposition home or self-care (01) ==
LOC: HO.HOSX 10:01
PROVIDERS: Visit Provider Orthopaedic Surgery
DX: M79.641 Pain in right hand (principal); M19.041 Primary osteoarthritis, right hand; M24.841 Other specific joint derangements of right hand, not elsewhere classified
CPT/HCPCS: 73130

== ENCOUNTER 2024-05-22 14:41 | Outpatient (AMB) | payer BC, SELFPAY ==
[2024-05-22 14:53] VITALS: BMI 18.1
--- NOTE | 2024-05-22 14:53 | MHC.OFFVIS ---
Vital Signs 05/22/24 14:53 Height 6 ft 3 in Weight 145 lb BMI 18.1 Intake Visit Reasons: DIRECTOR OF CLINICAL APPLICATIONS-RT hand 5th finger repair Intake Note: right hand dominant male presents today for a new patient visit for his right hand small finger. States his small finger looks deformed. 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 States he has no pain unless he hits it against a surface. Reports this is interfering with his work. Denies numbness or tingling. Allergies No Known Allergies [No Known Allergies*] Allergy (Verified 05/22/24 14:57) HPI HPI DIRECTOR OF CLINICAL APPLICATIONS-RT hand 5th finger repair: Details: [place] is a 68 year old right hand dominant man who presents for his right small finger. He complains of pain in his small finger primarily when struck against a surface. He also has difficulty with gripping activities. He says his finger looks deformed to him. He says he injured the finger years ago.. He denies any numbness or tingling. 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 He has a Hx of heart valve repair in 2020 and has a Pacemaker. He follows with Cardiology. [facility] Medical History Essential hypertension Non-rheumatic mitral regurgitation UTI (urinary tract infection) Prostate cancer Elevated PSA BPH (benign prostatic hyperplasia) Surgical History History of total right knee replacement Status post tricuspid valve repair (~2020) Status post mitral valve repair (~2020) History of cardiac catheterization (~07/2020) History of esophagogastroduodenoscopy (EGD) H/O colonoscopy Family History Other AA (alcohol abuse) HTN (hypertension) Social History (Updated 05/22/24 @ 14:58 by MARIA G Pedroza) Alcohol intake: current Alcohol intake frequency: holidays/special occasions only Patient Tobacco Use Status: Never used Tobacco Current occupational status: employed 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 Review of Systems Const All systems reviewed & are unremarkable except as noted in HPI and below Physical Exam Vital Signs: BMI result Body Mass Index 18.1 Const General: cooperative, healthy appearing and no acute distress Orientation/consciousness: patient oriented x3 HEENT Head: Yes normocephalic and Yes atraumatic Eyes EOM: EOMs intact bilaterally Resp Effort & Inspection: normal respiratory effort and able to speak in complete sentences Cardio Jugular venous distension: no JVD Skin General skin exam: turgor normal Rashes: no rashes Neuro General: patient oriented x3 Extrem Other: Evaluation of Right Upper Extremity: The patient is alert, oriented, and in no acute distress Neuro: Median, Ulnar, Radial nerves motor and sensory intact and sensation is normal to the tips of all digits Vascular: Cap refill brisk ROM: He can make a tight fist and extend all his digits Small finger DIP joint ~45 degrees ulnar deviation when finger is held in extension This is passively correctable He can bring the small finger close to a tight fist. He has active flexion at the D IP joint even though it is ulnarly deviated. Skin: No lacerations or abrasions. General: No Ecchymosis. No Erythema or evidence of infection. Radiographs: 3 views of the right hand, with attention to the small finger, were taken and viewed by me today in clinic. They show chronic subluxation of the small finger DIP joint, with ~45 degrees ulnar deviation, and a large dorsal osteophyte Psych Appearance: grossly normal Affect: normal affect Attitude: cooperative Assessment & Plan Assessment & Plan (1) Complete heart block: Code(s): I44.2 - Atrioventricular block, complete Category: Medical (2) Pacemaker: Code(s): Z95.0 - Presence of cardiac pacemaker Category: Medical Plan Assessment & Plan: 1. 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 We discussed the risks and benefits of a small finger DIP joint arthrodesis. The patient would like to proceed with surgery. 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 The risks and benefits of operative treatment were discussed with the patient and the patient wishes to proceed with surgery. These risks include, but are not limited to risk of damage to blood vessels, nerves, tendons, infection, recurrence, incomplete relief of preoperative symptoms, persistent pain, possible need for further surgery and the risks associated with regional blocks and anesthesia. The plan is to take the patient to the operating room sometime in the next few weeks for the following procedures: 1. Right small finger DIP joint arthrodesis, under general All of the preoperative paperwork including the consent was reviewed today. All the patient's questions were answered. The patient understands that they will be contacted by our case assistant soon to schedule this procedure He denies Diabetes, blood thinners, asthma, lung, kidney issues He has a Hx of a heart block, which was repaired in 2020, & currently has a Pacemaker Discuss possible Cardiac clearance with anesthesia Scribed for Basia Hendrix MD by Yuri Ugarte, medical tech, on 05/22/24 at 3:25 PM, EST. Orders: Orders XR hand RT min 3V Today M79.641 - Pain in right hand Coding Level of Care Code New Pt Level 4 (40186) Diagnoses Complete heart block I44.2 Pacemaker Z95.0
== END 2024-05-22 15:17 | disposition home or self-care (01) ==
LOC: HO.HOS 14:41
PROVIDERS: PCP Internal Medicine; Visit Provider Orthopaedic Surgery
DX: S63.246A Subluxation of distal interphalangeal joint of right little finger, initial encounter (principal); I44.2 Atrioventricular block, complete; Z95.0 Presence of cardiac pacemaker
CPT/HCPCS: 99204

== ENCOUNTER → 2024-05-22 14:46 | Outpatient (BNV) | payer BC, SELFPAY | PROVIDERS: Visit Provider Radiology Diagnostic Radiology | DX: M19.041 Primary osteoarthritis, right hand (principal) | CPT/HCPCS: 73130 ==

== ENCOUNTER 2024-07-05 14:29 | Outpatient (AMB) | payer BC, SELFPAY ==
[2024-07-05 14:07] VITALS: BP 120/70; PULSE 64; TEMP 36.4; O2SAT 99; BMI 17.7
--- NOTE | 2024-07-05 14:07 | A.OFFPC_ITS ---
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 Marketing Strategist Required: No Accompanied by: Self / Same As Patient Allergies No Known Allergies [No Known Allergies*] Allergy (Verified 07/05/24 14:08) Tobacco use date assessed: 07/05/24 Fall risk assessment: No Falls in past year Last assessed Fall Risk: 07/05/24 Dental Screening Dental Screen Date: 07/05/24 Did you have a dental visit in the last 12 months?: Yes Did you have a dental problem in the last 6 months where you did not have access to dental care?: No HPI HPI Comments History of Present Illness Details The patient is a 68 year old male with past medical history of mitral and tricuspid repair, CHB s/p PPM, OA s/p RTKR, BPH, history of prostate cancer presenting for follow up CV: Follows with cardiology at [facility]. Blood pressure well controlled. Denies chest pain, shortness of breath Urology: Follows with [facility] Following with orthopedics. Colonoscopy 08/2023-5 year repeat ROS CONSTITUTIONAL: Denies weight loss, fever and chills. HEENT: Denies changes in vision and hearing. RESPIRATORY: Denies SOB and cough. CV: Denies palpitations and CP GI: Denies abdominal pain, nausea, vomiting and diarrhea. : Denies dysuria and urinary frequency. MSK: Denies new myalgia and joint pain. SKIN: Denies rash and pruritus. NEUROLOGICAL: Denies headache PSYCHIATRIC: Denies recent changes in mood. PHYSICAL EXAM: GENERAL: Alert and oriented x 3. NAD EYES: EOMI. Anicteric. HENT: Moist mucous membranes. No scleral icterus. No cervical lymphadenopathy. LUNGS: Clear to auscultation bilaterally. CARDIOVASCULAR: Regular rate and rhythm. No murmur. No JVD. ABDOMEN: Soft, non-tender +bs EXTREMITIES: No edema. Non-tender. SKIN: No rashes or lesions. Warm. NEUROLOGIC: No focal neurological deficits. CN II-XII grossly intact PSYCHIATRIC: Cooperative. Appropriate mood and affect [facility] Medical History Essential hypertension Non-rheumatic mitral regurgitation UTI (urinary tract infection) Prostate cancer Elevated PSA BPH (benign prostatic hyperplasia) Surgical History History of total right knee replacement Status post tricuspid valve repair (~2020) Status post mitral valve repair (~2020) History of cardiac catheterization (~07/2020) History of esophagogastroduodenoscopy (EGD) H/O colonoscopy Family History Mother No problems noted. Father No problems noted. 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 1. Little interest or pleasure in doing things: not at all 2. Feeling down, depressed, or hopeless: not at all 3. Trouble falling or staying asleep, or sleeping too much: not at all 4. Feeling tired or having little energy: not at all 5. Poor appetite or overeating: not at all 6. Feeling bad about yourself - or that you are a failure or have let yourself or your family down: not at all 7. Trouble concentrating on things, such as reading the newspaper or watching television: not at all 8. Moving or speaking so slowly that other people could have noticed. Or the opposite - being so fidgety or restless that you have been moving around a lot more than usual: not at all 9. Thoughts that you would be better off or of hurting yourself in some way: not at all Total score: 0 Depression Screening Interpretation: Negative Depression Screening Done: Yes 94209 - PHQ-9 Billing: Yes Source: Developed by Drs. Kenney Man, Mio Pearce and colleagues, with an educational elli from [employer]. Thrive Questionnaire Date Thrive assessed: 07/05/24 I am a: Patient Within the past 12 months, did the food you bought not last and you didn't have the money to get more?: Never true Within the past 12 months, did you worry whether your food would run out before you got money to buy more?: Never true Do you have trouble paying for medicines?: No Do you have trouble getting transportation to medical appointments?: No Do you have trouble paying your heating and electricity bill?: No Do you have trouble taking care of your child, family member or friend?: No Do you have trouble with day-to-day activities such as bathing, preparing meals, shopping, managing finances, etc.?: No Are you currently unemployed and looking for a job?: No Are you interested in more education?: No THRIVE Score: 0 AUDIT C Alcohol Use Questionnaire (AUDIT-C) 1. How often do you have a drink containing alcohol?: Monthly or less 2. How many drinks containing alcohol do you have on a typical day when you are drinking?: 1 or 2 3. How often do you have six or more drinks on one occasion?: Less than monthly Total Score: 2 CHRISTEL-7 AMB Questionnaire CHRISTEL-7 Date CHRISTEL - 7 assessed: 07/05/24 Feeling nervous, anxious, or on edge: 0 = Not at all Not being able to stop or control worryin = Not at all Worrying too much about different things: 0 = Not at all Trouble relaxin = Not at all Being so restless that it is hard to sit still: 0 = Not at all Becoming easily annoyed or irritable: 0 = Not at all Feeling afraid as if something awful might happen: 0 = Not at all Total CHRISTEL-7 score (0-4 normal; 5-9 mild; 10-14 moderate; 15-21 severe): 0 Source: Developed by Drs. Kenney Man, Mio Pearce and colleagues, with an educational elli from [employer]. Physical exam (Primary Care) Vital Signs: Last Vital Signs Temp 97.5 F 07/05/24 14:07 Pulse 64 07/05/24 14:07 BP 120/70 07/05/24 14:07 Pulse Ox 99 07/05/24 14:07 Oxygen Delivery Method Room Air 07/05/24 14:07 BMI result Body Mass Index 17.7 Tobacco/Smoking Status: Tobacco use Status Tobacco use date assessed 07/05/24 07/05/24 14:09 Patient Tobacco Use Status Former Tobacco user 07/05/24 14:41 e-Cigarette/Vaping Use Former Use 07/05/24 14:41 PHQ-9: PHQ-9 Score PHQ-9: Total score 0 07/05/24 14:46 Depression Screening Interpretation: Negative Thrive Assessment: Date of Thrive Assessment Date Thrive assessed 07/05/24 07/05/24 14:09 Coding Level of Care Code New Pt Level 4 (97651) Diagnoses Essential hypertension I10 Benign prostatic hyperplasia, unspecified whether lower urinary tract symptoms present N40.0 Lower urinary tract symptom presence: unspecified whether lower urinary tract symptoms present Prostate cancer C61 Additional Codes PHQ-9 - 67411 - PHQ-9 Billing: Yes ([id number]) Assessment & Plan Assessment & Plan (1) Essential hypertension: Code(s): I10 - Essential (primary) hypertension Category: Medical (2) BPH (benign prostatic hyperplasia): Code(s): N40.0 - Benign prostatic hyperplasia without lower urinary tract symptoms Category: Medical Qualifiers: Lower urinary tract symptom presence: unspecified whether lower urinary tract symptoms present Qualified Code(s): N40.0 - Benign prostatic hyperplasia without lower urinary tract symptoms (3) Prostate cancer: Comment: w/gold seed insertion 2019 - EXBRT + hormones Code(s): C61 - Malignant neoplasm of prostate Category: Medical Plan 68 yo to establish care past medical surgical social reviewed Labs ordered ucming surgery planned. Orders: Orders Complete Blood Count Auto Diff 3 Months I10 - Essential (primary) hypertension, Z01.810 - Encounter for preprocedural cardiovascular examination, Z95.0 - Presence of cardiac pacemaker Comprehensive Met. Panel 3 Months I10 - Essential (primary) hypertension, Z01.810 - Encounter for preprocedural cardiovascular examination, Z95.0 - Presence of cardiac pacemaker Prothrombin Time INR 3 Months I10 - Essential (primary) hypertension, Z01.810 - Encounter for preprocedural cardiovascular examination, Z95.0 - Presence of cardiac pacemaker Lipid Panel 3 Months I10 - Essential (primary) hypertension, Z01.810 - Encounter for preprocedural cardiovascular examination, Z95.0 - Presence of cardiac pacemaker Medications: New diclofenac sodium 1% (Voltaren Arthritis Pain) apply to single knee, ankle, foot; for foot includes sole/toes/top of foot 4 grams topical QID 100 grams 2RF
--- OUTSIDE RECORDS SUMMARY | 2024-07-05 14:35 | XMS_ITS ---
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 DAY AT [facility] Oral for 90 Active Social History [...] Status Risk Notes Problem Colon cancer screening (260863999) Colon cancer screening (Z12.11) Active confirmed Problem Pre-procedure evaluation check (166555904) Encounter for other preprocedural examination (Z01.818) Active confirmed Problem History of polyp of colon (situation) (293474428) History of colon polyps (Z86.010) Active confirmed Vital Signs Temperature 98.7 degrees Fahrenheit 04/29/19 24 Blood pressure systolic 000 mm Hg 04/29/19 24 Blood pressure diastolic 00 mm Hg 024 Height 6 ft 3 in in 04/29/2023 Weight 144 lb 4 oz lbs 04/29/2023 BMI 18.03 kg/m2 04/29/2023 Encounters Encounter Location Date Provider Diagnosis [facility] [address] [place] [address] 04/29/2023 Kenney Nelson Colon cancer screeni ng [...] SALTY CASTANEDA HDOB:[birth year] (67 yo M)Acc No.[id number]:04/29/2023 Progress Notes Patient:?SALTY CASTANEDA Provider:?Kenney Nelson MD :1955???Age:67 Y???Sex:Male Danny e:04/29/2023 Address:[address] [place], [place] [id number] Pcp:Mathew Fay MD Subjective: * Chief Complaints: [...] Surgical History:?Knee repla cement on the right acemaker-[facility] 2020Mitral and (?)aortic valve repair-[facility] 2020 * Hospitalization/Major Diagno stic Procedure:?No Hospitalization [...] past year??Never (0 point),?Points?3,?Interpretation?Negative.?Miscellaneous:?Marital status: . 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 ???Nonsmoker; no sig. alcohol. * Medications:?TakingAspirin 8 [...] APPOINTMENT ON 11/16/[address] DAY AT [facility] Oral Tadalafil 5 MG Tablet TAKE [...] APPOINTMENT ON 11/16/[address] DAY AT [facility] Oral Taking Tadalafil 5 MG Tablet [...] Procedure Codes:?3017F COLOR ECTAL CA SCREEN DOC [id number] TOBACCO NON-XAEPK1056 BP SCR NOT PRFRM REC REASON NOS * Preventive Medicine:? ??Counseling:?Care goal follow-up plan:?Above Normal BMI Follow-up?Giving encouragement to exercise,?BMI management provided?Yes.? * Follow Up:?prn * * Sign off status: Completed true * Provider:?Kenney Nelson MD Date:? 024 Generated for Cornelli orlando/Rocio/eTransmitting on:?07/05/2024 02:35 PM EDT History and Physical Notes * [...]
== END 2024-07-05 15:00 | disposition home or self-care (01) ==
LOC: HO.HMCHD 14:29
PROVIDERS: PCP Internal Medicine; Visit Provider Internal Medicine
DX: I10 Essential (primary) hypertension (principal); N40.0 Benign prostatic hyperplasia without lower urinary tract symptoms; C61 Malignant neoplasm of prostate

== ENCOUNTER → 2024-07-05 14:29 | Outpatient (BNVA) | payer BC, SELFPAY | PROVIDERS: PCP Internal Medicine; Visit Provider Internal Medicine | DX: I10 Essential (primary) hypertension (principal); N40.0 Benign prostatic hyperplasia without lower urinary tract symptoms; C61 Malignant neoplasm of prostate; Z96.651 Presence of right artificial knee joint; Z13.30 Encounter for screening examination for mental health and behavioral disorders, unspecified; Z13.31 Encounter for screening for depression | CPT/HCPCS: 96127 ==

== ENCOUNTER → 2024-07-27 23:59 | Outpatient (BNV) | payer BC, SELFPAY ==
--- NOTE | 2024-08-07 12:19 | A.OFFVIS_ITS ---
Intake Visit Reasons: Remote device check- [employer] Allergies No Known Allergies (No Known Allergies*) Allergy (Verified 07/05/24 14:08) [facility] Medical History Essential hypertension Non-rheumatic mitral regurgitation UTI (urinary tract infection) Prostate cancer Elevated PSA BPH (benign prostatic hyperplasia) Surgical History History of total right knee replacement Status post tricuspid valve repair (~2020) Status post mitral valve repair (~2020) History of cardiac catheterization (~07/2020) History of esophagogastroduodenoscopy (EGD) H/O colonoscopy Family History Mother No problems noted. Father No problems noted. 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 Overall normal device function. [id number] Cardiac Device Interrogation, pacemaker Procedure code (CPT) selection complete Assessment & Plan Assessment & Plan (1) Pacemaker: Code(s): Z95.0 - Presence of cardiac pacemaker Category: Medical (2) Complete heart block: Code(s): I44.2 - Atrioventricular block, complete Category: Medical Plan x Coding Level of Care Code Procedure Only Diagnoses Pacemaker Z95.0 Complete heart block I44.2 CPT Codes Cardiac Device Check - Cardiac Device 12: [id number] Cardiac Device Interrogation, pacemaker ([id number])
== END ==
PROVIDERS: PCP Internal Medicine; Visit Provider Internal Medicine
DX: I44.2 Atrioventricular block, complete (principal); Z95.0 Presence of cardiac pacemaker
CPT/HCPCS: 93294

== ENCOUNTER 2024-10-11 14:18 | Outpatient (AMB) | payer BC, SELFPAY ==
--- OUTSIDE RECORDS SUMMARY | 2023-08-19 04:30 | XMS_ITS ---
Author Organization [facility] Address [address] [place] [phone] Care Team Providers Care Workforce Advisor Name Role Phone Nya (RETIRED) Mathew OROURKE Primary Care Provide r Kenney Aguilera Unavailable [phone] REASON FOR VISIT screening Problems Problem Type SNOMED Code ICD Code Onset Dates Problem Status W/U Status Risk Notes Problem Diverticular disease of colon (252937162) Diverticulosis of large intestine without perforation or abscess without bleeding (K57.30) Active confirmed Encounters Encounter Location Date Provider Diagnosis [facility] [place] [address] [place], [place] [phone] 08/19/2023 Kenney Nelson Encounter for scre ening [...] SALTY CASTANEDA HDOB:[birth year] (69 yo M)Acc No.[id number]:08/19/2023 COLON WITH MAC Patient: SALTY AUGUSTINE Provider: Savita Nelson MD :1955 A ge:68 Y S ex:Male Date:08/19/2023 Address:[address] [place], [place] [phone] Pcp:Mathew Fay (RETIRED )MD Subjective: * Chief [...] 0 08/19/2023 Generated for Adrianna perry/Rocio/Janeensmitting on: 10/11/2024 03:39 PM EDT
[2024-10-11 10:17] VITALS: BP 120/80; PULSE 62; TEMP 36.5; O2SAT 99; BMI 17.5
--- NOTE | 2024-10-11 10:17 | MHC.PC.OV ---
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 G Required: No Accompanied by: Self / Same As Patient Allergies No Known Allergies (No Known Allergies*) Allergy (Verified 10/11/24 10:17) Tobacco use date assessed: 10/11/24 Fall risk assessment: No Falls in past year Last assessed Fall Risk: 10/11/24 Dental Screening Dental Screen Date: 10/11/24 Did you have a dental visit in the last 12 months?: Yes Did you have a dental problem in the last 6 months where you did not have access to dental care?: No HPI HPI Comments History of Present Illness Details The patient is a 69-year-old male with history of heart disease with valvular repairs and pace maker in place, knee pain, low back pain, HSV, history of prostate Cancer, and injury to right 5th finger presenting to [facility] care. He is followed by Cardiology and will see them 10/18. He is on Metoprolol, Amlodipine and Aspirin 81mg. The patient also takes prophylactic antibiotics before dental procedures due to his cardiac history. He is using Diclofenac gel for his knee and back pain. He also uses Lidocaine patches on his back. The patient underwent right knee replacement surgery and has titanium implants in place. Additionally, the patient has spinal issues with vertebrae 3, 4, and 5 beginning to fuse, but surgery is not currently planned unless symptoms worsen. The patient reports a history of a finger fracture that occurred years ago, which was initially unnoticed and untreated. The fracture led to a tendon injury, resulting in the inability of the finger to maintain a straight position due to the lack of tendon support. The patient is scheduled for surgical intervention on November 08 to correct this issue. The patient has a history of herpes simplex virus infection, for which acyclovir is prescribed as needed. Preventative care measures include a colonoscopy, which is not due until 2028 following a normal result in 2023. [facility] Medical History (Updated 10/15/24 @ 01:43 by SUSY Cedeño) BPH (benign prostatic hyperplasia) Chronic low back pain Dislocation of finger Elevated PSA Essential hypertension HSV (herpes simplex virus) infection Knee pain, right Non-rheumatic mitral regurgitation Prostate cancer UTI (urinary tract infection) Surgical History H/O colonoscopy History of cardiac catheterization (~07/2020) History of esophagogastroduodenoscopy (EGD) History of total right knee replacement Status post mitral valve repair (~2020) Status post tricuspid valve repair (~2020) Family History Mother No problems noted. Father No problems noted. 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 1. Little interest or pleasure in doing things: not at all 2. Feeling down, depressed, or hopeless: not at all 3. Trouble falling or staying asleep, or sleeping too much: not at all 4. Feeling tired or having little energy: not at all 5. Poor appetite or overeating: not at all 6. Feeling bad about yourself - or that you are a failure or have let yourself or your family down: not at all 7. Trouble concentrating on things, such as reading the newspaper or watching television: not at all 8. Moving or speaking so slowly that other people could have noticed. Or the opposite - being so fidgety or restless that you have been moving around a lot more than usual: not at all 9. Thoughts that you would be better off or of hurting yourself in some way: not at all Total score: 0 Source: Developed by Drs. Kenney Man, Paris Gomez, Mio Perez and colleagues, with an educational elli from [employer]. Thrive Questionnaire Date Thrive assessed: 10/11/24 I am a: Patient Within the past 12 months, did the food you bought not last and you didn't have the money to get more?: Never true Within the past 12 months, did you worry whether your food would run out before you got money to buy more?: Never true Do you have trouble paying for medicines?: No Do you have trouble getting transportation to medical appointments?: No Do you have trouble paying your heating and electricity bill?: No Do you have trouble taking care of your child, family member or friend?: No Do you have trouble with day-to-day activities such as bathing, preparing meals, shopping, managing finances, etc.?: No Are you currently unemployed and looking for a job?: No Are you interested in more education?: No THRIVE Score: 0 AUDIT C Alcohol Use Questionnaire (AUDIT-C) 1. How often do you have a drink containing alcohol?: Monthly or less 2. How many drinks containing alcohol do you have on a typical day when you are drinking?: 1 or 2 3. How often do you have six or more drinks on one occasion?: Less than monthly Total Score: 2 CHRISTEL-7 AMB Questionnaire CHRISTEL-7 Date CHRISTEL - 7 assessed: 10/11/24 Feeling nervous, anxious, or on edge: 0 = Not at all Not being able to stop or control worryin = Not at all Worrying too much about different things: 0 = Not at all Trouble relaxin = Not at all Becoming easily annoyed or irritable: 0 = Not at all Feeling afraid as if something awful might happen: 0 = Not at all Source: Developed by Drs. Kenney Man, Paris Gomez, Mio Perez and colleagues, with an educational elli from [employer]. Review of Systems Const Details: - Dermatological: Reports history of herpes simplex virus infection. Denies current lesions. .CONSTITUTIONAL No weight loss HEAD/NECK Negative RESPIRATORY Negative CARDIOVASCULAR Reports history of valvular heart disease and pacemaker placement. Denies current chest pain or palpitations. GASTROINTESTINAL Negative MUSCULOSKELETAL Reports right 5th finger deformity due to tendon injury. NEUROLOGICAL Denies dizziness or syncope. SKIN Reports history of herpes simplex virus infection. Denies current lesions PSYCHIATRIC Negative Physical exam (Primary Care) Vital Signs: Last Vital Signs Temp 97.7 F 10/11/24 10:17 Pulse 62 10/11/24 10:17 BP 120/80 10/11/24 10:17 Pulse Ox 99 10/11/24 10:17 Oxygen Delivery Method Room Air 10/11/24 10:17 BMI result Body Mass Index 17.5 GENERAL Well developed, Well nourished, in no apparent distress HEENT Head-Normocephalic Eyes- PERRLA, EOMI, Conjuctiva clear, lids WNL Ears- Canals clear, TMs WNL Mouth/Throat-No lesions, no erythema, no exudate Neck- Supple, No lymphadenopathy, thyroid WNL RESPIRATORY Normal I:E, Clear to auscultation CARDIOVASCULAR Regular, rate and rhthym, No murmurs or rubs GASTROINTESTINAL Soft, nontender, normal bowel sounds, no masses NEUROLOGICAL Gait normal PSYCHIATRIC Oriented to person, place and time Mood and affect WNL Appearance WNL Speech WNL Thought processes WNL Tobacco/Smoking Status: Tobacco use Status Tobacco use date assessed 10/11/24 10/11/24 10:19 Patient Tobacco Use Status Former Tobacco user 10/11/24 10:19 e-Cigarette/Vaping Use Former Use 10/11/24 10:19 PHQ-9: PHQ-9 Score PHQ-9: Total score 0 10/11/24 18:22 Thrive Assessment: Date of Thrive Assessment Date Thrive assessed 10/11/24 10/11/24 10:19 Coding Level of Care Code New Pt New Pt Level 4 (23175) Patient Type New Diagnoses Hypogonadism in male E29.1 Benign prostatic hyperplasia, unspecified whether lower urinary tract symptoms present N40.0 Lower urinary tract symptom presence: unspecified whether lower urinary tract symptoms present Prostate cancer C61 Complete heart block I44.2 Essential hypertension I10 HSV (herpes simplex virus) infection B00.9 Knee pain, right M25.561 Chronic low back pain M54.50; G89.29 Dislocation of finger S63.259A Time Spent (min) 35 Comment Time Spent on chart review, H&P, Patient education, orders submitted and follow up. Assessment & Plan Assessment & Plan (1) Hypogonadism in male: Code(s): E29.1 - Testicular hypofunction Category: Medical Plan: Patient on Testosterone and followed by Dr. Pickett, Urology (2) BPH (benign prostatic hyperplasia): Code(s): N40.0 - Benign prostatic hyperplasia without lower urinary tract symptoms Category: Medical Qualifiers: Lower urinary tract symptom presence: unspecified whether lower urinary tract symptoms present Qualified Code(s): N40.0 - Benign prostatic hyperplasia without lower urinary tract symptoms Plan: The patient is on Tamsulosin for prostate enlargement and reports adequate control of symptoms. He is followed by Piyush Marie, Urology (3) Prostate cancer: Comment: w/gold seed insertion 2019 - EXBRT + hormones Code(s): C61 - Malignant neoplasm of prostate Category: Medical Plan: Followed by Dr. Pickett, Urology (4) Complete heart block: Code(s): I44.2 - Atrioventricular block, complete Category: Medical Plan: The patient has undergone surgical repair for two leaking valves and has a pacemaker in place. Regular follow-up with a cycling instructor is recommended to monitor cardiac function and pacemaker status. (5) Essential hypertension: Comment: BP today was 120/80 Code(s): I10 - Essential (primary) hypertension Category: Medical Plan: Controlled. Patient to continue Amlodipine and Metoprolol. (6) HSV (herpes simplex virus) infection: Code(s): B00.9 - Herpesviral infection, unspecified Category: Medical Plan: The patient is prescribed acyclovir as needed for herpes simplex virus infection. No current outbreaks reported. (7) Knee pain, right: Code(s): M25.561 - Pain in right knee Category: Medical Plan: The patient has titanium implants following knee replacement surgery. No current issues reported with the knee. (8) Chronic low back pain: Code(s): M54.50 - Low back pain, unspecified; G89.29 - Other chronic pain Category: Medical Plan: The patient has spinal fusion at vertebrae 3, 4, and 5. Surgery is not planned unless symptoms worsen, and conservative management with topical treatments is ongoing. (9) Dislocation of finger: Code(s): S63.259A - Unspecified dislocation of unspecified finger, initial encounter Category: Medical Plan: The patient is scheduled for surgical intervention on November 08 to address the finger fracture and associated tendon injury. Plan During the visit, we discussed the upcoming finger surgery scheduled for November 08, including the need for pre-operative paperwork to be completed by the surgeon. We reviewed the patient's cardiac history, including the presence of a pacemaker and previous valve repair, emphasizing the importance of regular cardiology follow-ups. The patient was advised to continue current medications, including tamsulosin for prostate enlargement and acyclovir as needed for herpes simplex virus infection. We also discussed the patient's knee replacement and spinal issues, noting that surgery is not planned unless symptoms worsen. Preventative care measures, including the next scheduled colonoscopy in 2028, were also reviewed. Patient Instructions: - Ensure pre-operative paperwork is completed by the surgeon for the upcoming finger surgery. - Continue regular follow-ups with the cycling instructor to monitor heart health and pacemaker status. - Take acyclovir as needed for herpes simplex virus infection. - Continue tamsulosin for prostate enlargement as prescribed. - Schedule the next colonoscopy for 2028.
--- OUTSIDE RECORDS SUMMARY | 2024-10-11 15:39 | XMS_ITS | Patient Health Record ---
Author Organization [facility] Address [address] [place] [address] Care Team Providers Care Insurance Follow Up Specialist Name Role Phone Nya (RETIRED) Mathew OROURKE Primary Care Provide r Lor NelsonKenney Unavailable [phone] Allergies No Known Allergies Reason For Referral No Information Medications Medication [...] APPOINTMENT ON 11/16/[address] DAY AT [facility] Oral for 90 Active Gabapentin 300 [...] Status Risk Notes Problem Colon cancer screening (516794804) Colon cancer screening (Z12.11) Active confirmed Problem Pre-procedure evaluation check (089558617) Encounter for other preprocedural examination (Z01.818) Active confirmed Problem Diverticular disease of colon (930524711) Diverticulosis of large intestine without perforation or abscess without bleeding (K57.30) Active confirmed Problem History of polyp of colon (situation) (550851870) History of colon polyps (Z86.010) Active confirmed Plan Of Treatment Pending Test Test Name Order Date Pathology 08/19/2023 Future Test Test Name Order Date COLONOSCOPY 04/29/2023 Insurance Providers Payer Name Payer Address Payer Phone Subscriber Number Group Number Insured Name Patient Relationship to Insured Coverage Start Date Coverage End Date [facility] [place] [employer] [place]AL [place] [address] [place] [address] [id number] SALTY CASTANEDA Self - patient is the insured Medical (General) History Medical History History ICD Code HTN Pacemaker Prostate cancer-XRT--2018 Denies NM,DM,CVA,Lung disease,renal dise ase BPH Colonoscopy in approx [address] George is with removal of polyp Arthritis EGD [place] [address] Stiles d revealed some mild gastritis with biopsies negative for H. pylori Urosepsis in 2018 Surgical History Surgery Date(Month/Year) Knee replacement on the right 2021 Pacemaker-[employer] 2020 Mitral and (?)aortic valve repair-[facility] 2020
== END 2024-10-11 14:50 | disposition home or self-care (01) ==
LOC: HO.HMCHD 14:18
PROVIDERS: PCP Internal Medicine; Visit Provider Physician Assistant Medical
DX: E29.1 Testicular hypofunction (principal); N40.0 Benign prostatic hyperplasia without lower urinary tract symptoms; C61 Malignant neoplasm of prostate; I44.2 Atrioventricular block, complete; I10 Essential (primary) hypertension; B00.9 Herpesviral infection, unspecified; M25.561 Pain in right knee; M54.50 Low back pain, unspecified; G89.29 Other chronic pain; S63.259A Unspecified dislocation of unspecified finger, initial encounter

== ENCOUNTER 2024-10-15 13:51 | Outpatient (AMB) | payer BC, SELFPAY ==
--- OUTSIDE RECORDS SUMMARY | 2023-08-19 04:30 | XMS_ITS ---
Author Organization [facility] Address [address] [place] [address] Care Team Providers Care Leaf Sorter Name Role Phone Nya (RETIRED) Mathew OROURKE Primary Care Provide r Kenney Aguilera Unavailable [phone] REASON FOR VISIT screening Problems Problem Type SNOMED Code ICD Code Onset Dates Problem Status W/U Status Risk Notes Problem Diverticular disease of colon (438129297) Diverticulosis of large intestine without perforation or abscess without bleeding (K57.30) Active confirmed Encounters Encounter Location Date Provider Diagnosis [facility] Outpatient [address] [place], [place] [phone] 08/19/2023 Kenney Nelson Encounter for scre ening [...] SALTY CASTANEDA HDOB:[birth year] (69 yo M)Acc No.[id number]:08/19/2023 COLON WITH MAC Patient: SALTY AUGUSTINE Provider: Savita Nelson MD :1955 A ge:68 Y S ex:Male Date:08/19/2023 Address:[address] [place], [place] [phone] Pcp:Mathew Fay (RETIRED )MD Subjective: * Chief [...] 0 08/19/2023 Generated for Adrianna perry/Rocio/Janeensmitting on: 10/15/2024 04:13 PM EDT
--- NOTE | 2024-10-15 14:49 | A.OFFVIS_ITS ---
Vital Signs 10/15/24 14:50 Height 6 ft 3 in Weight 140 lb BMI 17.5 BP 120/66 Blood Pressure Location Lt brachial Position Sitting Pulse 60 Pulse Source Monitor Intake Visit Reasons: follow up device ck rs from 09/17 Allergies No Known Allergies (No Known Allergies*) Allergy (Verified 10/11/24 10:17) Medication List - Last Reconciled 10/15/24 by Duncan Noonan MD acyclovir 400 mg PO BID amlodipine 5 mg PO DAILY ascorbic acid (vitamin C) mg PO aspirin 81 mg PO DAILY diclofenac sodium 1% 4 grams topical QID metoprolol tartrate 37.5 mg (1.5 x 25 mg) PO BID 90 days tadalafil 5 mg PO DAILY 90 days tamsulosin 0.4 mg PO DAILY testosterone 2 pumps topical DAILY 28 days HPI Comments Details: [place] returns for follow-up regarding mitral and tricuspid valve repair. Due to severe mitral regurgitation, he underwent surgical intervention for the same. Due to complete heart block perioperatively, he also underwent a permanent pacemaker implantation. Since last seen, he is doing good. No cardiac symptoms or other concerns. [facility] Medical History (Updated 10/15/24 @ 01:43 by SUSY Cedeño) Dislocation of finger Chronic low back pain Knee pain, right HSV (herpes simplex virus) infection Essential hypertension Non-rheumatic mitral regurgitation UTI (urinary tract infection) Prostate cancer Elevated PSA BPH (benign prostatic hyperplasia) Surgical History History of total right knee replacement Status post tricuspid valve repair (~2020) Status post mitral valve repair (~2020) History of cardiac catheterization (~07/2020) History of esophagogastroduodenoscopy (EGD) H/O colonoscopy Family History Mother No problems noted. Father No problems noted. 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 Cognitive needs: No Hearing needs: No Vision needs: Yes (reading glasses) Review of Systems Const Denies weakness ENT Denies dizziness Card Denies chest pain, Denies chest pain with activity, Denies syncope, Denies rapid heart rate, Denies pedal edema, Denies edema, Denies leg edema, Denies lightheadedness, Denies palpitations, Denies dyspnea, Denies dyspnea on exertion and Denies orthopnea Resp Denies cough, Denies dyspnea and Denies dyspnea on exertion GI Denies hematochezia and Denies change in stool character Musc Denies abnormal gait, Denies muscle cramps, Denies muscle weakness, Denies numbness, Denies radiating pain into limb and Denies tingling Neuro Denies abnormal gait, Denies dizziness, Denies syncope, Denies numbness, Denies tingling and Denies weakness Endo Denies palpitations Physical Exam Vital Signs: Last Vital Signs Pulse 60 10/15/24 14:50 BP 120/66 10/15/24 14:50 BMI result Body Mass Index 17.5 Const General: comfortable and no acute distress Orientation/consciousness: patient oriented x3 HEENT Other: Unremarkable Head: Yes normal to inspection Neck Neck: Yes normal visual inspection Chest Chest palpation & inspection: normal inspection of the chest Resp Auscultation: clear to auscultation bilaterally Cardio Palpation: normal PMI Heart sounds: S1 normal heart sound present, S2 normal heart sound present, no gallops, no murmurs and no rubs GI Palpation (GI): Soft to palpation Back/Spine/Pelvis Other: unremarkable Skin General skin exam: no rashes or lesions noted Neuro General: patient oriented x3 Extrem General: Yes normal to inspection Psych Mental Status: mental status grossly normal Office Procedures Cardiac Device Check Cardiac Device Check Details: Pacemaker interrogated today. Dual-chamber device, programmed DDD. Battery status 8.4 years. Normal lead parameters. Atrial pacing 27%. Ventricular pacing 99.3%. Transient NSVT lasting only a 2nd. Five episodes of AT/AF, since August 2024. Longest and last 10/13/2024 4 minutes. Atrial high rate 154 and ventricular rate 106/Min. [id number] Cardiac Device Check, pacemaker dual lead Procedure code (CPT) selection complete EKG Details: EKG with AV dual paced rhythm at 60/Min. [id number], Complete Assessment & Plan Assessment & Plan (1) Status post mitral valve repair: Onset Date: ~2020 Code(s): Z98.890 - Other specified postprocedural states Category: Surgical Plan: On the echocardiogram, mitral valve repair with normal valvular function. Preoperative catheterization shows normal coronaries. Infective endocarditis prophylaxis per protocol. (2) Status post tricuspid valve repair: Onset Date: ~2020 Code(s): Z98.890 - Other specified postprocedural states Category: Surgical Plan: On the echocardiogram, normal valve function. (3) Complete heart block: Code(s): I44.2 - Atrioventricular block, complete Category: Medical Plan: Status post pacemaker placement with normal function. (4) Essential hypertension: Comment: BP today was 120/80 Code(s): I10 - Essential (primary) hypertension Category: Medical Plan: Stable. On amlodipine, beta-blockers. Coding Level of Care Code Est Pt Level 4 (10221) Complex EM visit Add On G2211 Diagnoses Status post mitral valve repair Z98.890 Status post tricuspid valve repair Z98.890 Complete heart block I44.2 Essential hypertension I10 CPT Codes Cardiac Device Check - Cardiac Device 2: [id number] Cardiac Device Check, pacemaker dual lead ([id number]) EKG - CPT: 33172-[id number], Complete ([id number])
[2024-10-15 14:50] VITALS: BP 120/66; PULSE 60; BMI 17.5
--- OUTSIDE RECORDS SUMMARY | 2024-10-15 16:14 | XMS_ITS | Patient Health Record ---
Author Organization [facility] Address [address] [place] [address] Care Team Providers Care Weed Controller Name Role Phone Nya (RETIRED) Mathew OROURKE Primary Care Provide r Lor NelsonKenney Unavailable [phone] Allergies No Known Allergies Reason For Referral [...] APPOINTMENT ON 11/16/[address] DAY AT [facility] Oral for 90 Active Gabapentin 300 MG [...] Status Risk Notes Problem Colon cancer screening (901367353) Colon cancer screening (Z12.11) Active confirmed Problem Pre-procedure evaluation check (345639603) Encounter for other preprocedural examination (Z01.818) Active confirmed Problem Diverticular disease of colon (954874140) Diverticulosis of large intestine without perforation or abscess without bleeding (K57.30) Active confirmed Problem History of polyp of colon (situation) (807664649) History of colon polyps (Z86.010) Active confirmed Plan Of Treatment Pending Test Test Name Order Date Pathology 08/19/2023 Future Test Test Name Order Date COLONOSCOPY 04/29/2023 Insurance Providers Payer Name Payer Address Payer Phone Subscriber Number Group Number Insured Name Patient Relationship to Insured Coverage Start Date Coverage End Date [facility] [place] [employer] PROFESSIONAL [place]S [address] [place] [address] [id number] SALTY CASTANEDA Self - patient is the insured Medical (General) History Medical History History ICD Code HTN Pacemaker Prostate cancer-XRT--2018 Denies DC,DM,CVA,Lung disease,renal dise ase BPH Colonoscopy in approx [address] George is with removal of polyp Arthritis EGD [place] [address] Stiles d revealed some mild gastritis with biopsies negative for H. pylori Urosepsis in 2018 Surgical History Surgery Date(Month/Year) Knee replacement on the right 2021 Pacemaker-[employer] 2020 Mitral and (?)aortic valve repair-[facility] te 2020
== END 2024-10-15 15:11 | disposition home or self-care (01) ==
PROVIDERS: PCP Internal Medicine; Visit Provider Internal Medicine
DX: I44.2 Atrioventricular block, complete (principal); Z98.890 Other specified postprocedural states; I10 Essential (primary) hypertension
CPT/HCPCS: 93010; 93280; 99214

== ENCOUNTER → 2024-10-15 13:51 | Outpatient (BNVA) | payer BC, SELFPAY | PROVIDERS: PCP Internal Medicine; Visit Provider Internal Medicine | DX: Z45.010 Encounter for checking and testing of cardiac pacemaker pulse generator [battery] (principal); I10 Essential (primary) hypertension; I44.2 Atrioventricular block, complete; Z98.890 Other specified postprocedural states | CPT/HCPCS: 93005; 93280 ==

== ENCOUNTER → 2024-10-27 23:59 | Outpatient (BNV) | payer BC, SELFPAY ==
--- NOTE | 2024-11-01 08:35 | MHC.OFFVIS ---
Intake Visit Reasons: Remote device check- [employer] Allergies No Known Allergies (No Known Allergies*) Allergy (Verified 10/11/24 10:17) [facility] Medical History (Updated 10/15/24 @ 01:43 by SUSY Cedeño) Dislocation of finger Chronic low back pain Knee pain, right HSV (herpes simplex virus) infection Essential hypertension Non-rheumatic mitral regurgitation UTI (urinary tract infection) Prostate cancer Elevated PSA BPH (benign prostatic hyperplasia) Surgical History History of total right knee replacement Status post tricuspid valve repair (~2020) Status post mitral valve repair (~2020) History of cardiac catheterization (~07/2020) History of esophagogastroduodenoscopy (EGD) H/O colonoscopy Family History Mother No problems noted. Father No problems noted. 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 Overall normal device function. [id number] Cardiac Device Interrogation, pacemaker Procedure code (CPT) selection complete Assessment & Plan Assessment & Plan (1) Pacemaker: Code(s): Z95.0 - Presence of cardiac pacemaker Category: Medical (2) Complete heart block: Code(s): I44.2 - Atrioventricular block, complete Category: Medical Plan x Coding Level of Care Code Procedure Only Diagnoses Pacemaker Z95.0 Complete heart block I44.2 CPT Codes Cardiac Device Check - Cardiac Device 12: [id number] Cardiac Device Interrogation, pacemaker ([id number])
== END ==
PROVIDERS: PCP Internal Medicine; Visit Provider Internal Medicine
DX: I44.2 Atrioventricular block, complete (principal); Z95.0 Presence of cardiac pacemaker
CPT/HCPCS: 93294

== ENCOUNTER 2024-10-31 12:55 | Outpatient (AMB) | payer BC, SELFPAY ==
--- OUTSIDE RECORDS SUMMARY | 2023-08-19 04:30 | XMS_ITS ---
Author Organization [facility] Address [address] [place] [address] Care Team Providers Care Gold Reclaimer Name Role Phone Nya (RETIRED) Mathew OROURKE Primary Care Provide r Kenney Aguilera Unavailable [phone] REASON FOR VISIT screening Problems Problem Type SNOMED Code ICD Code Onset Dates Problem Status W/U Status Risk Notes Problem Diverticular disease of colon (081330857) Diverticulosis of large intestine without perforation or abscess without bleeding (K57.30) Active confirmed Encounters Encounter Location Date Provider Diagnosis [facility] Outpatient [address] [place], [place] [phone] 08/19/2023 Kenney Nelson Encounter for scre ening [...] SALTY CASTANEDA HDOB:[birth year] (69 yo M)Acc No.[id number]:08/19/2023 COLON WITH MAC Patient: SALTY AUGUSTINE Provider: Savita Nelson MD :1955 A ge:68 Y S ex:Male Date:08/19/2023 Address:[address] [place], [place] [phone] Pcp:Mathew Fay (RETIRED )MD Subjective: * Chief Complaints: * 1 . Screening. * Medical History: Objective: * Vitals: Assessment: * Assessment: 1. E ncounter for screening colonoscopy - Z12.11 (Primary) 2 . C olon polyps - K63.5 3 . R adiation proctitis - K62.7 4 . D iverticulosis of large intestine without perforation or abscess without bleeding - K57.30 5 . Other hemorrhoids - K64.8 Plan: * Treatment: * Procedure Codes: 4 5385 LESION REMOVAL COLONOSCOPY, Modifiers: PT * * The named appointment provid er may or may not be the originator of this progress note, and it is not deemed complete until electronically signed by the appointment provider. Sign off status: Pending * Provider: Savita Nelson MD Date: 0 08/19/2023 Generated for Adrianna perry/Rocio/Janeensmitting on: 10/31/2024 03:20 PM EDT
--- NOTE | 2024-10-31 12:56 | MHC.OFFVIS ---
Vital Signs 10/31/24 13:02 Height 6 ft 3 in Weight 140 lb BMI 17.5 BP 120/76 Blood Pressure Location Rt brachial Position Sitting Intake Visit Reasons: Preop RT SF DIP arthrodesis 11/08/24 AR Intake Note: Chico is a 69 year old right hand dominant man who presents today for a pre operative visit to discuss his scheduled right small finger DIP joint arthrodesis, under general DOS: 11/08/[address] Basia Hendrix. Allergies No Known Allergies (No Known Allergies*) Allergy (Verified 10/11/24 10:17) HPI HPI Preop RT SF DIP arthrodesis 11/08/24 AR: Details: Chico is a 69 year old right hand dominant man who presents today for a pre operative visit to discuss his scheduled right small finger DIP joint arthrodesis, under general DOS: 11/08/[address] Basia Hendrix. No new medication or medical diagnoses since previous evaluation, and would like to still proceed with surgery as planned. [facility] Medical History (Updated 11/06/24 @ 15:48 by Thelma Prasad RN) History of pacemaker Dislocation of finger Chronic low back pain Knee pain, right HSV (herpes simplex virus) infection Essential hypertension Non-rheumatic mitral regurgitation UTI (urinary tract infection) Prostate cancer Elevated PSA BPH (benign prostatic hyperplasia) Surgical History History of total right knee replacement Status post tricuspid valve repair (~2020) Status post mitral valve repair (~2020) History of cardiac catheterization (~07/2020) History of esophagogastroduodenoscopy (EGD) H/O colonoscopy Family History Mother No problems noted. Father No problems noted. 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 Cognitive needs: No Hearing needs: No Vision needs: Yes (reading glasses) Physical Exam Vital Signs: Last Vital Signs BP 120/76 10/31/24 13:02 BMI result Body Mass Index 17.5 Const General: cooperative, healthy appearing and no acute distress Orientation/consciousness: patient oriented x3 HEENT Head: Yes normocephalic and Yes atraumatic Eyes EOM: EOMs intact bilaterally Resp Effort & Inspection: normal respiratory effort and able to speak in complete sentences Cardio Jugular venous distension: no JVD Skin General skin exam: turgor normal Rashes: no rashes Neuro General: patient oriented x3 Extrem Other: Evaluation of Right Upper Extremity: The patient is alert, oriented, and in no acute distress Neuro: Median, Ulnar, Radial nerves motor and sensory intact and sensation is normal to the tips of all digits Vascular: Cap refill brisk ROM: He can make a tight fist and extend all his digits Small finger DIP joint ~45 degrees ulnar deviation when finger is held in extension This is passively correctable He can bring the small finger close to a tight fist. He has active flexion at the D IP joint even though it is ulnarly deviated. Skin: No lacerations or abrasions. General: No Ecchymosis. No Erythema or evidence of infection. Psych Appearance: grossly normal Affect: normal affect Attitude: cooperative Assessment & Plan Assessment & Plan (1) Complete heart block: Code(s): I44.2 - Atrioventricular block, complete Category: Medical (2) Pacemaker: Code(s): Z95.0 - Presence of cardiac pacemaker Category: Medical Plan Assessment & Plan: 1. 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 We discussed the risks and benefits of a small finger DIP joint arthrodesis. The patient would like to proceed with surgery. 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 The risks and benefits of operative treatment were discussed with the patient and the patient wishes to proceed with surgery. These risks include, but are not limited to risk of damage to blood vessels, nerves, tendons, infection, recurrence, incomplete relief of preoperative symptoms, persistent pain, possible need for further surgery and the risks associated with regional blocks and anesthesia. The plan is to take the patient to the operating room sometime in the next few weeks for the following procedures: 1. Right small finger DIP joint arthrodesis, under general All of the preoperative paperwork including the consent was reviewed today. All the patient's questions were answered. The patient understands that they will be contacted by our neurosurgery spine physician soon to schedule this procedure He denies Diabetes, blood thinners, asthma, lung, kidney issues He has a Hx of a heart block, which was repaired in 2020, & currently has a Pacemaker Discuss possible Cardiac clearance with anesthesia Coding Level of Care Code Est Pt Level 4 (21268) Diagnoses Complete heart block I44.2 Pacemaker Z95.0
[2024-10-31 13:02] VITALS: BP 120/76; BMI 17.5
--- OUTSIDE RECORDS SUMMARY | 2024-10-31 15:21 | XMS_ITS | Patient Health Record ---
Author Organization [facility] Address [address] [place] [address] Care Team Providers Care Mat Cutter Name Role Phone Nya (RETIRED) Mathew OROURKE Primary Care Provide r Lor Kenney Nelson Unavailable [phone] Allergies No Known Allergies Reason For Referral [...] APPOINTMENT ON 11/16/[address] DAY AT [facility] Oral for 90 Active Gabapentin [...] Status Risk Notes Problem Colon cancer screening (111028735) Colon cancer screening (Z12.11) Active confirmed Problem Pre-procedure evaluation check (785264989) Encounter for other preprocedural examination (Z01.818) Active confirmed Problem Diverticular disease of colon (080673993) Diverticulosis of large intestine without perforation or abscess without bleeding (K57.30) Active confirmed Problem History of polyp of colon (situation) (807126245) History of colon polyps (Z86.010) Active confirmed Plan Of Treatment Pending Test Test Name Order Date Pathology 08/19/2023 Future Test Test Name Order Date COLONOSCOPY 04/29/2023 Insurance Providers Payer Name Payer Address Payer Phone Subscriber Number Group Number Insured Name Patient Relationship to Insured Coverage Start Date Coverage End Date [facility] [employer] PROFESSIONAL [place]S [address] [place] [address] [id number] SALTY CASTANEDA Self - patient is the insured Medical (General) History Medical History History ICD Code HTN Pacemaker Prostate cancer-XRT--2018 Denies AR,DM,CVA,Lung disease,renal dise ase BPH Colonoscopy in approx [address] George is with removal of polyp Arthritis EGD in [address] Stiles d revealed some mild gastritis with biopsies negative for H. pylori Urosepsis in 2018 Surgical History Surgery Date(Month/Year) Knee replacement on the right 2021 Pacemaker-[employer] 2020 Mitral and (?)aortic valve repair-[facility] te 2020
== END 2024-10-31 13:41 | disposition home or self-care (01) ==
LOC: HO.HOS 12:56
PROVIDERS: PCP Internal Medicine
DX: I44.2 Atrioventricular block, complete (principal); Z95.0 Presence of cardiac pacemaker
CPT/HCPCS: 99214

== ENCOUNTER 2024-10-31 12:55 | Outpatient (REF) | payer BC, SELFPAY ==
[2024-10-31 13:58] LABS: MANUAL DIFF FLAG NO
[2024-10-31 14:23] LABS: Hematocrit 41.1 % (42.0-52.0); Hemoglobin 13.5 g/dl (14.0-18.0); Imm Gran Abs Auto 0.01 X10*3/uL (0.00-0.03); Imm Gran Pct Auto 0.3 % (0.0-0.4); Lymphocytes Absolute Auto 1.0 X10*3/uL (1.2-4.9); Mean Corpuscular HGB Conc 32.8 g/dl (31.0-36.0); Mean Corpuscular Hemoglobin 28.5 pg (27.0-33.0); Mean Corpuscular Volume 86.9 fL (80.0-98.0); NRBC Abs Auto 0.000 X10*3/uL (0.0-0.012); NRBC Pct Auto 0.0 /100WBC (0.0-0.2); Platelet Count 237 X10*3/uL (160-400); Red Blood Count 4.73 X10*6/uL (4.60-5.80); White Blood Count 3.1 X10*3/uL (4.8-10.8)
[2024-10-31 14:28] LABS: INTERNATIONAL NORM RATIO 1.0 (0.9-1.1); Prothrombin Time 11.8 SEC (10.9-12.4)
[2024-10-31 15:13] LABS: Prostate Specific Antigen 0.19 ng/mL (<0.05-4.0)
[2024-10-31 15:15] LABS: Alanine Aminotransferase 24 U/L (0-40); Albumin Level 4.0 g/dL (3.5-5.0); Alkaline Phosphatase 58 U/L (39-117); Anion Gap 10 (12-20); Aspartate Amino Transferase 30 U/L (5-37); Blood Urea Nitrogen 17 mg/dL (9-16); Calcium 9.1 mg/dL (8.4-10.2); Carbon Dioxide 32 mmol/L (22-29); Chloride 107 mmol/L (96-108); Cholesterol 148 mg/dL (<200); Estimated Glomerular Filt Rate 56; HDL Cholesterol 82 mg/dL (>40); Potassium 4.6 mmol/L (3.3-5.1); Sodium 144 mmol/L (135-145); Total Protein 6.6 g/dL (6.5-8.0); Triglycerides 47 mg/dL (<150)
== END 2024-10-31 12:56 | disposition home or self-care (01) ==
LOC: HO.LAB 12:55
PROVIDERS: Internal Medicine; Urology; PCP Internal Medicine
DX: Z01.810 Encounter for preprocedural cardiovascular examination (principal); I44.2 Atrioventricular block, complete; C61 Malignant neoplasm of prostate; I10 Essential (primary) hypertension; Z12.5 Encounter for screening for malignant neoplasm of prostate; Z51.81 Encounter for therapeutic drug level monitoring; Z95.0 Presence of cardiac pacemaker; Z87.891 Personal history of nicotine dependence
CPT/HCPCS: 36415; 80053; 80061; 84153; 84403; 85025; 85027; 85610

== ENCOUNTER 2024-11-27 14:20 | Outpatient (AMB) | payer BC, SELFPAY ==
--- OUTSIDE RECORDS SUMMARY | 2023-08-19 04:30 | XMS_ITS ---
Author Organization [facility] Address [address] [place] [address] Care Team Providers Care Ict Customer Support Officer Name Role Phone Nya (RETIRED) Mathew OROURKE Primary Care Provide r Kenney Aguilera Unavailable [phone] REASON FOR VISIT screening Problems Problem Type SNOMED Code ICD Code Onset Dates Problem Status W/U Status Risk Notes Problem Diverticular disease of colon (335891749) Diverticulosis of large intestine without perforation or abscess without bleeding (K57.30) Active confirmed Encounters Encounter Location Date Provider Diagnosis [facility] [place] Out[place] [address] [place], [place] [phone] 08/19/2023 Kenney Nelson Encounter for scre ening [...] SALTY CASTANEDA HDOB:[birth year] (69 yo M)Acc No.[id number]:08/19/2023 COLON WITH MAC Patient: SALTY AUGUSTINE Provider: Savita Nelson MD :1955 A ge:68 Y S ex:Male Date:08/19/2023 Address:[address] [place], [place] [phone] Pcp:Mathew Fay (RETIRED )MD Subjective: * Chief [...] MD Date: 0 08/19/2023 Generated for Adrianna perry/Rocio/eTransmitting on: 1 07:24 PM EDT
--- NOTE | 2024-11-27 14:21 | A.OFFVIS_ITS ---
Intake Visit Reasons: 6m/PSA/Testo Intake Note: Patient is Present for: telehealth 6m/PSA/testo Urology Medication:Tamsulosin, Tadalafil Testosterone, vitC Blood Thinners: aspirin labs done 10/31/24: PSA 0.19, testo 539 Pharmacy Delivery Driver Required: No Accompanied by: Self / Same As Patient Allergies No Known Allergies (No Known Allergies*) Allergy (Verified 11/27/24 14:22) HPI Comments Details: Chico is a very pleasant male. He is a patient of Dr. Fay. He is seen for the following urologic conditions - prostate cancer - hot flashes Six-month follow-up hypogonadism Telemedicine Evaluation 15 min Consultation [employer] Low PSA, testosterone appropriate level Responds well to tadalafil Cardiac valve surgery for severe mitral regurg TKR Mar 2022 Erectile Dysfunction Tadalafil 5 mg Hypogonadism following EXBRT Testosterone stable Labs - 01/28 T 897 P 0.24, 07/30 837 P 0.3, 03/02 323 P 0.15 42, 09/30 T 377 PSA 0.17, 04/03 0.22 143, 11/01 0.19 T550 Therapeutic history - good response to 4 pump topical testosterone 897, reduce to 2 pumps Therapy - topical therapy Prostate cancer high-grade external beam radiation 2019 2 years of hormones Prostate cancer was diagnosed by Dr. Barksdale Initial pathology Kelsie 8 and 6 Initial therapy external beam radiation at [facility] 2019 with 2 years GnRH - Last GnRH 02/27 PSA - 02/27 0.05, 05/28 <0.05, 08/27 0.1 T 13 - 12/28 T 35 P <0.1, 04/28 <0.1 75, 08/28 <0.1 72, 11/28 T 83 LH 15 Therapeutic plan [facility] Medical History (Updated 11/06/24 @ 15:48 by Thelma Prasad RN) History of pacemaker Dislocation of finger Chronic low back pain Knee pain, right HSV (herpes simplex virus) infection Essential hypertension Non-rheumatic mitral regurgitation UTI (urinary tract infection) Prostate cancer Elevated PSA BPH (benign prostatic hyperplasia) Surgical History History of total right knee replacement Status post tricuspid valve repair (~2020) Status post mitral valve repair (~2020) History of cardiac catheterization (~07/2020) History of esophagogastroduodenoscopy (EGD) H/O colonoscopy Family History Mother No problems noted. Father No problems noted. 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 Cognitive needs: No Hearing needs: No Vision needs: Yes (reading glasses) Review of Systems Const All systems reviewed & are unremarkable except as noted in HPI and below Reports no additional complaints Resp Reports no additional complaints GI Reports no additional complaints Reports as per HPI Musc Reports no additional complaints Physical Exam Telemedicine evaluation Appropriate responses Regular breathing rate and rhythm HEENT Head: Yes normal to inspection Ears: hearing grossly normal bilaterally Eyes General: appearance normal, both eyes and all related structures Neck Neck: Yes normal visual inspection Chest Chest palpation & inspection: normal inspection of the chest Resp Effort & Inspection: normal respiratory effort and able to speak in complete sentences Telehealth Telehealth Telehealth Platform: [employer] Location of provider rendering services: practice address Location of patient: address on file Patient Identification confirmed using: Name, : Yes Telehealth method: video Patient verbally consented to treatment: Yes Patient verbally consented to billing insurance company: Yes Patient informed of any privacy concerns related to visit: Yes Minutes spent on Phone/Video with Pt.: 15 Assessment & Plan Assessment & Plan (1) Prostate cancer: Comment: w/gold seed insertion 2019 - EXBRT + hormones Code(s): C61 - Malignant neoplasm of prostate Category: Medical (2) Erectile dysfunction after prostate brachytherapy: Code(s): N52.35 - Erectile dysfunction following radiation therapy Category: Medical Plan Six-month follow-up lab work office Orders: Orders Prostate Specific Antigen 5 Months E29.1 - Testicular hypofunction Testosterone, Total 5 Months E29.1 - Testicular hypofunction Medications: Refilled testosterone apply 2 pumps total and massage till dry 2 pumps topical DAILY 75 grams 5RF 28 days E29.1 - Testicular hypofunction Discontinued tamsulosin Discontinued Reason: Doctor's Order 0.4 mg PO DAILY 90 caps 3RF Patient Instructions: This note is constructed using voice recognition software. While every effort has been made to ensure accuracy generating plant superintendent errors may have been included. Imaging studies, laboratory and physical exam results were discussed and reviewed in detail. No major barriers to patient understanding were identified. An opportunity to ask questions regarding the treatment plan was provided. All questions were answered. The patient expressed understanding and agreement with the above treatment plan. The patient is aware they should contact our office by phone for worsening of their current condition or the appearance of new urologic symptoms. Compliance is encouraged with any medications and followup testing that is ordered. It is a privilege to participate in the urologic care of your patient. If you have any questions or concerns regarding treatment for the above conditions, or other urologic issues, please do not hesitate to contact me. The office telephone contact is [phone]. Sincerely, Dr Aden Pickett MD, [facility] - Urology Compassionate Specialist Care for the Genitourinary System Coding Level of Care Code Tele Est Pt Level 3 (98410) Complex EM visit Add On G2211 Diagnoses Prostate cancer C61 Erectile dysfunction after prostate brachytherapy N52.35
--- OUTSIDE RECORDS SUMMARY | 2024-11-27 19:25 | XMS_ITS | Patient Health Record ---
Author Organization [facility] Address [address] [place] [address] Care Team Providers Care Design Checker Name Role Phone Nya (RETIRED) Mathew OROURKE Primary Care Provide r Lor NelsonKenney Unavailable [phone] Allergies No Known Allergies Reason For Referral No Information Medications Medication SIG (Take, Route, Frequency, Duration) Notes Start Date End Date Status Tamsulosin HCl 0.4 MG TAKE 1 CAPSULE BY MOUTH DAILY. Oral; Duration: 90 Active Diclofenac Sodium 1 % External; Duration: 30 Active amLODIPine Besylate 5 MG Oral; Duration: 90 Active Aspirin 81 81 MG 1 tablet Orally Once a day; Duration: 30 day(s) Active Testosterone 1.62 % Transdermal; Duration: 30 Active Tadalafil 5 MG TAKE ONE TABLET BY M OUTH EVERY DAY FOR SEXUAL ACTIVITY Oral; Duration: 90 Active Metoprolol Tartrate 25 MG TAKE ONE TABLE T BY MOUTH TWICE A DAY. PLEASE KEEP YOUR APPOINTMENT ON 11/16/[address] DAY AT [facility] Oral; Duration: 90 Active Gabapentin 300 MG Oral; Duration: 90 Active Immunizations Vaccine Route Administration Date [...] Status Risk Notes Problem Colon cancer screening (982500723) Colon cancer screening (Z12.11) Active confirmed Problem Pre-procedure evaluation check (413635793) Encounter for other preprocedural examination (Z01.818) Active confirmed Problem Diverticular disease of colon (765978424) Diverticulosis of large intestine without perforation or abscess without bleeding (K57.30) Active confirmed Problem History of polyp of colon (situation) (718852854) History of colon polyps (Z86.010) Active confirmed Plan Of Treatment Pending Test Test Name Order Date Pathology 08/19/2023 Future Test Test Name Order Date COLONOSCOPY 04/29/2023 Insurance Providers Payer Name Payer Address Payer Phone Subscriber Number Group Number Insured Name Patient Relationship to Insured Coverage Start Date Coverage End Date [facility] [employer] PROFESSIONAL CLAIMS [address] [place] [address] [id number] SALTY CASTANEDA Self - patient is the insured Medical (General) History Medical History History ICD Code HTN Pacemaker Prostate cancer-XRT--2018 Denies [place],DM,CVA,Lung disease,renal dise ase BPH Colonoscopy in approx [address] George is with removal of polyp Arthritis EGD [place] [address] Stiles d revealed some mild gastritis with biopsies negative for H. pylori Urosepsis in 2017 Surgical History Surgery Date(Month/Year) Knee replacement on the right 2021 Pacemaker-[facility] 2020 Mitral and (?)aortic valve repair-[facility] 2020
== END 2024-11-27 15:05 | disposition home or self-care (01) ==
LOC: HO.HUSH 14:20
PROVIDERS: PCP Internal Medicine; Visit Provider Urology
DX: C61 Malignant neoplasm of prostate (principal); N52.35 Erectile dysfunction following radiation therapy
CPT/HCPCS: 99213

== ENCOUNTER 2024-12-13 12:15 | Day surgery (SDC) | payer BC, SELFPAY ==
--- OUTSIDE RECORDS SUMMARY | 2023-08-19 04:30 | XMS_ITS ---
Author Organization [facility] Address [address] [place] [address] Care Team Providers Care Mold Finisher Name Role Phone Nya (RETIRED) Mathew OROURKE Primary Care Provide r Kenney Aguilera Unavailable [phone] REASON FOR VISIT screening Problems Problem Type SNOMED Code ICD Code Onset Dates Problem Status W/U Status Risk Notes Problem Diverticular disease of colon (916606301) Diverticulosis of large intestine without perforation or abscess without bleeding (K57.30) Active confirmed Encounters Encounter Location Date Provider Diagnosis [facility] [address] [place], [place] [phone] 08/19/2023 Kenney Nelson Encounter for scre ening [...] SALTY CASTANEDA HDOB:[birth year] (69 yo M)Acc No.[id number]:08/19/2023 COLON WITH MAC Patient: SALTY AUGUSTINE Provider: Savita Nelson MD :1955 A ge:68 Y S ex:Male Date:08/19/2023 Address:[address] [place], [place] [phone] Pcp:Mathew Fay (RETIRED )MD Subjective: * Chief [...] 0 08/19/2023 Generated for Adrianna perry/Rocio/Janeensmitting on: 0 10/22/2024 11:54 AM EDT
--- OUTSIDE RECORDS SUMMARY | 2024-10-22 11:55 | XMS_ITS | Patient Health Record ---
Author Organization [facility] Address [address] [place] [address] Care Team Providers Care Insolvency Practitioner Name Role Phone Nya (RETIRED) Mathew OROURKE Primary Care Provide r Lor NelsonKenney Unavailable [phone] Allergies No Known Allergies Reason For Referral [...] 11/16/[address] DAY AT [facility] Oral for 90 Active Gabapentin 300 MG [...] Status Risk Notes Problem Colon cancer screening (204489663) Colon cancer screening (Z12.11) Active confirmed Problem Pre-procedure evaluation check (726263852) Encounter for other preprocedural examination (Z01.818) Active confirmed Problem Diverticular disease of colon (859029793) Diverticulosis of large intestine without perforation or abscess without bleeding (K57.30) Active confirmed Problem History of polyp of colon (situation) (883144181) History of colon polyps (Z86.010) Active confirmed Plan Of Treatment Pending Test Test Name Order Date Pathology 08/19/2023 Future Test Test Name Order Date COLONOSCOPY 04/29/2023 Insurance Providers Payer Name Payer Address Payer Phone Subscriber Number Group Number Insured Name Patient Relationship to Insured Coverage Start Date Coverage End Date [facility] [employer] PROFESSIONAL CLAIMS [address] [place] [address] [id number] SALTY CASTANEDA Self - patient is the insured Medical (General) History Medical History History ICD Code HTN Pacemaker Prostate cancer-XRT--2018 Denies MT,DM,CVA,Lung disease,renal dise ase BPH Colonoscopy in approx [address] George is with removal of polyp Arthritis EGD [place] [address] Stiles d revealed some mild gastritis with biopsies negative for H. pylori Urosepsis in 2018 Surgical History Surgery Date(Month/Year) Knee replacement on the right 2021 Pacemaker-[facility] 2020 Mitral and (?)aortic valve repair-[facility] te 2020
[2024-11-06 15:47] VITALS: BMI 17.5
--- NOTE | 2024-11-07 09:14 | HO.ANESPROP2 ---
Documented by User: Coco Valdez NP 11/09/24 08:09 HPI - Anesthesia Eval Consult details Narrative: 69yo M for Right Small Finger DIP Arthrodesis, 12/13/24 Follows [facility] [place] [place] for s/p mitral and tricuspid valve repair 09/2020, post op heart block with pacer in situ. Stable at 10/2024 office visit [facility] Active Problems Active Problems: All Active Problems Hearing loss (Acute) Preoperative cardiovascular examination (Acute) Pacemaker (Acute) Erectile dysfunction after prostate brachytherapy (Acute) Hypogonadism in male (Acute) BPH loc w urin obs/LUTS (Acute) Complete heart block (Acute) Hot flash due to medication (Acute) Dislocation of finger (Acute) Chronic low back pain (Acute) Knee pain, right (Acute) HSV (herpes simplex virus) infection (Acute) Status post tricuspid valve repair (Acute ~2020) Status post mitral valve repair (Acute ~2020) Prostate cancer (Acute) BPH (benign prostatic hyperplasia) (Acute) Essential hypertension (Acute) Non-rheumatic mitral regurgitation (Acute) Past Medical History Medical History History of pacemaker Dislocation of finger Chronic low back pain Knee pain, right HSV (herpes simplex virus) infection Essential hypertension Non-rheumatic mitral regurgitation UTI (urinary tract infection) Prostate cancer Elevated PSA BPH (benign prostatic hyperplasia) Family History Family History Mother No problems noted. Father No problems noted. Other AA (alcohol abuse) HTN (hypertension) Family history of problems with anesthesia: No Surgical History Surgical History History of total right knee replacement Status post tricuspid valve repair (~2020) Status post mitral valve repair (~2020) History of cardiac catheterization (~07/2020) History of esophagogastroduodenoscopy (EGD) H/O colonoscopy History of Problems with Anesthesia: No Social History Social History Housing: Apartment Alcohol intake: current Alcohol intake frequency: holidays/special occasions only Patient Tobacco Use Status: Former Tobacco user e-Cigarette/Vaping Use: Former Use Use of substances other than those prescribed or required for medical reasons: Yes Substance Use Type Other:: ld smoked 2 days ago Substance Use Frequency: Occasionally Are you DNR?: No Advance Directives: No Advance Directives Information Provided: Yes service: No Current occupational status: employed 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 Cognitive needs: No Hearing needs: No Vision needs: Yes (reading glasses) Meds Allergies Allergy/AdvReac Type Severity Reaction Status Date / Time No Known Allergies (No Known Allergy Verified 11/27/24 14:22 Allergies*) Home Medications ?Medication ?Instructions ?Recorded ?Confirmed ?Last Taken ?Type aspirin 81 mg tablet,delayed 81 mg PO DAILY 10/20/20 11/06/24 Unknown History release acyclovir 400 mg tablet 400 mg PO BID 01/20/21 11/06/24 Unknown History amlodipine 5 mg tablet 5 mg PO DAILY 10/11/24 11/06/24 Unknown History ascorbic acid (vitamin C) 500 mg 500 mg PO DAILY 10/11/24 11/06/24 Unknown History capsule Exam Height,Weight and Vital Signs: Height 6 ft 3 in Weight 63.503 kg Pertinent Lab Results Pertinent Lab Results: Laboratory Tests 10/31/24 13:57 WBC 3.1 L Hgb 13.5 L Hct 41.1 L Plt Count 237 Sodium 144 Potassium 4.6 Chloride 107 Carbon Dioxide 32 H BUN 17 H Creatinine 1.28 Narrative Narrative: EKG 10/2024 Details: EKG with AV dual paced rhythm at 60/Min. Cardiac Device Check Details: Date of service- 10/27/2024 ; Battery life >8 years; normal lead parameters; AP 23%; GRANTS SPECIALIST 99%; no significant arrhythmias. Overall normal device function. ECHO 2023 Conclusions: - The left ventricular systolic function is normal. The calculated ejection fraction is 61% by biplane method. - s/p mitral valve repair. Normal valvular function. Assessment and Plan Assessment Anesthesia Assessment: Chart Reviewed Final Anesthetic Review Family History of Problems with Anesthesia: No History of Problems with Anesthesia: No Documented by User: Mulu Truong MD 12/13/24 14:05 [facility] Past Medical History Medical History History of pacemaker Dislocation of finger Chronic low back pain Knee pain, right HSV (herpes simplex virus) infection Essential hypertension Non-rheumatic mitral regurgitation UTI (urinary tract infection) Prostate cancer Elevated PSA BPH (benign prostatic hyperplasia) Family History Family History Mother No problems noted. Father No problems noted. Other AA (alcohol abuse) HTN (hypertension) Surgical History Surgical History History of total right knee replacement Status post tricuspid valve repair (~2020) Status post mitral valve repair (~2020) History of cardiac catheterization (~07/2020) History of esophagogastroduodenoscopy (EGD) H/O colonoscopy Social History Social History Housing: Apartment Alcohol intake: current Alcohol intake frequency: holidays/special occasions only Patient Tobacco Use Status: Former Tobacco user e-Cigarette/Vaping Use: Former Use Use of substances other than those prescribed or required for medical reasons: Yes Substance Use Type Other:: ld smoked 2 days ago Substance Use Frequency: Occasionally Are you DNR?: No Advance Directives: No Advance Directives Information Provided: Yes service: No Current occupational status: employed 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 Cognitive needs: No Hearing needs: No Vision needs: Yes (reading glasses) Meds Allergies Allergy/AdvReac Type Severity Reaction Status Date / Time No Known Allergies (No Known Allergy Verified 11/27/24 14:22 Allergies*) Home Medications ?Medication ?Instructions ?Recorded ?Confirmed ?Last Taken ?Type aspirin 81 mg tablet,delayed 81 mg PO DAILY 10/20/20 11/06/24 Unknown History release acyclovir 400 mg tablet 400 mg PO BID 01/20/21 11/06/24 Unknown History amlodipine 5 mg tablet 5 mg PO DAILY 10/11/24 11/06/24 Unknown History ascorbic acid (vitamin C) 500 mg 500 mg PO DAILY 10/11/24 11/06/24 Unknown History capsule Exam Airway Mallampati Class: II TM Dist: >3cm Neck ROM: Full Heart: rrr Lungs: cta Assessment and Plan Assessment Anesthesia Assessment: Anesthesia Plan Discussed Final Anesthetic Review NPO: Yes ASA Class: II Final Preanesthetic Review: No Changes in Pt Med Stat, Meds/Allgs Chart Reviewed, Consent Obtained/Reviewed and Anes Risks/Benef Reviewed Patient Risk: Low Procedure Risk: Low Anesthetic Plan Anesthetic Plan: GA and Agree w/ Assess. and Plan Disposition: Standard PACU
[2024-12-13] VITALS (7 sets, daily range): BP systolic 105–138; BP diastolic 58–80; PULSE 60–74; RESP 13–18; TEMP 36.6–36.9; O2SAT 95–99; BMI 17.3
--- NOTE | ~2024-12-13 | FL_ITS ---
EXAMINATION: XR FLUOROSCOPY WITH IMAGES CLINICAL INFORMATION: Right small finger DIP arthrodesis COMPARISON: None available. TECHNIQUE: Fluoroscopy time: 53 seconds DAP: 0.06 mGycm2 Images: 7 FINDINGS: Fluoroscopy provided in the operating room. Multiple images demonstrate arthrodesis of a small finger DIP joint . FL/FL guidance in OR IMPRESSION: Fluoroscopy provided in the operating room. See surgical report for details. Electronically signed by: Raul Zafar MD 12/14/2024 10:54 AM JESSICA
--- NOTE | 2024-12-13 12:46 | P.OP_ITS ---
Operative Note Operative Note Date of Service: 12/13/24 Narrative: Operative Note Narrative: Preop diagnosis: 1. 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 Implants: AcuTrak 2 micro headless compression screw, 20 mm Tourniquet time: 60 minutes EBL: 5.0 ml Specimen: None Drains: None Complications: None Disposition: Brought to the recovery room in stable condition Plan: Follow-up in 10-14 days for wound check, suture removal and pre clinic radiographs I would put him in a finger spica cast for 4 weeks. After that if there is some evidence of healing we can be transition to a finger splint and work on range of motion Indications: The patient is a 69 year old man with right small finger D IP joint instability and arthritis . The risks and benefits of operative treatment, including but not limited to risk of damage to blood vessels, nerves, tendons, infection, recurrence, persistent pain or numbness, incomplete resolution of preoperative symptoms, or need for further surgery were discussed with the patient and they wished to proceed with surgery. Procedure: Once consent was obtained patient was brought back to the operating suite and placed in the operating table in a supine position. . Perioperative antibiotics and anesthesia was administered by the anesthesia team. A tourniquet was applied to the proximal aspect of the right upper extremity and the limb was prepped and draped in a standard surgical fashion. The limb was elevated exsanguinated with Esmarch bandage and the tourniquet inflated to 250 mm of mercury for a total tourniquet time of 60 minutes. I made a 2 cm longitudinally oriented S shaped incision centered over the dorsal aspect of the right small finger D IP joint. The incision was made through the skin to the subcutaneous tissues using a 15. Blade. I then dissected down to the level of the extensor tendon and the D IP joint. The extensor tendon was incised transversely over the D IP joint, thus revealing the joint. There was evidence of arthritic changes, and again he has significant D IP joint instability. The remaining arthritic cartilage was removed from both the middle phalanx and distal phalanx using a a rongeur. There was bone loss on the distal ulnar end of the middle phalanx. I used the rongeur to cut an excise some of the radial distal side of the middle phalanx to level the joint line. I also used a rongeur to remove some of the osteophytes from about the base of the distal phalanx, and to try to level the joint surface of the distal phalanx. I then used a 0.035 K-wire to fenestrate the subchondral bone both on the distal aspect of the middle phalanx and on the base of the distal phalanx to facilitate bony healing. Once satisfied with this the wound was irrigated and the joint reduced. I then used the guidewire from the [employer] AcuTrak 2 micro headless compression screw and passive through the tip of the finger. This was advanced retrograde through the distal phalanx and then across the D IP joint down to the base of the middle phalanx. Once satisfied with our reduction and placement of this K-wire on fluoroscopic images, I selected the longest AcuTrak 2 micro screw available which was a 20 mm screw.. I then used the long narrow micro Reamer , advancing it retrograde over the guidewire across the distal phalanx, the D IP joint and into the middle phalanx. I then used the short fat Reamer on the near cortex at the tip of the finger. Holding the D IP joint in a reduced position, I then advanced the 20 mm AcuTrak 2 micro headless compression screw retrograde along the guidewire obtaining good compression at the D IP joint. Once satisfied with the position of the arthrodesis, the compression screw, and was sure that we had no malrotation , multiple fluoroscopic images were taken and the guidewire was removed. At this point the tourniquet was deflated and hemostasis obtained with a brief period of local pressure and bipolar electrocautery. The wound was copiously irrigated with normal saline. The skin edges were reapproximated with 4-0 nylon suture. An ulnar nerve block was performed infiltrating about the ulnar nerve at the wrist with some 1% lidocaine with epinephrine for postop pain control. A sterile dressing and an ulnar gutter splint including the small and ring fingers extending up to the forearm was then applied. The patient appears to have tolerated the procedure well and with no complications. All digits were well vascularized conclusion of the case.
--- NOTE | 2024-12-13 12:46 | MHC.SHP ---
Pre-Procedural Eval Section A - 24 Hr Update-Section A only Date of Service: 12/13/24 The patient is an INPATIENT: No Changes since office visit: No Cold of Flu in the past 2 weeks, No New Medical Problems, No Changes in Medication and No Patient answered all questions The patient has been examined within 24 hours of the surgical procedure. The History & Physical has been completed within 30 days and I have reviewed it.: Yes Section B - Complete if H&P > 30 days Chief Complaint: Subluxation of proximal interphalangeal joint of r Allergies: Allergies Allergy/AdvReac Type Severity Reaction Status Date / Time No Known Allergies (No Known Allergy Verified 11/27/24 14:22 Allergies*) Plan I have reviewed the history and physical and performed a pertinent physical examination on my patient. No changes have occurred unless specified. Time Spent With Patient Time: Total time managing care of this patient today ____ minutes.
[2024-12-13] MEDS: Lactated Ringers 1,000 ML 100 ML IVCONT (13:29)
== END 2024-12-13 17:02 | disposition home or self-care (01) ==
PROVIDERS: PCP Internal Medicine; Visit Provider Orthopaedic Surgery
PROC: (CPT 26860; principal; 2024-12-13 13:50)
DX: M25.341 Other instability, right hand (principal); M19.041 Primary osteoarthritis, right hand; M25.741 Osteophyte, right hand; I10 Essential (primary) hypertension; I44.2 Atrioventricular block, complete; I34.0 Nonrheumatic mitral (valve) insufficiency; Z95.0 Presence of cardiac pacemaker; C61 Malignant neoplasm of prostate; G89.29 Other chronic pain; M54.50 Low back pain, unspecified; Z96.651 Presence of right artificial knee joint; Z98.890 Other specified postprocedural states; Z87.891 Personal history of nicotine dependence
CPT/HCPCS: 26860; 26236; C1713; J0131; J0690; J1100; J1885; J2003; J2004; J2250; J2371; J2405; J2704; J3010

== ENCOUNTER → 2024-12-13 12:15 | Outpatient (BNV) | payer BC, SELFPAY | PROVIDERS: PCP Internal Medicine; Visit Provider Orthopaedic Surgery | DX: M25.341 Other instability, right hand (principal); M19.041 Primary osteoarthritis, right hand | CPT/HCPCS: 26860 ==

== ENCOUNTER 2024-12-26 08:07 | Outpatient (REF) | payer BC, SELFPAY ==
--- OUTSIDE RECORDS SUMMARY | 2023-08-19 03:30 | XMS_ITS ---
Author Organization [facility] Address [address] [place] [address] Care Team Providers Care Fire Prevention Inspector Name Role Phone Nya (RETIRED) Mathew OROURKE Primary Care Provide r Kenney Aguilera Unavailable [phone] REASON FOR VISIT screening Problems Problem Type SNOMED Code ICD Code Onset Dates Problem Status W/U Status Risk Notes Problem Diverticular disease of colon (534849712) Diverticulosis of large intestine without perforation or abscess without bleeding (K57.30) Active confirmed Encounters Encounter Location Date Provider Diagnosis [facility] [place] [address] [place], [place] [phone] 08/19/2023 Kenney Nelson Encounter for scre ening colonoscopy Z12.11 ; Colon polyps K63.5 ; Radiation proctitis K62.7 ; Diverticulosis of large intestine without perforation or abscess without bleeding K57.30 and Other hemorrhoids K64.8 Assessments Encounter Date Diagnosis (ICD Code) Assessment Notes Treatment Notes Treatment Clinical Notes Section Notes 08/19/2023 Encounter for screening colonoscopy (ICD-10 - Z12.11) 08/19/2023 Colon polyps (ICD-10 - K63.5) 08/19/2023 Radiation proctitis (ICD-10 - K62.7) 08/19/2023 Diverticulosis of large intestine without perforation or abscess without bleeding (ICD-10 - K57.30) 08/19/2023 Other hemorrhoids (ICD-10 - K64.8) Plan Of Treatment No Information Progress Notes * SALTY CASTANEDA HDOB:[birth year] (69 yo M)Acc No.[id number]:08/19/2023 COLON WITH MAC Patient: SALTY AUGUSTINE Provider: Savita Nelson MD :1955 A ge:68 Y S ex:Male Date:08/19/2023 Address:[address] [place], [place] [phone] Pcp:Mathew Fay (RETIRED )MD Subjective: * Chief Complaints: * S creening Assessment: * Assessment: 1. E ncounter for screening colonoscopy - Z12.11 (Primary) 2 . C olon polyps - K63.5 3 . R adiation proctitis - K62.7 4 . D iverticulosis of large intestine without perforation or abscess without bleeding - K57.30 5 . Other hemorrhoids - K64.8 Plan: * Procedure Codes: 4 5385 LESION REMOVAL COLONOSCOPY, Modifiers: PT Billing Information: * Procedure Codes: 69431 LESION REMOVAL COLONOSCOPY. Modifiers: PT * The named appointment provid er may or may not be the originator of this progress note, and it is not deemed complete until electronically signed by the appointment provider. Sign off status: Pending * Provider: Savita Nelson MD Date: 0 08/19/2023 Generated for Adrianna perry/Rocio/Leydaitting on: 1 02/27/2024 08:31 AM EST
--- NOTE | ~2024-12-26 | XR_ITS ---
EXAMINATION: XR HAND 3 OR MORE VIEWS RIGHT HISTORY: M79.641 - Pain in right hand COMPARISON: Comparison is made with the prior examination dated 05/22/2024. FINDINGS: Three views of the right hand are submitted. Osseous mineralization is normal. The patient is status post fusion of the 5th DIP joint with a single screw. The remaining joint spaces are maintained. There is no acute fracture. The soft tissues are unremarkable. XR/XR hand RT min 3V IMPRESSION: Status post fusion of the 5th DIP joint. Electronically signed by: Kenney Yanez MD 12/26/2024 01:13 PM JESSICA
--- OUTSIDE RECORDS SUMMARY | 2024-12-27 08:31 | XMS_ITS | Patient Health Record ---
Author Organization [facility] Address [address] [place] [address] Care Team Providers Care Channel Sales Manager Name Role Phone Nya (RETIRED) Mathew OROURKE Primary Care Provide r Lor NelsonKenney Unavailable [phone] Allergies No Known Allergies Reason For Referral [...] APPOINTMENT ON 11/16/[address] 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 alcohol Problems Problem Type SNOMED Code ICD Code Onset Dates Problem Status W/U Status Risk Notes Problem Colon cancer screening (810112919) Colon cancer screening (Z12.11) Active confirmed Problem Pre-procedure evaluation check (691644344) Encounter for other preprocedural examination (Z01.818) Active confirmed Problem Diverticular disease of colon (110871797) Diverticulosis of large intestine without perforation or abscess without bleeding (K57.30) Active confirmed Problem History of polyp of colon (situation) (530697269) History of colon polyps (Z86.010) Active confirmed Plan Of Treatment Pending Test Test Name Order Date Pathology 08/19/2023 Future Test Test Name Order Date COLONOSCOPY 04/29/2023 Insurance Providers Payer Name Payer Address Payer Phone Subscriber Number Group Number Insured Name Patient Relationship to Insured Coverage Start Date Coverage End Date [facility] [employer] PROFESSIONAL CLAIMS [address] [place] [address] [id number] SLATY CASTANEDA Self - patient is the insured Medical (General) History Medical History History ICD Code HTN Pacemaker Prostate cancer-XRT--2018 Denies [place],DM,CVA,Lung disease,renal dise ase BPH Colonoscopy in approx [address] George is with removal of polyp Arthritis EGD [place] [address] Stiles d revealed some mild gastritis with biopsies negative for H. pylori Urosepsis in 2018 Surgical History Surgery Date(Month/Year) Knee replacement on the right 2021 Pacemaker-[facility] 2020 Mitral and (?)aortic valve repair-[facility] 2020
== END 2024-12-26 08:08 | disposition home or self-care (01) ==
LOC: HO.HOSX 08:07
DX: M79.641 Pain in right hand (principal); Z98.1 Arthrodesis status
CPT/HCPCS: 73130

== ENCOUNTER 2024-12-26 12:48 | Outpatient (AMB) | payer BC, SELFPAY ==
--- OUTSIDE RECORDS SUMMARY | 2023-08-19 03:30 | XMS_ITS ---
Author Organization [facility] Address [address] [place] [address] Care Team Providers Care Certified Midwife Name Role Phone Nya (RETIRED) Mathew OROURKE Primary Care Provide r Kenney Aguilera Unavailable [phone] REASON FOR VISIT screening Problems Problem Type SNOMED Code ICD Code Onset Dates Problem Status W/U Status Risk Notes Problem Diverticular disease of colon (451675176) Diverticulosis of large intestine without perforation or abscess without bleeding (K57.30) Active confirmed Encounters Encounter Location Date Provider Diagnosis [facility] Outpatient [address] [place], [place] [phone] 08/19/2023 Kenney Nelson Encounter for scre ening [...] SALTY CASTANEDA HDOB:[birth year] (69 yo M)Acc No.[id number]:08/19/2023 COLON WITH MAC Patient: SALTY AUGUSTINE Provider: Savita Nelson MD :1955 A ge:68 Y S ex:Male Date:08/19/2023 Address:[address] [place], [place] [phone] Pcp:Mathew Fay (RETIRED )MD Subjective: * Chief [...] Modifiers: PT Billing Information: * Procedure Codes: 02354 LESION REMOVAL COLONOSCOPY. Modifiers: PT * The named appointment provid er may or may not be the originator of this progress note, and it is not deemed complete until electronically signed by the appointment provider. Sign off status: Pending * Provider: Savita Nelson MD Date: 0 08/19/2023 Generated for Adrianna perry/Rocio/Janeensmitting on: 1 02/27/2024 12:32 AM EST
--- NOTE | 2024-12-26 13:03 | MHC.OFFVIS ---
Vital Signs 12/26/24 13:10 Height 6 ft 3 in Weight 138 lb BMI 17.2 Intake Visit Reasons: PO RT SF DIP arthrodesis 12/13/24 AR Intake Note: [place] is a 69 year old right hand dominant male who presents today for a Post-Operative Visit status post Right Small Finger DIP Joint Arthrodesis performed by Dr. Hendrix on 12/13/24. Patient reports he is doing well, only experiencing pain when he accidentally bumps it. He is managing with Ibuprofen as needed. He denies any numbness, tingling, finger locking. Allergies No Known Allergies (No Known Allergies*) Allergy (Verified 12/26/24 13:09) HPI HPI PO RT SF DIP arthrodesis 12/13/24 AR: Details: [place] is a 69 year old right hand dominant male who presents today for a Post-Operative Visit status post Right Small Finger DIP Joint Arthrodesis performed by Dr. Hendrix on 12/13/24. Patient reports he is doing well, only experiencing pain when he accidentally bumps it. He is managing with Ibuprofen as needed. He denies any numbness, tingling, finger locking. Patient states that his pain has already improved significantly from prior to surgery [facility] Medical History History of pacemaker Dislocation of finger Chronic low back pain Knee pain, right HSV (herpes simplex virus) infection Essential hypertension Non-rheumatic mitral regurgitation UTI (urinary tract infection) Prostate cancer Elevated PSA BPH (benign prostatic hyperplasia) Surgical History History of total right knee replacement Status post tricuspid valve repair (~2020) Status post mitral valve repair (~2020) History of cardiac catheterization (~07/2020) History of esophagogastroduodenoscopy (EGD) H/O colonoscopy Family History Mother No problems noted. Father No problems noted. 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 Neuro: Normal sensation of the tips of all digits of the right hand at this time Vascular: Cap refill brisk Pain: No Tenderness to palpation about incision sites on right small finger Skin: Well approximated and well healing incision sites noted on the dorsal aspect of the distal phalanx of the right small finger, as well as on the distal tip of the right small finger No lacerations or abrasions. General: No ecchymosis, erythema, or evidence of infection. Psych: Appears grossly normal Affect normal Attitude cooperative Results Reviewed Results Reviewed: X-rays obtained in the office today and independently reviewed by me, Tee Mcdowell PA-C, demonstrate status post arthrodesis of the D IP joint of the right small finger with all orthopedic hardware in place and in satisfactory clinical alignment. Assessment & Plan Assessment & Plan (1) Status post fusion of joint of finger: Code(s): Z98.1 - Arthrodesis status Category: Surgical Plan 1. Status post arthrodesis of the IP joint of right small finger DOS 12/13/2024 Patient appears to be recovering well postoperatively Patient is educated about the typical recovery course Sutures removed, Steri-Strips applied Patient is placed into a 2 finger spica cast involving the ring and small fingers of the right hand Patient is educated on proper cast care and precautions Follow-up in 4 weeks with repeat x-rays for reassessment, anticipate cast removal at that time, sooner with any acute concerns Orders: Orders XR hand RT min 3V Today M79.641 - Pain in right hand Coding Level of Care Code Global (00563) Diagnoses Status post fusion of joint of finger Z98.1
[2024-12-26 13:10] VITALS: BMI 17.2
--- OUTSIDE RECORDS SUMMARY | 2024-12-27 00:32 | XMS_ITS | Patient Health Record ---
Author Organization [facility] Address [address] [place] [address] Care Team Providers Care Grain Packer Name Role Phone Nya (RETIRED) Mathew OROURKE Primary Care Provide r Lor NelsonKenney Unavailable [phone] Allergies No Known Allergies Reason For Referral No Information Medications Medication SIG (Take, Route, Frequency, Duration) Notes Start Date End Date Status Tamsulosin HCl 0.4 MG Capsule TAKE 1 CAPSULE BY MOUTH DAILY. Oral; Duration: 90 Active Diclofenac Sodium 1 % Gel External; Duration: 30 Active amLODIPine Besylate 5 MG Tablet Oral; Duration: 90 Active Aspirin 81 81 MG Tablet Delayed Release 1 tablet Orally Once a day; Duration: 30 day(s) Active Testosterone 1.62 % Gel Transdermal; Duration: 30 Active Tadalafil 5 MG Tablet TAKE ONE TABLET BY MOUTH EVERY DAY FOR SEXUAL ACTIVITY Oral; Duration: 90 Active Metoprolol Tartrate 25 MG Tablet TAKE ONE TABLET BY MOUTH TWICE A DAY. PLEASE KEEP YOUR APPOINTMENT ON 11/16/[address] DAY AT [facility] Oral; Duration: 90 Active Gabapentin 300 MG Capsule Oral; Duration: 90 Active Immunizations Vaccine Route Administration Date Status Comme nts Influenza Unknown 12/28/2022 Administered Social History Tobacco Use: Social History Observation Description Date Details (start date - stop date) Never Smoker NA - NA Social History Drugs/Alcohol: Social Info Question Answer Notes Alcohol Screen Did you have a drink containing alcohol in the past year? Yes How often did you have a drink containing alcohol in the past year? 2 to 4 times a month (2 points) How many drinks did you have on a typical day when you were drinking in the past year? 3 or 4 drinks (1 point) How often did you have 6 or more drinks on one occasion in the past year? 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 alcohol Problems Problem Type SNOMED Code ICD Code Onset Dates Problem Status W/U Status Risk Notes Problem Colon cancer screening (895680276) Colon cancer screening (Z12.11) Active confirmed Problem Pre-procedure evaluation check (273269630) Encounter for other preprocedural examination (Z01.818) Active confirmed Problem Diverticular disease of colon (811932060) Diverticulosis of large intestine without perforation or abscess without bleeding (K57.30) Active confirmed Problem History of polyp of colon (situation) (953395900) History of colon polyps (Z86.010) Active confirmed Plan Of Treatment Pending Test Test Name Order Date Pathology 08/19/2023 Future Test Test Name Order Date COLONOSCOPY 04/29/2023 Insurance Providers Payer Name Payer Address Payer Phone Subscriber Number Group Number Insured Name Patient Relationship to Insured Coverage Start Date Coverage End Date [facility] [employer] PROFESSIONAL CLAIMS [address] [place] [address] [phone] [id number] SALTY CASTANEDA Self - patient is the insured Medical (General) History Medical History History ICD Code HTN Pacemaker Prostate cancer-XRT--2018 Denies [place],DM,CVA,Lung disease,renal dise ase BPH Colonoscopy in approx [address] George is with removal of polyp Arthritis EGD in [address] Stiles d revealed some mild gastritis with biopsies negative for H. pylori Urosepsis in 2018 Surgical History Surgery Date(Month/Year) Knee replacement on the right 2021 Pacemaker-[facility] 2020 Mitral and (?)aortic valve repair-[facility] 2020
== END 2024-12-26 13:55 | disposition home or self-care (01) ==
LOC: HO.HOS 12:48
PROVIDERS: PCP Internal Medicine
DX: Z98.1 Arthrodesis status (principal)
CPT/HCPCS: 99024

== ENCOUNTER → 2024-12-26 12:49 | Outpatient (BNV) | payer BC, SELFPAY | PROVIDERS: Visit Provider Radiology Diagnostic Radiology | DX: M79.641 Pain in right hand (principal) | CPT/HCPCS: 73130 ==

== ENCOUNTER 2025-01-14 15:07 | Outpatient (AMB) | payer BC, SELFPAY ==
--- NOTE | 2025-01-14 15:08 | A.OFFPC_ITS ---
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 Required: No Accompanied by: Self / Same As Patient Allergies No Known Allergies (No Known Allergies*) Allergy (Verified 01/22/25 10:27) Medication List - Last Reconciled 02/18/25 by SUSY Cedeño acyclovir 400 mg PO BID amlodipine 5 mg PO DAILY amoxicillin 2,000 mg (4 x 500 mg) PO ONCE ascorbic acid (vitamin C) 500 mg PO DAILY aspirin 81 mg PO DAILY diclofenac sodium 1% 4 grams topical QID gabapentin 300 mg PO BEDTIME lidocaine 5% patches topical metoprolol tartrate 37.5 mg (1.5 x 25 mg) PO BID 90 days tadalafil 5 mg PO DAILY 90 days tamsulosin 0.4 mg PO DAILY 90 days testosterone 2 pumps topical DAILY 28 days Tobacco use date assessed: 07/05/24 Fall risk assessment: No Falls in past year Last assessed Fall Risk: 01/14/25 Dental Screening Dental Screen Date: 07/05/24 HPI HPI Comments History of Present Illness Details History of Present Illness The patient is a 69 year old male with history of heart disease with valvular repairs and pace maker in place, knee pain, low back pain, HSV, history of prostate Cancer, and injury to right 5th finge presenting for a follow-up visit, post-operative care for a finger surgery, and medication management. He recently underwent finger surgery where a joint was removed, and he is currently healing with a cast which is expected to be removed around the th or of the month. The patient requires prophylactic antibiotics before dental procedures and used his last prescription for a recent filling. He has an upcoming dental cleaning in approximately three months. He is followed by a process excellence manager, Dr. Noonan, for his pacemaker, which was checked recently and was functioning well. The patient also sees Dr. Pickett and has an upcoming appointment in May, for which he will need blood work done beforehand. He takes medication for urinary frequency. Medical History: - Status post pacemaker implantation - Benign Prostatic Hyperplasia - History of COVID-19 Surgical History: - Recent finger surgery with joint remov al Medications: - Unspecified medication for benign pros tatic hyperplasia - Amoxicillin as needed for dental proph ylaxis Health Maintenance - Follow-up with process excellence manager, Dr. Inga corona, is scheduled for next month for pacemaker management. - Follow-up with Dr. Pickett is scheduled for May. - Dental cleaning scheduled in [facility] three months. - Requires prophylactic antibiotics for dental procedures. Social History - Employment: The patient is out of work and preparing for jail. Results - Device Check: Pacemaker check was rece ntly completed and results were good. Patient was informed and verbally consented to the use of an ambient scribe for clinic note documentation during this visit. [facility] Medical History (Updated 02/18/25 @ 09:06 by SUSY Cedeño) Anemia BPH (benign prostatic hyperplasia) Chronic low back pain Dislocation of finger Elevated PSA Essential hypertension History of pacemaker HSV (herpes simplex virus) infection Knee pain, right Non-rheumatic mitral regurgitation Prostate cancer UTI (urinary tract infection) Surgical History (Updated 12/26/24 @ 15:05 by SUSY Ford) H/O colonoscopy History of cardiac catheterization (~07/2020) History of esophagogastroduodenoscopy (EGD) History of total right knee replacement Status post mitral valve repair (~2020) Status post tricuspid valve repair (~2020) Family History Mother No problems noted. Father No problems noted. 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 Kenney Man, Paris Gomez, Mio Perez and colleagues, with an educational elli from [employer]. Review of Systems Narrative CONSTITUTIONAL Negative HEAD/NECK Negative EAR/NOSE/MOUTH/THROAT Negative RESPIRATORY Negative CARDIOVASCULAR Negative GASTROINTESTINAL Negative MUSCULOSKELETAL Healing from recent finger surgery NEUROLOGICAL Negative PSYCHIATRIC Negative Physical exam (Primary Care) Vital Signs: Last Vital Signs Temp 97.7 F 01/14/25 15:16 Pulse 64 01/14/25 15:16 Resp 18 01/14/25 15:16 BP 124/56 L 01/14/25 15:16 Pulse Ox 98 01/14/25 15:16 Oxygen Delivery Method Room Air 01/14/25 15:16 BMI result Body Mass Index 20.1 GENERAL Well developed, Well nourished, in no apparent distress HEENT Head-Normocephalic Neck- Supple, No lymphadenopathy, thyroid WNL RESPIRATORY Normal I:E, Clear to auscultation CARDIOVASCULAR Regular, rate and rhthym, No murmurs or rubs GASTROINTESTINAL Soft, nontender, normal bowel sounds, no masses NEUROLOGICAL Gait normal PSYCHIATRIC Oriented to person, place and time Mood and affect WNL Appearance WNL Speech WNL Thought processes WNL Tobacco/Smoking Status: Tobacco use Status Tobacco use date assessed 07/05/24 01/14/25 15:10 Patient Tobacco Use Status Former Tobacco user 01/14/25 15:10 e-Cigarette/Vaping Use Former Use 01/14/25 15:10 Thrive Assessment: Date of Thrive Assessment Date Thrive assessed 07/05/24 01/14/25 15:10 Narrative Physical Exam - Cardiovascular: Auscultation clear. - Respiratory: Lungs clear to auscultation. - Extremities: Cast present on finger. Coding Level of Care Code Established Pt Est Pt Level 4 (96094) Established Pt Add On Problem Visit Only Patient Type Established Diagnoses Essential hypertension I10 Pacemaker Z95.0 Benign prostatic hyperplasia, unspecified whether lower urinary tract symptoms present N40.0 Lower urinary tract symptom presence: unspecified whether lower urinary tract symptoms present Status post mitral valve repair Z98.890 Status post tricuspid valve repair Z98.890 Time Spent (min) 30 Comment Time spent on chart review, H&P, Patient education and orders. Assessment & Plan Assessment & Plan (1) Essential hypertension: Comment: BP today was 124/56 Code(s): I10 - Essential (primary) hypertension Category: Medical Plan: Controlled. Will get labs. Patient will continue current medications. Will monitor. Patient will follow up in 6 months. (2) Pacemaker: Code(s): Z95.0 - Presence of cardiac pacemaker Category: Medical Plan: Will follow up with cardiology (3) BPH (benign prostatic hyperplasia): Code(s): N40.0 - Benign prostatic hyperplasia without lower urinary tract symptoms Category: Medical Qualifiers: Lower urinary tract symptom presence: unspecified whether lower urinary tract symptoms present Qualified Code(s): N40.0 - Benign prostatic hyperplasia without lower urinary tract symptoms Plan: Patient to follow up with Urology (4) Status post mitral valve repair: Onset Date: ~2020 Code(s): Z98.890 - Other specified postprocedural states Category: Surgical Plan: Rx given for Dental Prophylaxis (5) Status post tricuspid valve repair: Onset Date: ~2020 Code(s): Z98.890 - Other specified postprocedural states Category: Surgical Plan: Rx given for Dental Prophylaxis Plan Plan Patient was informed and verbally consented to the use of an ambient scribe for clinic note documentation during this visit. 1. Prophylactic Antibiotics For Dental Procedures The patient requires prophylactic antibiotics for dental procedures and used his last course for a recent filling. He has a cleaning scheduled in about three months. A new prescription for antibiotics will be sent to his pharmacy to have on hand for his next appointment. 2. Follow-Up Orders for additional blood tests, including kidney function, a complete blood count, and an iron level, will be placed. These can be drawn at the same time as the labs for his appointment with Dr. Pickett. A follow-up appointment will be scheduled in six months. Discussion Notes I discussed the plan to order additional blood tests, which include a check of his kidney function, blood count, and iron levels. I informed the patient that these labs can be done at the same time as the ones required for his upcoming appointment with Dr. Pickett. I will send a prescription for prophylactic antibiotics to his pharmacy for him to have ready for his next dental appointment. We scheduled a follow-up appointment in six months. Patient Instructions - An order for blood tests has been placed in the computer. - You can have these blood tests (for kidney function, blood count, and iron) done at the same time you get your blood drawn for your appointment with Dr. Pickett. - A prescription for antibiotics for your dental appointments will be sent to y our pharmacy for you to have at home. - Please see the commercial front load driver to schedule a follow-up appointment with me in six months. Orders: Orders Comprehensive Met. Panel 01/14/25 I10 - Essential (primary) hypertension TSH reflex Free T4 01/14/25 I10 - Essential (primary) hypertension, E29.1 - Testicular hypofunction Complete Blood Count no Diff 01/14/25 D64.9 - Anemia, unspecified Ferritin 01/14/25 D64.9 - Anemia, unspecified Medications: New amoxicillin 2,000 mg (4 x 500 mg) PO ONCE 4 caps 2RF one hour before dental work
[2025-01-14 15:16] VITALS: BP 124/56; PULSE 64; RESP 18; TEMP 36.5; O2SAT 98; BMI 20.1
== END 2025-01-14 15:36 | disposition home or self-care (01) ==
LOC: HO.HMCHD 15:07
PROVIDERS: PCP Physician Assistant Medical; Visit Provider Physician Assistant Medical
DX: I10 Essential (primary) hypertension (principal); Z95.0 Presence of cardiac pacemaker; N40.0 Benign prostatic hyperplasia without lower urinary tract symptoms; Z98.890 Other specified postprocedural states

== ENCOUNTER 2025-01-22 08:02 | Outpatient (REF) | payer BC, SELFPAY ==
--- OUTSIDE RECORDS SUMMARY | 2023-08-19 03:30 | XMS_ITS ---
Author Organization [facility] Address [address] [place] [address] Care Team Providers Care Network Professional Name Role Phone Nya (RETIRED) Mathew OROURKE Primary Care Provide r Kenney Aguilera Unavailable [phone] REASON FOR VISIT screening Problems Problem Type SNOMED Code ICD Code Onset Dates Problem Status W/U Status Risk Notes Problem Diverticular disease of colon (839085990) Diverticulosis of large intestine without perforation or abscess without bleeding (K57.30) Active confirmed Encounters Encounter Location Date Provider Diagnosis [facility] Outpatient [address] [place], [place] [phone] 08/19/2023 Kenney Nelson Encounter for scre ening [...] SALTY CASTANEDA HDOB:[birth year] (69 yo M)Acc No.[id number]:08/19/2023 COLON WITH MAC Patient: SALTY AUGUSTINE Provider: Savita Nelson MD :1955 A ge:68 Y S ex:Male Date:08/19/2023 Address:[address] [place], [place] [phone] Pcp:Mathew Fay (RETIRED )MD Subjective: * Chief [...] Modifiers: PT Billing Information: * Procedure Codes: 46042 LESION REMOVAL COLONOSCOPY. Modifiers: PT * The named appointment provid er may or may not be the originator of this progress note, and it is not deemed complete until electronically signed by the appointment provider. Sign off status: Pending * Provider: Savita Nelson MD Date: 0 08/19/2023 Generated for Adrianna perry/Rocio/Leydaitting on: 1 03/25/2024 08:13 AM EST
--- NOTE | ~2025-01-22 | XR_ITS ---
EXAMINATION: XR HAND, RIGHT CLINICAL INFORMATION: M79.641 - Pain in right hand COMPARISON: Previous x-ray most recent December 2024 TECHNIQUE: PA, lateral, and oblique views of the right hand. FINDINGS: Single screw across the DIP joint of the fifth finger. This appears unchanged. No fracture or dislocation. Arthritis at the IP joints with joint space narrowing osteophyte formation and slight extension of the DIP joints of the second through fourth fingers. There is slight flexion at the MCP joint and extension IP joint of the thumb. There is soft tissue swelling adjacent to the DIP joint of the fifth finger. XR/XR hand RT min 3V IMPRESSION: No change in fusion hardware across the DIP joint of the fifth finger. There is adjacent soft tissue swelling. Arthritis at the IP joints of the second through fourth fingers, IP joint and MCP joint of the thumb. Electronically signed by: Lili Dsouza MD 01/22/2025 10:34 AM JESSICA
--- OUTSIDE RECORDS SUMMARY | 2025-01-22 08:13 | XMS_ITS | Patient Health Record ---
Author Organization [facility] Address [address] [place] [address] Care Team Providers Care Male Impersonator Name Role Phone Nya (RETIRED) Mathew OROURKE Primary Care Provide r Lor NelsonKenney Unavailable [phone] Allergies No Known Allergies Reason For Referral [...] APPOINTMENT ON 11/16/[address] 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 alcohol Problems Problem Type SNOMED Code ICD Code Onset Dates Problem Status W/U Status Risk Notes Problem Colon cancer screening (426306527) Colon cancer screening (Z12.11) Active confirmed Problem Pre-procedure evaluation check (328633755) Encounter for other preprocedural examination (Z01.818) Active confirmed Problem Diverticular disease of colon (469518066) Diverticulosis of large intestine without perforation or abscess without bleeding (K57.30) Active confirmed Problem History of polyp of colon (situation) (482551236) History of colon polyps (Z86.010) Active confirmed Plan Of Treatment Pending Test Test Name Order Date Pathology 08/19/2023 Future Test Test Name Order Date COLONOSCOPY 04/29/2023 Insurance Providers Payer Name Payer Address Payer Phone Subscriber Number Group Number Insured Name Patient Relationship to Insured Coverage Start Date Coverage End Date [facility] [employer] [address] [place] [address] [id number] SALTY CASTANEDA Self - patient is [...]
== END 2025-01-22 08:03 | disposition home or self-care (01) ==
LOC: HO.HOSX 08:02
DX: Z47.89 Encounter for other orthopedic aftercare (principal); Z98.1 Arthrodesis status; Z96.651 Presence of right artificial knee joint
CPT/HCPCS: 73130

== ENCOUNTER 2025-01-22 09:59 | Outpatient (AMB) | payer BC, SELFPAY ==
--- NOTE | 2025-01-22 10:26 | A.OFFVIS_ITS ---
Vital Signs 01/22/25 10:27 Height 5 ft 11 in Weight 144 lb BMI 20.1 Intake Visit Reasons: PO RT SF DIP arthrodesis 12/13/24 AR Intake Note: [place] is a 69 year old right hand dominant male who presents today for a Post- Operative Visit status post Right Small Finger DIP Joint Arthrodesis performed by Dr. Hendrix on 12/13/24. He was last seen on 12/26/24 where he was placed in a 2 finger spica cast involving the ring and small fingers. Cast off and XR obtained today in office. Patient reports that he is doing well, with little pain. When he felt pain he took Advil with good releif. He had a Dental filling on 01/14/25 where he was required to take prophyllactic Abx. He rpeorts that he is feeling significant stiffness of the fingers since cast removal. Allergies No Known Allergies (No Known Allergies*) Allergy (Verified 01/22/25 10:27) HPI HPI PO RT SF DIP arthrodesis 12/13/24 AR: Details: [place] is a 69 year old right hand dominant male who presents today for a Post- Operative Visit status post Right Small Finger DIP Joint arthrodesis performed by Dr. Hendrix on 12/13/24. He was last seen on 12/26/24 where he was placed in a 2 finger spica cast involving the ring and small fingers. Cast off and XR obtained today in office. Patient reports that he is doing well, with little pain. When he felt pain he took Advil with good relief. He had a Dental filling on 01/14/25 where he was required to take prophylactic antibiotics from his previous knee replacement at [facility]. He reports that he is feeling significant stiffness of the fingers since cast removal. [facility] Medical History (Updated 01/14/25 @ 15:37 by SUSY Cedeño) Anemia History of pacemaker Dislocation of finger Chronic low back pain Knee pain, right HSV (herpes simplex virus) infection Essential hypertension Non-rheumatic mitral regurgitation UTI (urinary tract infection) Prostate cancer Elevated PSA BPH (benign prostatic hyperplasia) Surgical History (Updated 12/26/24 @ 15:05 by SUSY Ford) History of total right knee replacement Status post tricuspid valve repair (~2020) Status post mitral valve repair (~2020) History of cardiac catheterization (~07/2020) History of esophagogastroduodenoscopy (EGD) H/O colonoscopy Family History Mother No problems noted. Father No problems noted. 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 Neuro: Normal sensation of the tips of all digits of the right hand at this time Vascular: Cap refill brisk Pain: No Tenderness to palpation about incision sites on right small finger Skin: Well approximated and well healing incision sites noted on the dorsal aspect of the distal phalanx of the right small finger, as well as on the distal tip of the right small finger No lacerations or abrasions. General: No ecchymosis, erythema, or evidence of infection. Psych: Appears grossly normal Affect normal Attitude cooperative Results Reviewed Results Reviewed: X-rays obtained in the office today and independently reviewed by me, Tee Mcdowell PA-C, demonstrate status post arthrodesis of the D IP joint of the right small finger with all orthopedic hardware in place and in satisfactory clinical alignment with some evidence of early healing. Assessment & Plan Assessment & Plan (1) Status post fusion of joint of finger: Code(s): Z98.1 - Arthrodesis status Category: Surgical Plan 1. Status post arthrodesis of the IP joint of right small finger DOS 12/13/2024 Patient appears to be recovering well postoperatively Patient is educated about the typical recovery course Sutures removed, Steri-Strips applied at last visit Patient is provided with a fingertips splint to be worn at essentially all times except for bathing May wash incision with soap and water at this time OT referral placed for range of motion of all other digits of the right hand, as his entire hand has gotten fairly stiff due to immobilization Patient understands this and is amenable to this plan Follow-up in 4-5 weeks with repeat x-rays for reassessment sooner with any acute concerns Orders: Orders XR hand RT min 3V Today M79.641 - Pain in right hand OT Evaluation and Treatment Today Z98.1 - Arthrodesis status Coding Level of Care Code Global (97072) Diagnoses Status post fusion of joint of finger Z98.1
[2025-01-22 10:27] VITALS: BMI 20.1
== END 2025-01-22 11:08 | disposition home or self-care (01) ==
LOC: HO.HOS 10:00
PROVIDERS: PCP Physician Assistant Medical
DX: Z98.1 Arthrodesis status (principal)
CPT/HCPCS: 99024

== ENCOUNTER → 2025-01-22 10:02 | Outpatient (BNV) | payer BC, SELFPAY | PROVIDERS: Visit Provider Radiology Diagnostic Radiology | DX: M19.041 Primary osteoarthritis, right hand (principal) | CPT/HCPCS: 73130 ==